=== PATIENT | female | born 1955 | race Caucasian/White ===

== ENCOUNTER → 2016-06-03 | Outpatient (REF) | payer MEDICARE, MEDICAID ==
[~2016-06-03] MED LIST: ASPI81TA11 PO; BUSP15TA47 PO; CLOP75TA2 PO; CRES40TA PO; FAMO40TA3 PO; FURO20TA2 PO; GLIM1TAB PO; MIRT15TA3 PO; SITA50TAB PO; SYNT50TA PO; VESI10TA PO; ZETI10TA2 PO; fenofibrate OR; metoprolol OR; potassium OR
[2016-06-03 14:13] LABS: CALCIUM OXALATE CRYSTALS MODERATE; YEAST LIKE CELL URINE AUTO SMALL
== END ==
LOC: M SMT 13:06
PROVIDERS: ATTEND Nurse Practitioner Women's Health
DX: R31.0 Gross hematuria (principal)
CPT/HCPCS: 81001; 87086; 88108; G0463

== ENCOUNTER → 2016-06-28 | Outpatient (REF) | payer MEDICARE, MEDICAID ==
[2016-06-28 14:37] LABS: PERCENT SATURATION 13.7 % (13.2-37.4)
== END ==
LOC: M LAB REF 13:15
PROVIDERS: ATTEND Internal Medicine Nephrology
DX: D50.9 Iron deficiency anemia, unspecified (principal)

== ENCOUNTER 2016-07-19 17:34 | Inpatient (IN) | payer MEDICARE, MEDICAID ==
[~2016-07-19] VITALS: Ht 152.4 cm; Wt 100.4 kg
[2016-07-19] MEDS ORDERED: CLOM25CA2 PO (19:32)
[2016-07-19] MEDS ORDERED: GLIM2TAB PO (19:32)
[2016-07-19] MEDS ORDERED: POTA10CA PO (19:32)
[2016-07-19] MEDS ORDERED: SITA50TAB PO (19:32)
[2016-07-19] MEDS ORDERED: CALC1CAP31 PO (19:32)
[2016-07-19] MEDS ORDERED: CLOM50CA3 PO (19:32)
[2016-07-19] MEDS ORDERED: FERR325T PO (19:32)
[2016-07-19] MEDS ORDERED: HYDR25T PO (19:32)
[2016-07-19] MEDS ORDERED: METO25TAB PO (19:37)
[2016-07-19] MEDS ORDERED: METH1TAB2 PO (19:37)
[2016-07-19] MEDS ORDERED: SERT-138 PO (19:37)
[2016-07-19] MEDS ORDERED: DOXE10CA PO (19:37)
[2016-07-19] MEDS ORDERED: LEVO75TA4 PO (19:37)
[2016-07-19] MEDS ORDERED: OXYB15TA PO (19:37)
[2016-07-19] MEDS ORDERED: FENO67CA2 PO (19:37)
[2016-07-19 20:00] VITALS: BP 140/52
[2016-07-19] MEDS ORDERED: ONDANSETRON 4MG/2ML VIAL (J2405) IV PRN (20:15)
[2016-07-19] MEDS ORDERED: DEXTROSE 50% 50 ML SYRINGE IV PRN (20:15)
[2016-07-19] MEDS ORDERED: ACETAMINOPHEN TAB 650MG DOSE (2X325MG) PO PRN (20:15)
[2016-07-19] MEDS ORDERED: GLUCOSE 4 GM CHEW TABLET PO PRN (20:15)
[2016-07-19] MEDS ORDERED: GLUCAGON FOR INJ 1 MG VIAL (J1610) SC PRN (20:15)
[2016-07-19] MEDS ORDERED: IPRATROPIUM 0.5MG/ALBUTEROL 2.5MG INH SOL UD 3ML (DUONEB)(J7620) NEB PRN (20:15)
[2016-07-19] MEDS ORDERED: PERCOCET 5MG/325MG TAB PO PRN (20:15)
[2016-07-19] MEDS ORDERED: ONDANSETRON 4 MG TAB (S0181) PO PRN (20:15)
--- NOTE | 2016-07-19 20:41 | HPEPDOC ---
Medical History and Physical Date of Admission Jul 19, 2016 at 18:18 History and Physical HISTORY AND PHYSICAL Date of admission: 07/19/2016 PCP: Eva Muñiz in [facility] Chief complaint: Hypoxic HPI: 60-year-old female with COPD on 2 L home O2, depression, diabetes mellitus type 2, GERD, hyperlipidemia, hypertension, history of AK, hypothyroidism, overactive bladder, horshoe kidney, unspecified CHF who presented to [facility] after her family thought that she was confused this morning and might of had a facial droop. At [facility], they were unable to appreciate any facial droop, and a CT head was unremarkable. However, she was quite hypoxic. She initially arrived satting in the 70s, and needed a nonrebreather. After dose of Lasix and Solu-Medrol, as well as DuoNeb's, they were able to wean her to 4 L nasal cannula. Additionally, at [facility], they noticed that her d- dimer and BNP were both elevated. She underwent a right nephrostomy tube placement yesterday with interventional radiology here at [facility] [place]. Upon my interview with her, she is a challenging historian. She presents essentially no complaints to me, and her review of systems is relatively negative as well. She is not confused on my exam, but she does require redirecting. She denies any chest pain here, but reported some intermittent chest pain at [facility]. An EKG at [facility]. was unremarkable, and a troponin there was negative. In light of the fact that she had recently had a nephrostomy tube placed here, and was scheduled to have another urologic procedure here tomorrow, [facility] emergency department sought transfer. Past medical history: COPD on 2 L home O2, depression, diabetes mellitus type 2 , GERD, hyperlipidemia, hypertension, history of AK, hypothyroidism, overactive bladder, horshoe kidney, unspecified CHF Past surgical history: Cardiac stent Family history: Kidney disease, heart disease, lung disease Social history: The patient currently lives alone. She denies any tobacco or alcohol use. Allergies: Latex and dextromethorphan Review of systems: General: negative for fever and chills Eyes: Negative for vision changes and ocular discharge ENT: Negative for sore throat and nose bleed Cardiovascular: Negative for chest pain and palpitations Respiratory: Negative for cough and shortness of breath GI: Negative for nausea, vomiting, diarrhea, constipation Musculoskeletal: Negative for neck and back pain Neuro: Negative for headache, dizziness, numbness, tingling Psych: Positive for depression. Negative for suicidal ideation Endocrine: Positive for polyuria : Negative for dysuria Heme: Negative for bruising and bleeding Home meds: See below Physical exam: Vital signs: Vital Sign - Last 24 Hours 07/19/16 07/19/16 20:00 21:08 Temp 96.8 Pulse 100 100 Resp 18 B/P 140/52 Pulse Ox 97 O2 Delivery Nasal Cannula O2 Flow Rate 2.0 Gen.: awake, requires redirection, no acute distress Eyes: Extraocular movements intact, normal sclera ENT: Moist mucous membranes Cardiovascular: RRR, no murmurs rubs or gallops Lungs: dimished breath sounds, but no wheeze or rhonchi Abdomen: Soft, NT/ND, normal BS Musculoskeletal: normal range of motion Extremities: No peripheral edema Neuro: oriented 3, normal speech, no focal deficits, no focal deficit or facial droop Psych: Normal mood with congruent affect Labs and radiology: See below BUN 24, creatinine 2.57 Hemoglobin 10.2 D-dimer elevated Lactate and troponin are unremarkable BMP greater than 1800 CT of the head unremarkable Chest x-ray shows concern for pulmonary edema Assessment and plan: 60-year-old female with COPD on 2 L home O2, depression, diabetes mellitus type 2, GERD, hyperlipidemia, hypertension, CAD status post cardiac stents, history of AK, hypothyroidism, overactive bladder, horshoe kidney, unspecified CHF who was transferred from [facility] for hypoxia. 1. Hypoxia: Etiology for this is multifactorial. Patient's d-dimer is elevated, and given her kidney function, we cannot complete a CTA. We will assess a d- dimer to rule out any pulmonary embolism as the source of her hypoxia. Additionally, it appears that she had some volume overload, as a chest x-ray at [facility] showed concern for pulmonary edema, and her BNP was elevated. She received a dose of Lasix at [facility], and she does not appear to be volume overloaded at this time. I will hold off on giving her any additional Lasix. Also of concern, is a possible COPD exacerbation. She does not have any wheeze upon my exam, but the ED physician at [facility] reported significant wheezing and rhonchi, and the patient has already received Solu-Medrol, DuoNeb' s by the time I saw her. At this time, we will continue her on Solu-Medrol, Levaquin, and DuoNeb's. We also will assess echo, as we do not have one on file. 2. Chest pain: The patient currently denies any chest pain here. However, there is a report at the outside ER, that she had chest pain. An initial EKG and troponin were unremarkable. We'll continue to trend troponins here. We will also monitor on telemetry. 3. Elevated creatinine: The patient's creatinine is 2.57. She is noted to have some degree of chronic kidney disease, but it is unclear what her baseline is. The last creatinine we have in our EMR was 3 years ago and was in the upper ones. She is already received a dose of IV Lasix today, and we will reassess her kidney function in the morning before administering any further IV Lasix. Continue home Rocaltrol. 4. Potential confusion: The patient is not confused upon my exam, but she does require frequent redirection. CT head at the outside ER was unremarkable. We will check a urine culture, as she had recent instrumentation of her urinary tract. Of note, upon reviewing her home medications, she takes a TCA in the morning, and 2 TCAs at night. We will hold both TCAs that she is receiving at night. We will also hold her nightly Atarax. Currently she is afebrile with a normal white count. Check ABG. 5. Diabetes mellitus type 2: Hold home glimepiride and Januvia. Use sliding scale insulin while in-house. 6. CAD status post cardiac stents, history of AK, hyperlipidemia: Continue home aspirin, Plavix, anxiety, statin, beta donald. 7. Chronic unknown CHF: We will get an echo to assess the patient's cardiac function. Continue home by mouth Lasix and KCl. 8. Hypothyroidism: Continue home Synthroid. 9. Depression: Continue home Zoloft and a.m. TCA. We are holding her p.m. doxepin and p.m. clomipramine secondary to her potential confusion. 10. Horseshoe kidney with a recent right nephrostomy tube placement: I have spoken to Dr. Hernandez who is on-call for her primary urologist. He is aware of her admission, and has canceled her procedure tomorrow. He says that they will reschedule when the patient is well again. DVT prophylaxis: Heparin Dispo: admit as an inpatient to the service of Dr. Martinez CODE STATUS: DNR/DNI Vital Signs see above Home Medications Scheduled (Methenamine Hippurate) 1 Gm Tab 1 GM PO BID Aspirin (Aspirin Low Dose) 81 Mg Tab 81 MG PO DAILY Calcitriol (Calcitriol) 0.25 Mcg Cap 0.25 MCG PO QWEEK MONDAYS Clomipramine HCl (Clomipramine HCl) 25 Mg Cap 25 MG PO QAM Clomipramine HCl (Clomipramine HCl) 50 Mg Cap 50 MG PO QHS Clopidogrel Bisulfate (Clopidogrel) 75 Mg Tab 75 MG PO DAILY STOPPED MED UNTIL AFTER SURGERY SCHEDULED ON 07/20 Doxepin HCl (Doxepin HCl) 10 Mg Cap 10 MG PO QHS Ezetimibe (Zetia) 10 Mg Tab 10 MG PO QHS Famotidine (Famotidine) 40 Mg Tab 40 MG PO QHS Fenofibrate (Fenofibrate Micronized) 67 Mg Cap 67 MG PO DAILY Ferrous Sulfate (Ferrous Sulfate) 325 Mg Tab 325 MG PO DAILY Furosemide (Furosemide) 20 Mg Tab 20 MG PO DAILY NORMALLY TAKES QAM, TOOK LAST NIGHT 07/18 Glimepiride (Glimepiride) 2 Mg Tab 2 MG PO DAILY Hydroxyzine HCl (Hydroxyzine HCl) 25 Mg Tab 25 MG PO QHS Levothyroxine Sodium (Synthroid) 75 Mcg Tab 75 MCG PO DAILY Metoprolol Tartrate (Metoprolol Tartrate) 25 Mg Tab 25 MG PO BID Oxybutynin Chloride (Oxybutynin Chloride ER) 15 Mg Tab 15 MG PO DAILY Potassium Chloride (Klor-Con M10) 10 Meq Tabcr 10 MEQ PO QHS Rosuvastatin Calcium (Crestor) 40 Mg Tab 40 MG PO QPM PT STATES HAS NOT TAKEN IN A FEW DAYS Sertraline HCl (Sertraline HCl) 100 Mg Tab 150 MG PO QHS STOPPEDUNTIL AFTER SURGERY SCHEDULED ON 07/20 Sitagliptin (Januvia) 50 Mg Tab 50 MG PO DAILY Allergies Coded Allergies: Dextromethorphan (Unverified Allergy, Unknown, HIVES, 07/19/16) Latex (Verified Allergy, Unknown, 12/10/13) MILDRED HOBBS Jul 19, 2016 20:41
[2016-07-19] MEDS: FAMOTIDINE 20 MG TAB PO SCH (20:51)
[2016-07-19] MEDS: CLOPIDOGREL 75 MG TAB PO SCH (20:51)
[2016-07-19] MEDS: FUROSEMIDE 20 MG TAB PO SCH (20:51)
[2016-07-19] MEDS: ASPIRIN 81 MG ENTERIC TAB PO SCH (20:51)
[2016-07-19] MEDS ORDERED: LevoFLOXacin 750 MG TABLET PO SCH (21:00)
[2016-07-19] MEDS: oxyBUTYnin *DITROPAN XL* 5 MG TABCR PO SCH (21:05)
[2016-07-19] MEDS: NYSTATIN 100,000 UNITS/GM TOPICAL PWD 15 GM TOP SCH (21:06)
[2016-07-19] MEDS: methylPREDNISolone INJ 40 MG/1 ML VIAL (J2920) IV SCH (21:06)
[2016-07-19] MEDS: HEPARIN SOD (PORCINE) 5000 UNITS/ML VIAL SC SCH (21:06)
[2016-07-19] MEDS: SERTRALINE 100 MG TAB PO SCH (21:07)
[2016-07-19] MEDS: POTASSIUM CHLORIDE 10 MEQ SR TABLET PO SCH (21:08)
[2016-07-19] MEDS: METOPROLOL TART 25 MG TABLET PO SCH (21:08)
[2016-07-19] MEDS: ROSUVASTATIN 10 MG TAB (CRESTOR) PO SCH (21:08)
[2016-07-19] MEDS: EZETIMIBE 10 MG TAB (ZETIA) PO SCH (21:08)
[2016-07-19] MEDS: HumaLOG INSULIN (NovoLOG) PER UNIT SC SCH (21:20)
[2016-07-19 21:52] LABS: ABG BASE EXCESS 1.8 (-2.0-2.0); ABG HCO3 30.3 MEQ/L (22.0-26.0); ABG PARTIAL PRESSURE O2 112.3 mmHg (75.0-100.0); ABG STANDARD HCO3 26.1 MEQ/L (22.0-26.0); ABG TOTAL CO2 32.5 MEQ/L (23.0-31.0); ABG pH (ARTERIAL) 7.253 UNITS (7.350-7.450)
[2016-07-19 21:56] LABS: ABG PARTIAL PRESSURE CO2 70.2 mmHg (35.0-45.0)
[2016-07-20] VITALS (8 sets, daily range): BP systolic 101–136; BP diastolic 49–79; O2SAT 93
[2016-07-20] MEDS: IPRATROPIUM 0.5MG/ALBUTEROL 2.5MG INH SOL UD 3ML (DUONEB)(J7620) NEB SCH ×7 (01:44→23:45)
[2016-07-20 04:48] LABS: ABG BASE EXCESS 2.3 (-2.0-2.0); ABG HCO3 30.3 MEQ/L (22.0-26.0); ABG PARTIAL PRESSURE CO2 65.6 mmHg (35.0-45.0); ABG STANDARD HCO3 26.5 MEQ/L (22.0-26.0); ABG TOTAL CO2 32.3 MEQ/L (23.0-31.0); ABG pH (ARTERIAL) 7.282 UNITS (7.350-7.450)
[2016-07-20 05:49] LABS: BASO % 0.1 % (0.0-1.0); EOS % 0.4 % (0.0-3.0); LARGE UNSTAINED CELL % 0.5 % (0.0-4.0); LYMPH # 0.5 K/mm3 (1.5-4.5); LYMPH % 5.3 % (24.0-44.0); MEAN CORPUSCULAR HEMOGLOBIN 26.6 pg (27.0-33.0); MEAN CORPUSCULAR HGB CONC 29.2 g/dl (32.0-36.5); MEAN CORPUSCULAR VOLUME 91.2 fl (80.0-96.0); MONO # 0.2 K/mm3 (0.0-0.8); MONO % 2.1 % (0.0-5.0); NEUTROPHILS # 7.8 K/mm3 (1.8-7.7); NEUTROPHILS % 91.6 % (36.0-66.0); PLATELET COUNT, AUTOMATED 281 k/mm3 (150-450); RED CELL DISTRIBUTION WIDTH 14.2 % (11.5-14.5); WHITE BLOOD COUNT 8.5 K/mm3 (4.0-10.0)
[2016-07-20 05:54] LABS: ADD MORPHOLOGY? YES
[2016-07-20] MEDS: LEVOTHYROXINE 0.075 MG TAB (75 MCG) PO SCH (05:57)
[2016-07-20] MEDS: HEPARIN SOD (PORCINE) 5000 UNITS/ML VIAL SC SCH ×3 (05:57→21:25)
[2016-07-20] MEDS: methylPREDNISolone INJ 40 MG/1 ML VIAL (J2920) IV SCH ×3 (05:57→21:25)
[2016-07-20 05:59] LABS: ANION GAP 7 MEQ/L (8-16); BLOOD UREA NITROGEN 37 MG/DL (7-18); CALCIUM LEVEL 8.9 MG/DL (8.8-10.2); CARBON DIOXIDE LEVEL 31 MEQ/L (21-32); CHLORIDE LEVEL 101 MEQ/L (98-107); CREATININE FOR GFR 2.88 MG/DL (0.55-1.02); GLOMERULAR FILTRATION RATE 17.6 (>45); GLUCOSE, FASTING 211 MG/DL (80-110); MAGNESIUM LEVEL 1.7 MG/DL (1.8-2.4); POTASSIUM SERUM 4.2 MEQ/L (3.5-5.1); SODIUM LEVEL 139 MEQ/L (136-145)
[2016-07-20 07:25] LABS: HYPOCHROMASIA 1+
[2016-07-20] MEDS ORDERED: MAG SULF 1GM/100ML (MAG RUN) 1 GM in APPROPRIATE DILUENT 1 EA IV ONE (08:00)
[2016-07-20] MEDS: oxyBUTYnin *DITROPAN XL* 5 MG TABCR PO SCH (08:36)
[2016-07-20] MEDS: ASPIRIN 81 MG ENTERIC TAB PO SCH (08:36)
[2016-07-20] MEDS: CLOPIDOGREL 75 MG TAB PO SCH (08:37)
[2016-07-20] MEDS: FERROUS SULFATE 325MG TAB PO SCH (08:37)
[2016-07-20] MEDS: FUROSEMIDE 20 MG TAB PO SCH (08:37)
[2016-07-20] MEDS: METOPROLOL TART 25 MG TABLET PO SCH ×2 (08:37→21:29)
[2016-07-20] MEDS: NYSTATIN 100,000 UNITS/GM TOPICAL PWD 15 GM TOP SCH ×2 (08:39→21:25)
[2016-07-20] MEDS: HumaLOG INSULIN (NovoLOG) PER UNIT SC SCH ×4 (08:39→21:00)
--- NOTE | 2016-07-20 12:19 | REP ---
Chest x-ray: Two views. History: VQ scan. Shortness of breath. Elevated D-dimer. Comparison chest x-ray September 06, 2004. Findings: Right aortic arch is again seen. There is a new plate-like atelectasis in the left perihilar region versus fibrosis. No pleural effusion is seen. No infiltrate is noted. Coronary artery stent material is visible. EKG monitoring electrodes and oxygen delivery tubing are seen. Impression: Plate-like atelectasis versus linear scarring left mid lung zone. Status post coronary artery stenting. Right aortic arch. Signed by Curtis Garcia MD 07/20/2016 12:27 P
--- NOTE | 2016-07-20 12:28 | REP ---
V/Q SCAN: Following the intravenous administration of 5.4 mCi of technetium 99m tagged MAA and the inhalation of 1.0 mCi of technetium 99m DTPA aerosol, multiple images of the lungs are obtained in various projections. The heart appears enlarged causing a matching defect on the left lung base. Small subsegmental matching posterior defects seen in the right lower lobe as well as in the left lower lobe. I do not see areas of significant V/Q mismatch. IMPRESSION: Findings consistent with a low probability of pulmonary embolism. Signed by Tolu Lin MD 07/21/2016 04:36 P
--- NOTE | 2016-07-20 13:00 | IPNPDOC ---
Subjective Date Seen The patient was seen on 07/20/16. Subjective Chief Complaint/HPI The patient is a 60-year-old female admitted with a reason for visit of Hypoxia. Events since last encounter feeling better, confusion resolved. no fever or chills, breathing better, no chest pain , has some cough , no nausea or vomiting or diarrhea Objective Physical Examination General Exam: Positive: Alert, No Acute Distress Eye Exam: Positive: Conjunctiva & lids normal, EOMI, PERRLA, Negative: Sclera icteric ENT Exam: Positive: Atraumatic, Mucous membr. moist/pink, Pharynx Normal Neck Exam: Positive: Supple, Negative: JVD, thyromegaly Chest Exam: Positive: Diminished, Rales, Wheezing Heart Exam: Positive: Normal S1, Normal S2, Rate Normal, Regular Rhythm, Negative: Murmurs, Rubs Telemetry: Positive: No significant arrhythmia Abdomen Exam: Positive: Normal bowel sounds, Soft, Negative: Hepatospenomegaly, Tenderness Extremity Exam: Positive: Edema Skin Exam: Positive: Nl turgor and temperature, Negative: Breakdown, Rash Assessment /Plan Problems (1) Acute on chronic respiratory failure with hypoxia and hypercapnia Status: Acute Problem Text: multifactorial due to copd and chf exacerbation and sedative medication rule out pulmonary embolism as has elevated d dimer. awaiting vq scan. patient also had procedure the day prior to admission and received midazolam and fentanyl which could also have worsened her respiratory failure. will continue with nebulizations, lasix. will repeat ABG . (2) Acute metabolic encephalopathy Status: Acute Problem Text: due to hypercarbia, improving. (3) COPD exacerbation Status: Acute Problem Text: continue nebs , steroids and antibiotics. (4) Acute kidney injury superimposed on CKD Status: Acute Problem Text: has obstructive uropathy , has a nephrostomy drain on the right placed on 07/18/16 drain bad to gravity (5) Obstructive uropathy Status: Acute Problem Text: due to horse shoe kidney has nephrostomy bag (6) MARY on CPAP Status: Chronic (7) Morbid obesity Status: Chronic (8) Horseshoe kidney Status: Chronic (9) Hypothyroid Status: Chronic Problem Text: continue synthroid (10) Hyperlipidemia Status: Chronic (11) Hypertension Status: Chronic Problem Text: continue metoprolol (12) CAD (coronary artery disease) Status: Chronic Problem Text: continue metoprolol, statin , asa and plavix. (13) Overactive bladder Status: Chronic Problem Text: oxybutynin (14) Depression Status: Chronic Problem Text: sertraline (15) Diabetes Status: Chronic (16) CHF (congestive heart failure) Status: Chronic Problem Text: continue lasix unknown type at this time will get echo. VS, I&O, 24H, Fishbone Vital Signs/I&O Vital Signs Date Time Temp Pulse Resp B/P Pulse Ox O2 Delivery O2 Flow Rate FiO2 07/20/16 12:00 97.4 96 18 133/62 96 Nasal Cannula 2.0 I&O- Last 24 Hours up to 6 AM 07/20/16 06:00 Intake Total 500 ml Output Total 400 ml Balance 100 ml Laboratory Data 24H LABS Laboratory Tests 2 07/19/16 20:49: Creatine Kinase MB 1.6, Creatine Kinase MB Relative Index 3.13, Total Creatine Kinase 51, Troponin I < 0.02 07/19/16 21:01: Bedside Glucose (Misc Panel) 228H 07/19/16 21:47: Arterial Blood pH 7.253L, Arterial Blood Partial Pressure CO2 70.2*H, Arterial Blood Partial Pressure O2 112.3H, Arterial Blood Total CO2 32.5H, Arterial Blood HCO3 30.3H, Arterial Blood Base Excess 1.8, Arterial Blood Oxygen Saturation 98.3, Blood Gas Bicarbonate Standard 26.1H 07/19/16 23:50: D-Dimer, Quantitative 882.4H 07/20/16 04:01: Arterial Blood pH 7.282L, Arterial Blood Partial Pressure CO2 65.6*H, Arterial Blood Partial Pressure O2 84.0, Arterial Blood Total CO2 32.3H, Arterial Blood HCO3 30.3H, Arterial Blood Base Excess 2.3H, Arterial Blood Oxygen Saturation 95.9, Blood Gas Bicarbonate Standard 26.5H 07/20/16 05:25: Anion Gap 7L, Basophilic Stippling 1+, White Blood Count 8.5, Red Blood Count 3.57L, Hemoglobin 9.5L, Hematocrit 32.5L, Mean Corpuscular Volume 91.2, Mean Corpuscular Hemoglobin 26.6L, Mean Corpuscular Hemoglobin Concent 29.2L, Red Cell Distribution Width 14.2, Platelet Count 281, Neutrophils (%) (Auto) 91.6H, Lymphocytes (%) (Auto) 5.3L, Monocytes (%) (Auto) 2.1, Eosinophils (%) (Auto) 0.4, Basophils (%) (Auto) 0.1, Neutrophils # (Auto) 7.8H, Lymphocytes # (Auto) 0.5L, Monocytes # (Auto) 0.2, Eosinophils # (Auto) 0.0, Basophils # (Auto) 0.0, Blood Urea Nitrogen 37H, Creatinine 2.88H, Sodium Level 139, Potassium Level 4.2 , Chloride Level 101, Carbon Dioxide Level 31, Calcium Level 8.9, Total Creatine Kinase 47, Creatine Kinase MB 1.4, Creatine Kinase MB Relative Index 2.97, Glomerular Filtration Rate 17.6L, Hypochromasia 1+, Large Unclassified Cells # 0.0, Large Unclassified Cells % 0.5, Magnesium Level 1.7L, Platelet Estimate NORMAL, Troponin I < 0.02 07/20/16 12:18: Bedside Glucose (Misc Panel) 133H CBC/BMP Laboratory Tests 07/20/16 05:25 Calcium Level 8.9, Total Creatine Kinase 47, Red Blood Count 3.57 L, Mean Corpuscular Volume 91.2, Mean Corpuscular Hemoglobin 26.6 L, Mean Corpuscular Hemoglobin Concent 29.2 L, Red Cell Distribution Width 14.2, Neutrophils (%) ( Auto) 91.6 H, Lymphocytes (%) (Auto) 5.3 L, Monocytes (%) (Auto) 2.1, Eosinophils (%) (Auto) 0.4, Basophils (%) (Auto) 0.1, Neutrophils # (Auto) 7.8 H , Lymphocytes # (Auto) 0.5 L, Monocytes # (Auto) 0.2, Eosinophils # (Auto) 0.0, Basophils # (Auto) 0.0 Microbiology Microbiology 07/20/16 Urine Culture, Received Pending STEPHIE OH MD Jul 20, 2016 13:00
[2016-07-20 17:42] LABS: ABG HCO3 28.9 MEQ/L (22.0-26.0); ABG PARTIAL PRESSURE CO2 56.8 mmHg (35.0-45.0); ABG STANDARD HCO3 26.3 MEQ/L (22.0-26.0); ABG TOTAL CO2 30.7 MEQ/L (23.0-31.0); ABG pH (ARTERIAL) 7.325 UNITS (7.350-7.450)
[2016-07-20] MEDS ORDERED: IPRATROPIUM 0.5MG/ALBUTEROL 2.5MG INH SOL UD 3ML (DUONEB)(J7620) NEB SCH (20:00)
[2016-07-20] MEDS: ROSUVASTATIN 10 MG TAB (CRESTOR) PO SCH (21:26)
[2016-07-20] MEDS: POTASSIUM CHLORIDE 10 MEQ SR TABLET PO SCH (21:27)
[2016-07-20] MEDS: SERTRALINE 100 MG TAB PO SCH (21:28)
[2016-07-20] MEDS: EZETIMIBE 10 MG TAB (ZETIA) PO SCH (21:29)
[2016-07-20] MEDS: FAMOTIDINE 20 MG TAB PO SCH (21:29)
[2016-07-21] MEDS ORDERED: SLF 3 ML SYR IV PRN (00:30)
[2016-07-21] MEDS: IPRATROPIUM 0.5MG/ALBUTEROL 2.5MG INH SOL UD 3ML (DUONEB)(J7620) NEB SCH ×5 (04:15→20:22)
[2016-07-21] MEDS: methylPREDNISolone INJ 40 MG/1 ML VIAL (J2920) IV SCH (04:18)
[2016-07-21 05:45] VITALS: BP 115/53
[2016-07-21] MEDS: LEVOTHYROXINE 0.075 MG TAB (75 MCG) PO SCH (05:54)
[2016-07-21] MEDS: HEPARIN SOD (PORCINE) 5000 UNITS/ML VIAL SC SCH ×3 (05:54→21:16)
[2016-07-21] MEDS: SLF 3 ML SYR IV SCH ×3 (05:54→21:16)
[2016-07-21 06:20] LABS: EOS % 0.2 % (0.0-3.0); LARGE UNSTAINED CELL # 0.1 K/mm3 (0.0-0.4); LARGE UNSTAINED CELL % 0.6 % (0.0-4.0); LYMPH # 0.6 K/mm3 (1.5-4.5); MEAN CORPUSCULAR HEMOGLOBIN 26.6 pg (27.0-33.0); MEAN CORPUSCULAR HGB CONC 29.1 g/dl (32.0-36.5); MEAN CORPUSCULAR VOLUME 91.3 fl (80.0-96.0); MONO # 0.3 K/mm3 (0.0-0.8); MONO % 2.5 % (0.0-5.0); NEUTROPHILS # 9.2 K/mm3 (1.8-7.7); NEUTROPHILS % 90.7 % (36.0-66.0); PLATELET COUNT, AUTOMATED 327 k/mm3 (150-450); RED CELL DISTRIBUTION WIDTH 14.2 % (11.5-14.5); WHITE BLOOD COUNT 10.1 K/mm3 (4.0-10.0)
--- NOTE | 2016-07-21 06:20 | ECHO ---
DATE OF PROCEDURE: 07/20/2016 DATE OF : 1955 AGE: 60 REFERRING PROVIDER: Dr. Neelima Carlton. PATIENT LOCATION: Room 3220 REASON FOR ECHOCARDIOGRAM: Heart failure. 2D MEASUREMENTS: IVS: 1.2 cm LV: 3.1 cm LVPW: 1.3 cm LA: 3.7 cm Aorta: 3.1 cm IVC: 1.5 cm DOPPLER MEASUREMENTS: Peak velocity across the aortic valve: 1.6 m/s Peak velocity across the LVOT: 0.85 m/s Mitral E: 1.1 Mitral A: 1.4 Ratio 0.8 2D COMMENTS: 1. Normal left ventricular size, wall thickness and normal global left ventricular systolic function. The estimated global left ventricular systolic ejection fraction is 60% to 65%. 2. Normal left atrium. Normal right atrium and right ventricle. 3. The atrial septum appeared to be normal without evidence of defect or shunt. 4. Normal aortic root. 5. Trace to small pericardial effusion noted around the heart, no evidence of cardiac tamponade. 6. Moderately calcified aortic valve, leaflet excursion was not well visualized. Mildly calcified mitral annulus with normal anterior mitral valve leaflet motion. Normal tricuspid valve. The pulmonic valve appeared to be normal in limited views. The proximal pulmonary artery branches were not well visualized. 7. The inferior vena cava was normal in size, central venous pressure is most likely normal. DOPPLER: It detects trace aortic regurgitation noted in limited views and trace mitral regurgitation. Abnormal relaxation pattern was noted across the mitral valve leaflets as well as the mitral valve annulus consistent with a delayed relaxation. IMPRESSION: 1. Normal global left ventricular systolic function with probably mild concentric left ventricular hypertrophy. There are some features of left ventricular diastolic dysfunction, grade 1. 2. Aortic valve sclerosis with trace aortic regurgitation and trivial aortic stenosis. 3. Mitral annulus calcification with trace mitral regurgitation. 4. Trace to small pericardial effusion noted around the heart, no evidence of cardiac tamponade.
[2016-07-21 06:21] LABS: CALCIUM LEVEL 8.7 MG/DL (8.8-10.2); CREATININE FOR GFR 3.08 MG/DL (0.55-1.02); GLOMERULAR FILTRATION RATE 16.3 (>45); MAGNESIUM LEVEL 2.2 MG/DL (1.8-2.4); POTASSIUM SERUM 4.7 MEQ/L (3.5-5.1)
[2016-07-21 07:30] VITALS: BP 126/59
[2016-07-21] MEDS: NS 1,000 ML IV SCH ×2 (08:27→21:16)
[2016-07-21] MEDS: HumaLOG INSULIN (NovoLOG) PER UNIT SC SCH ×4 (08:28→20:35)
[2016-07-21] MEDS: NYSTATIN 100,000 UNITS/GM TOPICAL PWD 15 GM TOP SCH ×2 (08:28→21:15)
[2016-07-21] MEDS: ASPIRIN 81 MG ENTERIC TAB PO SCH (08:28)
[2016-07-21] MEDS: oxyBUTYnin *DITROPAN XL* 5 MG TABCR PO SCH (08:29)
[2016-07-21] MEDS: predniSONE 20 MG TAB PO SCH (08:29)
[2016-07-21] MEDS: FERROUS SULFATE 325MG TAB PO SCH (08:29)
[2016-07-21] MEDS: CLOPIDOGREL 75 MG TAB PO SCH (08:29)
[2016-07-21] MEDS: METOPROLOL TART 25 MG TABLET PO SCH ×2 (08:31→21:15)
--- NOTE | 2016-07-21 11:03 | IPNPDOC ---
Subjective Date Seen The patient was seen on 07/21/16. Subjective Chief Complaint/HPI The patient is a 60-year-old female admitted with a reason for visit of Hypoxia. Events since last encounter feeling better, no fever or chills, no shortness of breath any more than usual, no chest pain , she is at her baseline oxygen requirement. , nausea or vomiting or diarrhea. Objective Physical Examination General Exam: Positive: Alert, No Acute Distress Eye Exam: Positive: Conjunctiva & lids normal, EOMI, PERRLA, Negative: Sclera icteric ENT Exam: Positive: Atraumatic, Mucous membr. moist/pink, Pharynx Normal Neck Exam: Positive: Supple, Negative: JVD, thyromegaly Chest Exam: Positive: Diminished, Rales, Wheezing Heart Exam: Positive: Normal S1, Normal S2, Rate Normal, Regular Rhythm, Negative: Murmurs, Rubs Telemetry: Positive: No significant arrhythmia Abdomen Exam: Positive: Normal bowel sounds, Soft, Negative: Hepatospenomegaly, Tenderness Extremity Exam: Positive: Edema Skin Exam: Positive: Nl turgor and temperature, Negative: Breakdown, Rash Assessment /Plan Problems (1) Acute on chronic respiratory failure with hypoxia and hypercapnia Status: Acute Problem Text: Pateint had low pH and high pco2 in her abg on admission showing acute hypercarbic respiratory failure. multifactorial due to copd and chf exacerbation and sedative medication VQ scan low probability for pulmonary embolism. patient also had procedure the day prior to admission and received midazolam and fentanyl which could also have worsened her respiratory failure. will continue with nebulizations, steroids. (2) Acute metabolic encephalopathy Status: Resolved Problem Text: due to hypercarbia (3) COPD exacerbation Status: Acute Problem Text: continue nebs , steroids , CXR with atelectasis vs fibrosis so antibiotic stopped. (4) Acute kidney injury superimposed on CKD Status: Acute Problem Text: Baseline creatinine 1.4 to 1.6 prior to nephrostomy placement on 07/11/16 Now acute worsening of renal function will rule out obstruction will get new renal and bladder US. Possibility of Ischemic ATN is also high as patient was in acute hypoxic and hypercarbic respiratory failure for unknown duration of time. Was very hypoxic on presentation to the other hospital. Also clinically patient looks dry at this point so will give gentle hydration , stop lasix and levofloxacin. has obstructive uropathy with right staghorn calculus and right hydronephrosis. However the right has only 20% overall function. (5) Obstructive uropathy Status: Acute Problem Text: due to horse shoe kidney and staghorn calculi on the right. left as 70% function and right has 20% function. has nephrostomy bag (6) MARY on CPAP Status: Chronic (7) Morbid obesity Status: Chronic (8) Horseshoe kidney Status: Chronic (9) Hypothyroid Status: Chronic Problem Text: continue synthroid (10) Hyperlipidemia Status: Chronic (11) Hypertension Status: Chronic Problem Text: continue metoprolol (12) CAD (coronary artery disease) Status: Chronic Problem Text: continue metoprolol, statin , asa and plavix. (13) Overactive bladder Status: Chronic Problem Text: oxybutynin (14) Depression Status: Chronic Problem Text: sertraline (15) Diabetes Status: Chronic (16) CHF (congestive heart failure) Status: Chronic Problem Text: continue lasix unknown type at this time will get echo. (17) Staghorn calculus Status: Chronic Problem Text: follows with Dr rizo. Plan/VTE VTE Prophylaxis Ordered?: Yes VS, I&O, 24H, Fishbone Vital Signs/I&O Vital Signs Date Time Temp Pulse Resp B/P Pulse Ox O2 Delivery O2 Flow Rate FiO2 07/21/16 08:31 88 126/59 07/21/16 07:30 97.3 22 99 Nasal Cannula 2.0 I&O- Last 24 Hours up to 6 AM 07/21/16 06:00 Intake Total 460 ml Output Total 1100 ml Balance -640 ml Laboratory Data 24H LABS Laboratory Tests 2 07/20/16 12:18: Bedside Glucose (Misc Panel) 133H 07/20/16 12:53: Creatine Kinase MB 1.8, Creatine Kinase MB Relative Index 1.83, Total Creatine Kinase 98#, Troponin I < 0.02 07/20/16 17:00: Arterial Blood pH 7.325L, Arterial Blood Partial Pressure CO2 56.8H, Arterial Blood Partial Pressure O2 81.0, Arterial Blood Total CO2 30.7, Arterial Blood HCO3 28.9H, Arterial Blood Base Excess 2.0, Arterial Blood Oxygen Saturation 95.4, Blood Gas Bicarbonate Standard 26.3H 07/20/16 17:05: Bedside Glucose (Misc Panel) 107 07/20/16 21:15: Bedside Glucose (Misc Panel) 151H 07/21/16 05:35: Anion Gap 8, White Blood Count 10.1H, Red Blood Count 3.54L, Hemoglobin 9.4L, Hematocrit 32.4L, Mean Corpuscular Volume 91.3, Mean Corpuscular Hemoglobin 26.6L, Mean Corpuscular Hemoglobin Concent 29.1L, Red Cell Distribution Width 14.2, Platelet Count 327, Neutrophils (%) (Auto) 90.7H, Lymphocytes (%) (Auto) 6.0L, Monocytes (%) (Auto) 2.5, Eosinophils (%) (Auto) 0.2, Basophils (%) (Auto ) 0.0, Neutrophils # (Auto) 9.2H, Lymphocytes # (Auto) 0.6L, Monocytes # (Auto) 0.3, Eosinophils # (Auto) 0.0, Basophils # (Auto) 0.0, Blood Urea Nitrogen 51H, Creatinine 3.08H, Sodium Level 139, Potassium Level 4.7, Chloride Level 100, Carbon Dioxide Level 31, Calcium Level 8.7L, Glomerular Filtration Rate 16.3L, Large Unclassified Cells # 0.1, Large Unclassified Cells % 0.6, Magnesium Level 2.2 CBC/BMP Laboratory Tests 07/21/16 05:35 Calcium Level 8.7 L, Red Blood Count 3.54 L, Mean Corpuscular Volume 91.3, Mean Corpuscular Hemoglobin 26.6 L, Mean Corpuscular Hemoglobin Concent 29.1 L, Red Cell Distribution Width 14.2, Neutrophils (%) (Auto) 90.7 H, Lymphocytes (%) ( Auto) 6.0 L, Monocytes (%) (Auto) 2.5, Eosinophils (%) (Auto) 0.2, Basophils (% ) (Auto) 0.0, Neutrophils # (Auto) 9.2 H, Lymphocytes # (Auto) 0.6 L, Monocytes # (Auto) 0.3, Eosinophils # (Auto) 0.0, Basophils # (Auto) 0.0 Microbiology Microbiology 07/20/16 Urine Culture - Final, Complete STEPHIE OH MD Jul 21, 2016 11:03
[2016-07-21 12:40] VITALS: BP 122/60
--- NOTE | 2016-07-21 13:45 | REP ---
RENAL ULTRASOUND: Real-time sonographic evaluation of the kidneys performed and compared to prior CT at [facility] 06/13/2016. The CT shows a horseshoe kidney type configuration with renal parenchymal bridging the midline. This is difficult to visualize by today's ultrasound. The right kidney measures 9.3 x 3.6 x 4.4 cm and left kidney 13.4 x 6.0 x 4.7 cm. Echotexture is somewhat hyperechoic suggesting medical renal disease. There is no definite hydronephrosis bilaterally. There appears to be a calculus in the mid right renal collecting system 1.9 cm in diameter. There appear to be several stones in the left renal collecting system, the largest in the mid aspect 1.7 cm and 1.9 cm in diameter. The study is somewhat limited due to patient body habitus. Urinary bladder is not distended and not evaluated. IMPRESSION: Prior CT showed horseshoe kidney but this configuration is difficult to visualize by ultrasound. Right kidney is atrophic. There is no definite hydronephrosis. There are bilateral renal calculi as discussed above. Signed by Tolu Lin MD 07/21/2016 04:43 P
[2016-07-21 15:45] VITALS: BP 112/68
[2016-07-21 19:50] VITALS: BP 127/73
[2016-07-21] MEDS: SERTRALINE 100 MG TAB PO SCH (21:14)
[2016-07-21] MEDS: FAMOTIDINE 20 MG TAB PO SCH (21:14)
[2016-07-21] MEDS: ROSUVASTATIN 10 MG TAB (CRESTOR) PO SCH (21:14)
[2016-07-21] MEDS: EZETIMIBE 10 MG TAB (ZETIA) PO SCH (21:14)
[2016-07-21 23:46] VITALS: BP 113/55
[2016-07-22] MEDS: IPRATROPIUM 0.5MG/ALBUTEROL 2.5MG INH SOL UD 3ML (DUONEB)(J7620) NEB SCH ×7 (01:46→23:47)
[2016-07-22 04:20] VITALS: BP 105/46
[2016-07-22] MEDS: SLF 3 ML SYR IV SCH ×3 (05:58→21:25)
[2016-07-22] MEDS: HEPARIN SOD (PORCINE) 5000 UNITS/ML VIAL SC SCH ×3 (05:58→21:23)
[2016-07-22] MEDS: LEVOTHYROXINE 0.075 MG TAB (75 MCG) PO SCH (05:58)
[2016-07-22 06:30] LABS: CALCIUM LEVEL 8.7 MG/DL (8.8-10.2); CREATININE FOR GFR 2.77 MG/DL (0.55-1.02); GLOMERULAR FILTRATION RATE 18.5 (>45); MAGNESIUM LEVEL 2.3 MG/DL (1.8-2.4); POTASSIUM SERUM 3.8 MEQ/L (3.5-5.1)
[2016-07-22 06:33] LABS: EOS % 0.4 % (0.0-3.0); LARGE UNSTAINED CELL # 0.1 K/mm3 (0.0-0.4); LARGE UNSTAINED CELL % 0.8 % (0.0-4.0); LYMPH # 0.9 K/mm3 (1.5-4.5); LYMPH % 8.9 % (24.0-44.0); MEAN CORPUSCULAR HEMOGLOBIN 27.4 pg (27.0-33.0); MEAN CORPUSCULAR HGB CONC 30.2 g/dl (32.0-36.5); MEAN CORPUSCULAR VOLUME 90.6 fl (80.0-96.0); MONO # 0.4 K/mm3 (0.0-0.8); NEUTROPHILS # 7.5 K/mm3 (1.8-7.7); PLATELET COUNT, AUTOMATED 345 k/mm3 (150-450); RED CELL DISTRIBUTION WIDTH 14.2 % (11.5-14.5); WHITE BLOOD COUNT 8.8 K/mm3 (4.0-10.0)
[2016-07-22 08:00] VITALS: BP 104/65
[2016-07-22] MEDS: HumaLOG INSULIN (NovoLOG) PER UNIT SC SCH ×4 (08:55→21:24)
[2016-07-22] MEDS: predniSONE 20 MG TAB PO SCH (08:56)
[2016-07-22] MEDS: NYSTATIN 100,000 UNITS/GM TOPICAL PWD 15 GM TOP SCH ×2 (09:00→21:25)
[2016-07-22] MEDS: oxyBUTYnin *DITROPAN XL* 5 MG TABCR PO SCH (09:00)
[2016-07-22] MEDS: FERROUS SULFATE 325MG TAB PO SCH (09:00)
[2016-07-22] MEDS: CLOPIDOGREL 75 MG TAB PO SCH (09:00)
[2016-07-22] MEDS: ASPIRIN 81 MG ENTERIC TAB PO SCH (09:00)
[2016-07-22] MEDS: METOPROLOL TART 25 MG TABLET PO SCH (09:00)
[2016-07-22] MEDS ORDERED: BISACODYL 10 MG SUPP PR PRN (11:30)
[2016-07-22 12:30] VITALS: BP 116/58
[2016-07-22] MEDS: MIRALAX *UNIT DOSE* 17GM PACKET PO SCH (12:43)
--- NOTE | 2016-07-22 12:53 | IPNPDOC ---
Subjective Date Seen The patient was seen on 07/22/16. Subjective Chief Complaint/HPI The patient is a 60-year-old female admitted with a reason for visit of Hypoxia. Events since last encounter no complaints this morning. Objective Physical Examination General Exam: Positive: Alert, No Acute Distress Eye Exam: Positive: Conjunctiva & lids normal, EOMI, PERRLA, Negative: Sclera icteric ENT Exam: Positive: Atraumatic, Mucous membr. moist/pink, Pharynx Normal Neck Exam: Positive: Supple, Negative: JVD, thyromegaly Chest Exam: Positive: Diminished, Rales, Wheezing Heart Exam: Positive: Normal S1, Normal S2, Rate Normal, Regular Rhythm, Negative: Murmurs, Rubs Telemetry: Positive: No significant arrhythmia Abdomen Exam: Positive: Normal bowel sounds, Soft, Negative: Hepatospenomegaly, Tenderness Extremity Exam: Positive: Edema Skin Exam: Positive: Nl turgor and temperature, Negative: Breakdown, Rash Assessment /Plan Problems (1) Acute on chronic respiratory failure with hypoxia and hypercapnia Status: Acute Problem Text: Pateint had low pH and high pco2 in her abg on admission showing acute hypercarbic respiratory failure. multifactorial due to copd and chf exacerbation and sedative medication VQ scan low probability for pulmonary embolism. patient also had procedure the day prior to admission and received midazolam and fentanyl which could also have worsened her respiratory failure. will continue with nebulizations, steroids. (2) Acute metabolic encephalopathy Status: Resolved Problem Text: due to hypercarbia (3) COPD exacerbation Status: Acute Problem Text: continue nebs , steroids , CXR with atelectasis vs fibrosis so antibiotic stopped. (4) Acute kidney injury superimposed on CKD Status: Acute Problem Text: Baseline creatinine 1.4 to 1.6 prior to nephrostomy placement on 07/11/16 Now acute worsening of renal function will rule out obstruction will get new renal and bladder US. Possibility of Ischemic ATN is also high as patient was in acute hypoxic and hypercarbic respiratory failure for unknown duration of time. Was very hypoxic on presentation to the other hospital. Also clinically patient looks dry at this point so will give gentle hydration , stop lasix and levofloxacin. has obstructive uropathy with right staghorn calculus and right hydronephrosis. However the right has only 20% overall function. (5) Obstructive uropathy Status: Acute Problem Text: due to horse shoe kidney and staghorn calculi on the right. left as 70% function and right has 20% function. has nephrostomy bag (6) MARY on CPAP Status: Chronic (7) Morbid obesity Status: Chronic (8) Horseshoe kidney Status: Chronic (9) Hypothyroid Status: Chronic Problem Text: continue synthroid (10) Hyperlipidemia Status: Chronic (11) Hypertension Status: Chronic Problem Text: continue metoprolol with hold parameters. (12) CAD (coronary artery disease) Status: Chronic Problem Text: continue metoprolol, statin , asa and plavix. (13) Overactive bladder Status: Chronic Problem Text: oxybutynin (14) Depression Status: Chronic Problem Text: sertraline (15) Diabetes Status: Chronic (16) CHF (congestive heart failure) Status: Chronic Problem Text: continue lasix unknown type at this time will get echo. (17) Staghorn calculus Status: Chronic Problem Text: follows with Dr rizo. Plan/VTE VTE Prophylaxis Ordered?: Yes VS, I&O, 24H, Fishbone Vital Signs/I&O Vital Signs Date Time Temp Pulse Resp B/P Pulse Ox O2 Delivery O2 Flow Rate FiO2 07/22/16 09:00 86 105/46 07/22/16 08:00 Nasal Cannula 2.0 07/22/16 08:00 95.8 20 100 I&O- Last 24 Hours up to 6 AM 07/22/16 06:00 Intake Total 1410 ml Output Total 625 ml Balance 785 ml Laboratory Data 24H LABS Laboratory Tests 2 07/21/16 17:13: Bedside Glucose (Misc Panel) 152H 07/21/16 20:32: Bedside Glucose (Misc Panel) 182H 07/22/16 05:17: Anion Gap 8, White Blood Count 8.8, Red Blood Count 3.35L, Hemoglobin 9.2L, Hematocrit 30.4L, Mean Corpuscular Volume 90.6, Mean Corpuscular Hemoglobin 27.4 , Mean Corpuscular Hemoglobin Concent 30.2L, Red Cell Distribution Width 14.2, Platelet Count 345, Neutrophils (%) (Auto) 85.0H, Lymphocytes (%) (Auto) 8.9L, Monocytes (%) (Auto) 5.0, Eosinophils (%) (Auto) 0.4, Basophils (%) (Auto) 0.0, Neutrophils # (Auto) 7.5, Lymphocytes # (Auto) 0.9L, Monocytes # (Auto) 0.4, Eosinophils # (Auto) 0.0, Basophils # (Auto) 0.0, Blood Urea Nitrogen 56H, Creatinine 2.77H, Sodium Level 142, Potassium Level 3.8, Chloride Level 102, Carbon Dioxide Level 32, Calcium Level 8.7L, Glomerular Filtration Rate 18.5L, Large Unclassified Cells # 0.1, Large Unclassified Cells % 0.8, Magnesium Level 2.3 07/22/16 11:42: Bedside Glucose (Misc Panel) 124H CBC/BMP Laboratory Tests 07/22/16 05:17 Calcium Level 8.7 L, Red Blood Count 3.35 L, Mean Corpuscular Volume 90.6, Mean Corpuscular Hemoglobin 27.4, Mean Corpuscular Hemoglobin Concent 30.2 L, Red Cell Distribution Width 14.2, Neutrophils (%) (Auto) 85.0 H, Lymphocytes (%) ( Auto) 8.9 L, Monocytes (%) (Auto) 5.0, Eosinophils (%) (Auto) 0.4, Basophils (% ) (Auto) 0.0, Neutrophils # (Auto) 7.5, Lymphocytes # (Auto) 0.9 L, Monocytes # (Auto) 0.4, Eosinophils # (Auto) 0.0, Basophils # (Auto) 0.0 Microbiology Microbiology 07/20/16 Urine Culture - Final, Complete STEPHIE OH MD Jul 22, 2016 12:53
[2016-07-22 14:00] VITALS: BP 114/57
[2016-07-22] MEDS: METOPROLOL TART 12.5 MG PER 1/2 TAB PO SCH (21:21)
[2016-07-22] MEDS: FAMOTIDINE 20 MG TAB PO SCH (21:22)
[2016-07-22] MEDS: SERTRALINE 100 MG TAB PO SCH (21:22)
[2016-07-22] MEDS: EZETIMIBE 10 MG TAB (ZETIA) PO SCH (21:23)
[2016-07-22] MEDS: ROSUVASTATIN 10 MG TAB (CRESTOR) PO SCH (21:23)
[2016-07-22 22:00] VITALS: BP 102/60
[2016-07-23] MEDS: IPRATROPIUM 0.5MG/ALBUTEROL 2.5MG INH SOL UD 3ML (DUONEB)(J7620) NEB SCH ×6 (04:00→23:16)
[2016-07-23 05:57] LABS: BASO % 0.2 % (0.0-1.0); EOS % 0.7 % (0.0-3.0); LARGE UNSTAINED CELL # 0.1 K/mm3 (0.0-0.4); LARGE UNSTAINED CELL % 1.4 % (0.0-4.0); LYMPH # 0.8 K/mm3 (1.5-4.5); LYMPH % 10.3 % (24.0-44.0); MEAN CORPUSCULAR HEMOGLOBIN 26.9 pg (27.0-33.0); MEAN CORPUSCULAR HGB CONC 29.9 g/dl (32.0-36.5); MEAN CORPUSCULAR VOLUME 89.9 fl (80.0-96.0); MONO # 0.4 K/mm3 (0.0-0.8); MONO % 5.5 % (0.0-5.0); NEUTROPHILS # 5.9 K/mm3 (1.8-7.7); NEUTROPHILS % 81.9 % (36.0-66.0); PLATELET COUNT, AUTOMATED 338 k/mm3 (150-450); RED CELL DISTRIBUTION WIDTH 14.2 % (11.5-14.5); WHITE BLOOD COUNT 7.2 K/mm3 (4.0-10.0)
[2016-07-23 06:00] VITALS: BP 108/53
[2016-07-23] MEDS: LEVOTHYROXINE 0.075 MG TAB (75 MCG) PO SCH (06:04)
[2016-07-23] MEDS: SLF 3 ML SYR IV SCH ×3 (06:04→21:18)
[2016-07-23] MEDS: HEPARIN SOD (PORCINE) 5000 UNITS/ML VIAL SC SCH ×3 (06:05→21:16)
[2016-07-23 06:13] LABS: CALCIUM LEVEL 8.6 MG/DL (8.8-10.2); CREATININE FOR GFR 2.32 MG/DL (0.55-1.02); GLOMERULAR FILTRATION RATE 22.6 (>45); MAGNESIUM LEVEL 2.2 MG/DL (1.8-2.4); POTASSIUM SERUM 3.8 MEQ/L (3.5-5.1)
[2016-07-23 08:21] LABS: ABG BASE EXCESS 3.8 (-2.0-2.0); ABG HCO3 31.2 MEQ/L (22.0-26.0); ABG PARTIAL PRESSURE O2 120.8 mmHg (75.0-100.0); ABG STANDARD HCO3 27.9 MEQ/L (22.0-26.0); ABG TOTAL CO2 33.1 MEQ/L (23.0-31.0); ABG pH (ARTERIAL) 7.311 UNITS (7.350-7.450)
[2016-07-23 08:23] LABS: ABG PARTIAL PRESSURE CO2 63.2 mmHg (35.0-45.0)
[2016-07-23] MEDS: MIRALAX *UNIT DOSE* 17GM PACKET PO SCH (08:45)
[2016-07-23] MEDS: HumaLOG INSULIN (NovoLOG) PER UNIT SC SCH ×4 (08:45→21:00)
[2016-07-23] MEDS: oxyBUTYnin *DITROPAN XL* 5 MG TABCR PO SCH (08:45)
[2016-07-23] MEDS: FERROUS SULFATE 325MG TAB PO SCH (08:46)
[2016-07-23] MEDS: CLOPIDOGREL 75 MG TAB PO SCH (08:46)
[2016-07-23] MEDS: predniSONE 20 MG TAB PO SCH (08:46)
[2016-07-23] MEDS: ASPIRIN 81 MG ENTERIC TAB PO SCH (08:46)
[2016-07-23] MEDS: NYSTATIN 100,000 UNITS/GM TOPICAL PWD 15 GM TOP SCH ×2 (08:47→21:17)
[2016-07-23] MEDS: METOPROLOL TART 12.5 MG PER 1/2 TAB PO SCH ×2 (08:47→21:17)
[2016-07-23 14:00] VITALS: BP 113/56
--- NOTE | 2016-07-23 18:34 | IPNPDOC ---
Subjective Date Seen The patient was seen on 07/23/16. Subjective Chief Complaint/HPI The patient is a 60-year-old female admitted with a reason for visit of Hypoxia. Events since last encounter No complaints today feeling well. However her BIPAP was malfunctioning so could not use it last night. This am abg showed slightly higher level of pco2 . Some preliminary blood culture results from [facility] were received showed anaerobic bottle positive and also gram stain and smear from the blood showed yeast positive. Here no elevated white count no fever. repeat blood cultures and fungal cultures have been ordered. Objective Physical Examination General Exam: Positive: Alert, No Acute Distress Eye Exam: Positive: Conjunctiva & lids normal, EOMI, PERRLA, Negative: Sclera icteric ENT Exam: Positive: Atraumatic, Mucous membr. moist/pink, Pharynx Normal Neck Exam: Positive: Supple, Negative: JVD, thyromegaly Chest Exam: Positive: Diminished, Rales, Wheezing Heart Exam: Positive: Normal S1, Normal S2, Rate Normal, Regular Rhythm, Negative: Murmurs, Rubs Telemetry: Positive: No significant arrhythmia Abdomen Exam: Positive: Normal bowel sounds, Soft, Negative: Hepatospenomegaly, Tenderness Extremity Exam: Positive: Edema Skin Exam: Positive: Nl turgor and temperature, Negative: Breakdown, Rash Assessment /Plan Problems (1) Acute on chronic respiratory failure with hypoxia and hypercapnia Status: Acute Response to Treatment: Improving Problem Text: Pateint had low pH and high pco2 in her abg on admission showing acute hypercarbic respiratory failure. multifactorial due to copd and chf exacerbation and sedative medication VQ scan low probability for pulmonary embolism. patient also had procedure the day prior to admission and received midazolam and fentanyl which could also have worsened her respiratory failure. will continue with nebulizations, steroids. new blood cultures have been ordered as some preliminary cultures from [facility] were positive. (2) Acute metabolic encephalopathy Status: Resolved Problem Text: due to hypercarbia (3) COPD exacerbation Status: Acute Problem Text: continue nebs , steroids , CXR with atelectasis vs fibrosis so antibiotic stopped. (4) Acute kidney injury superimposed on CKD Status: Acute Problem Text: Baseline creatinine 1.4 to 1.6 prior to nephrostomy placement on 07/11/16 Now acute worsening of renal function will rule out obstruction will get new renal and bladder US. Possibility of Ischemic ATN is also high as patient was in acute hypoxic and hypercarbic respiratory failure for unknown duration of time. Was very hypoxic on presentation to the other hospital. Also clinically patient looks dry at this point so will give gentle hydration , stop lasix and levofloxacin. has obstructive uropathy with right staghorn calculus and right hydronephrosis. However the right has only 20% overall function. (5) Obstructive uropathy Status: Acute Problem Text: due to horse shoe kidney and staghorn calculi on the right. left as 70% function and right has 20% function. has nephrostomy bag (6) MARY on CPAP Status: Chronic (7) Morbid obesity Status: Chronic (8) Horseshoe kidney Status: Chronic (9) Hypothyroid Status: Chronic Problem Text: continue synthroid (10) Hyperlipidemia Status: Chronic (11) Hypertension Status: Chronic Problem Text: continue metoprolol with hold parameters. (12) CAD (coronary artery disease) Status: Chronic Problem Text: continue metoprolol, statin , asa and plavix. (13) Overactive bladder Status: Chronic Problem Text: oxybutynin (14) Depression Status: Chronic Problem Text: sertraline (15) Diabetes Status: Chronic (16) CHF (congestive heart failure) Status: Chronic Problem Text: continue lasix unknown type at this time will get echo. (17) Staghorn calculus Status: Chronic Problem Text: follows with Dr rizo. Plan/VTE VTE Prophylaxis Ordered?: Yes VS, I&O, 24H, Fishbone Vital Signs/I&O Vital Signs Date Time Temp Pulse Resp B/P Pulse Ox O2 Delivery O2 Flow Rate FiO2 07/23/16 14:00 98.5 96 18 113/56 100 Room Air 07/22/16 08:00 2.0 I&O- Last 24 Hours up to 6 AM 07/23/16 06:00 Intake Total 1320 ml Output Total 700 ml Balance 620 ml Laboratory Data 24H LABS Laboratory Tests 2 07/22/16 19:52: Bedside Glucose (Misc Panel) 270H 07/23/16 05:44: Anion Gap 9, White Blood Count 7.2, Red Blood Count 3.34L, Hemoglobin 9.0L, Hematocrit 30.0L, Mean Corpuscular Volume 89.9, Mean Corpuscular Hemoglobin 26.9L, Mean Corpuscular Hemoglobin Concent 29.9L, Red Cell Distribution Width 14.2, Platelet Count 338, Neutrophils (%) (Auto) 81.9H, Lymphocytes (%) (Auto) 10.3L, Monocytes (%) (Auto) 5.5H, Eosinophils (%) (Auto) 0.7, Basophils (%) ( Auto) 0.2, Neutrophils # (Auto) 5.9, Lymphocytes # (Auto) 0.8L, Monocytes # ( Auto) 0.4, Eosinophils # (Auto) 0.0, Basophils # (Auto) 0.0, Blood Urea Nitrogen 54H, Creatinine 2.32H, Sodium Level 144, Potassium Level 3.8, Chloride Level 104, Carbon Dioxide Level 31, Calcium Level 8.6L, Glomerular Filtration Rate 22.6L, Large Unclassified Cells # 0.1, Large Unclassified Cells % 1.4, Magnesium Level 2.2 07/23/16 08:14: Arterial Blood pH 7.311L, Arterial Blood Partial Pressure CO2 63.2*H, Arterial Blood Partial Pressure O2 120.8H, Arterial Blood Total CO2 33.1H, Arterial Blood HCO3 31.2H, Arterial Blood Base Excess 3.8H, Arterial Blood Oxygen Saturation 98.5, Blood Gas Bicarbonate Standard 27.9H 07/23/16 11:32: Bedside Glucose (Misc Panel) 141H 07/23/16 17:21: Bedside Glucose (Misc Panel) 315H CBC/BMP Laboratory Tests 07/23/16 05:44 Calcium Level 8.6 L, Red Blood Count 3.34 L, Mean Corpuscular Volume 89.9, Mean Corpuscular Hemoglobin 26.9 L, Mean Corpuscular Hemoglobin Concent 29.9 L, Red Cell Distribution Width 14.2, Neutrophils (%) (Auto) 81.9 H, Lymphocytes (%) ( Auto) 10.3 L, Monocytes (%) (Auto) 5.5 H, Eosinophils (%) (Auto) 0.7, Basophils (%) (Auto) 0.2, Neutrophils # (Auto) 5.9, Lymphocytes # (Auto) 0.8 L, Monocytes # (Auto) 0.4, Eosinophils # (Auto) 0.0, Basophils # (Auto) 0.0 Microbiology Microbiology 07/23/16 Fungal Smear, Received Pending 07/23/16 Blood Fungal Culture, Received Pending 07/23/16 Blood Culture, Received Pending 07/20/16 Urine Culture - Final, Complete STEPHIE OH MD Jul 23, 2016 18:34
[2016-07-23] MEDS: ROSUVASTATIN 10 MG TAB (CRESTOR) PO SCH (21:16)
[2016-07-23] MEDS: SERTRALINE 100 MG TAB PO SCH (21:17)
[2016-07-23] MEDS: FAMOTIDINE 20 MG TAB PO SCH (21:17)
[2016-07-23] MEDS: EZETIMIBE 10 MG TAB (ZETIA) PO SCH (21:17)
[2016-07-23 22:00] VITALS: BP 131/60
[2016-07-24] MEDS: SLF 3 ML SYR IV SCH (05:29)
[2016-07-24] MEDS: HEPARIN SOD (PORCINE) 5000 UNITS/ML VIAL SC SCH (05:29)
[2016-07-24] MEDS: LEVOTHYROXINE 0.075 MG TAB (75 MCG) PO SCH (05:29)
[2016-07-24 06:00] VITALS: BP 122/51
[2016-07-24 06:34] LABS: BASO % 0.2 % (0.0-1.0); EOS # 0.1 K/mm3 (0.0-0.50); EOS % 1.1 % (0.0-3.0); LARGE UNSTAINED CELL # 0.1 K/mm3 (0.0-0.4); LARGE UNSTAINED CELL % 0.6 % (0.0-4.0); LYMPH # 1.1 K/mm3 (1.5-4.5); LYMPH % 12.6 % (24.0-44.0); MEAN CORPUSCULAR HEMOGLOBIN 26.7 pg (27.0-33.0); MEAN CORPUSCULAR HGB CONC 29.6 g/dl (32.0-36.5); MEAN CORPUSCULAR VOLUME 90.1 fl (80.0-96.0); MONO # 0.6 K/mm3 (0.0-0.8); MONO % 7.6 % (0.0-5.0); NEUTROPHILS # 6.2 K/mm3 (1.8-7.7); NEUTROPHILS % 77.9 % (36.0-66.0); PLATELET COUNT, AUTOMATED 329 k/mm3 (150-450); RED CELL DISTRIBUTION WIDTH 14.4 % (11.5-14.5)
[2016-07-24 06:51] LABS: CALCIUM LEVEL 8.9 MG/DL (8.8-10.2); CREATININE FOR GFR 2.09 MG/DL (0.55-1.02); GLOMERULAR FILTRATION RATE 25.5 (>45); MAGNESIUM LEVEL 2.2 MG/DL (1.8-2.4); POTASSIUM SERUM 3.7 MEQ/L (3.5-5.1)
[2016-07-24] MEDS: IPRATROPIUM 0.5MG/ALBUTEROL 2.5MG INH SOL UD 3ML (DUONEB)(J7620) NEB SCH (07:05)
[2016-07-24] MEDS: HumaLOG INSULIN (NovoLOG) PER UNIT SC SCH (07:46)
[2016-07-24 09:09] LABS: ABG BASE EXCESS 3.9 (-2.0-2.0); ABG HCO3 29.8 MEQ/L (22.0-26.0); ABG STANDARD HCO3 27.9 MEQ/L (22.0-26.0); ABG TOTAL CO2 31.3 MEQ/L (23.0-31.0); ABG pH (ARTERIAL) 7.384 UNITS (7.350-7.450)
[2016-07-24] MEDS: oxyBUTYnin *DITROPAN XL* 5 MG TABCR PO SCH (09:14)
[2016-07-24] MEDS: predniSONE 20 MG TAB PO SCH (09:14)
[2016-07-24] MEDS: FERROUS SULFATE 325MG TAB PO SCH (09:14)
[2016-07-24] MEDS: MIRALAX *UNIT DOSE* 17GM PACKET PO SCH ×2 (09:14→09:15)
[2016-07-24] MEDS: CLOPIDOGREL 75 MG TAB PO SCH (09:14)
[2016-07-24 09:15] VITALS: BP 122/51
[2016-07-24] MEDS: ASPIRIN 81 MG ENTERIC TAB PO SCH (09:15)
[2016-07-24] MEDS: NYSTATIN 100,000 UNITS/GM TOPICAL PWD 15 GM TOP SCH (09:15)
[2016-07-24] MEDS: METOPROLOL TART 12.5 MG PER 1/2 TAB PO SCH (09:15)
[2016-07-24] MEDS ORDERED: NYST10PW TOP (09:52)
[2016-07-24] MEDS ORDERED: IPRASOL4 NEB (09:52)
--- NOTE | 2016-07-25 19:50 | DSES ---
DATE OF ADMISSION: 07/19/2016 DATE OF DISCHARGE: 07/24/2016 PRIMARY CARE PROVIDER: Eva Muñiz PA-C in [place]. DISCHARGE DIAGNOSES: 1. Acute on chronic respiratory failure with hypoxia and hypercapnia, possibly related to fentanyl and midazolam given during an outpatient procedure. 2. Acute metabolic encephalopathy due to carbon dioxide narcosis. 3. Chronic obstructive pulmonary disorder (COPD) exacerbation. 4. Acute kidney injury on chronic kidney disease possibly due to hypoxic acute tubular necrosis (ATN), 5. Obstructive uropathy with staghorn calculi and hydronephrosis on the right. Patient has right nephrostomy tube placed on 07/18/2016. 6. Horseshoe-shaped kidney. 7. Poorly functional right kidney with right kidney only 22% percent function and left kidney with 77% function. 8. Obesity. 9. Obstructive sleep apnea (MARY) on bilevel positive airway pressure (BiPAP) at home. 10. Hypothyroid. 11. Hyperlipidemia. 12. Hypertension. 13. Coronary artery disease. 14. Overactive bladder. 15. Depression. 16. Diabetes. 17. Diastolic congestive heart failure. 18. Mild aortic stenosis. 20. Positive blood cultures for anaerobic bottle and gram stain showing yeast from [facility]. Blood cultures from our hospital pending. DISCHARGE MEDICATIONS: - albuterol ipratropium nebulizer three times a day as needed - nystatin powder 1 dose topically twice a day - aspirin 81 mg daily - calcitriol 0.25 mcg by mouth once a week - clomipramine 25 mg by mouth in the morning, 50 mg at bedtime - clopidogrel 75 mg by mouth daily - doxepin 10 mg by mouth daily - Zetia 10 mg by mouth daily - famotidine 40 mg at bedtime - fenofibrate 67 mg by mouth daily - ferrous sulfate 325 mg by mouth daily - Lasix 20 mg by mouth daily - glimepiride 2 mg by mouth daily - hydroxyzine 25 mg by mouth at bedtime - Synthroid 75 mcg by mouth daily - methenamine 1 gram by mouth twice a day - metoprolol 25 mg by mouth twice a day - oxybutynin 15 mg by mouth daily - potassium chloride 10 mEq at bedtime - Crestor 40 mg by mouth at bedtime - sertraline 150 mg by mouth at bedtime - Januvia 50 mg by mouth daily HOSPITAL COURSE: This is a 60-year-old female who had a right nephrostomy drain placed by interventional radiology (IR) as an outpatient on 07/18/2016 for right sided hydronephrosis and staghorn calculus which the urology service wants to do lithotripsy after nephrostomy drain. Patient was discharged after the procedure, went home and the next morning patient's family checked on her and found her to be very confused, with possible facial droop, so was taken to [facility] to be evaluated for possible stroke. However, there the patient was found to be severely hypoxic with oxygen saturation in the 70s on arrival requiring 100% non-rebreather. Patient received Lasix, Solu-Medrol, DuoNeb and was successfully weaned down to 4 liters nasal cannula. At [place] patient's D-dimer and BNP were both noted to be elevated. Stroke was ruled out in [facility] as her CT head was unremarkable. In view of her recent procedure at our hospital and patient is scheduled to have another followup with urologic procedure, patient was transferred here. On presentation here, patient was found to be in acute on chronic hypercarbic and hypoxic respiratory failure with high CO2 and low pO2. Patient was started on aggressive nebulizers, steroids as the patient was felt to be also having COPD exacerbation. Patient responded well to nebulizers and steroids and gradually her breathing improved and her confusion improved. Her acute respiratory failure was felt to be related to fentanyl and midazolam that she received during the procedure. During the hospitalization her renal function was noted to have worsened. Her usual creatine ranges around 1.4-1.6 which worsened to 3 and it was felt to be related to acute hypoxia and hypoxia related ATN. Patient's Lasix ws held and was given gentle hydration. Patient had a repeat ultrasound done which did not show any obstructive uropathy. Subsequently patient's renal function improved to around 2 which is close to her baseline. At present patient is functioning at her baseline. Vitals are stable. Patients nephrostomy tube is in place and has bag to gravity. Patient is going to be discharged home with nephrostomy tube and bag and patient to followup with urology service within 1 week to reschedule her urologic procedures. We received preliminary report of blood cultures drawn at [facility] which showed anaerobic bottle preliminary positive and also gram stain showed yeast. We do not have any final results, two new blood cultures as well as fungal cultures from the blood. The first set preliminary report is negative. Other reports are still pending. However the patient is afebrile, does not have any white count, so the chance of any overt bacteremia going on is low. I am going to discharge the patient. I have advised the patient that some blood tests are pending, and if they come back positive I would call her and then she may need to be prescribed antibiotics. She was agreeable to the plan. PHYSICAL EXAMINATION: VITAL SIGNS: Temperature 97.7, pulse 86, respiratory rate 18, blood pressure 122/51, pulse oximetry 94% on room air. GENERAL: The patient is awake, alert and oriented times three, sitting up in bed in no acute distress. HEENT: Normocephalic atraumatic. Moist mucous membranes. Anicteric eyes. CHEST: Bilateral poor air entry but symmetrical and no wheezing or rhonchi. CARDIOVASCULAR: S1, S2, regular. No rub, murmur, or gallop. ABDOMEN: Obese, soft, nontender, bowel sounds present. EXTREMITIES: No edema. LABORATORY DATA: WBC 8, hemoglobin 8.9, platelets 329. Sodium 145, potassium 3.74. chloride 105, bicarbonate 36, BUN 47, creatinine 2, glucose 77, calcium 8.9, magnesium 2.2. Blood gas: pH 7.3, PCO2 51, PO2 66. Urine cultures are negative, though urinalysis (UA) showed WBCs too numerous to be calculated and RBCs too numerous to be calculated. Blood cultures and blood fungal cultures are pending. DISPOSITION: The patient was discharged home in stable condition. DISCHARGE INSTRUCTIONS: Patient to followup with primary care provider in 1 week. Patient to followup with urology in 1 week. Regular diet. Activity as tolerated. RADIOLOGY: Lung V/Q scan was low probability for pulmonary embolism. Chest x-ray showed platelike atelectasis versus linear scarring of the mid-lung zone, status post coronary artery stenting right aortic arch.
[2016-07-27] MEDS ORDERED: IPRATROPIUM 0.5MG/ALBUTEROL 2.5MG INH SOL UD 3ML (DUONEB)(J7620) NEB SCH (02:00)
== END 2016-07-24 11:31 | disposition home or self-care (01) | DRG 291 ==
LOC: M PCU 18:18 → M MS5PR 07-22 12:26
PROVIDERS: ADMIT Internal Medicine; ATTEND Internal Medicine Nephrology
DX: I13.0 Hypertensive heart and chronic kidney disease with heart failure and stage 1 through stage 4 chronic kidney disease, or unspecified chronic kidney disease (principal); J96.02 Acute respiratory failure with hypercapnia; J96.01 Acute respiratory failure with hypoxia; G93.41 Metabolic encephalopathy; I50.33 Acute on chronic diastolic (congestive) heart failure; J44.1 Chronic obstructive pulmonary disease with (acute) exacerbation; N17.9 Acute kidney failure, unspecified; Z66 Do not resuscitate; R09.02 Hypoxemia; G47.33 Obstructive sleep apnea (adult) (pediatric); E78.5 Hyperlipidemia, unspecified; I25.10 Atherosclerotic heart disease of native coronary artery without angina pectoris; I35.0 Nonrheumatic aortic (valve) stenosis; F32.9 Major depressive disorder, single episode, unspecified; E11.9 Type 2 diabetes mellitus without complications; Z79.899 Other long term (current) drug therapy; Z79.82 Long term (current) use of aspirin; K21.9 Gastro-esophageal reflux disease without esophagitis; N18.9 Chronic kidney disease, unspecified; Q63.1 Lobulated, fused and horseshoe kidney; I25.2 Old myocardial infarction; Z88.8 Allergy status to other drugs, medicaments and biological substances; Z91.040 Latex allergy status; E66.01 Morbid (severe) obesity due to excess calories; T42.75XA Adverse effect of unspecified antiepileptic and sedative-hypnotic drugs, initial encounter; E03.9 Hypothyroidism, unspecified

== ENCOUNTER 2016-07-20 11:30 | Inpatient (IN) | payer MEDICARE, MEDICAID ==
[~2016-07-20] VITALS: Ht 152.4 cm; Wt 99.8 kg
[~2016-07-20 11:30] MED LIST changes: +CALC1CAP31 PO; +CLOM25CA2 PO; +CLOM50CA3 PO; +DOXE10CA PO; +FENO67CA2 PO; +FERR325T PO; +GLIM2TAB PO; +HYDR25T PO; +LEVO75TA4 PO; +METH1TAB2 PO; +METO25TAB PO; +OXYB15TA PO; +POTA10CA PO; +SERT-138 PO
[2016-07-24] MEDS ORDERED: NYST10PW TOP (09:52)
[2016-07-24] MEDS ORDERED: IPRASOL4 NEB (09:52)
[2016-08-11] VITALS (7 sets, daily range): BP systolic 102–124; BP diastolic 56–61; O2SAT 94
[2016-08-11] MEDS ORDERED: CONRAY-60 60% 50ML VIAL (Q9961) As Ordered ONE (07:56)
[2016-08-11] MEDS: FUROSEMIDE 20 MG TAB PO SCH (09:00)
[2016-08-11] MEDS ORDERED: ROSUVASTATIN 10 MG TAB (CRESTOR) PO SCH (09:00)
[2016-08-11] MEDS ORDERED: LR 1,000 ML IV SCH ×2 (09:00→13:30)
[2016-08-11] MEDS ORDERED: fentaNYL 250 MCG/5 ML INJECTION (J3010) As Ordered ONE ×2 (09:17→11:33)
[2016-08-11] MEDS ORDERED: LIDOCAINE 2% INJ 100 MG/5 ML SDV (FOR ANES.) As Ordered ONE ×2 (09:17→11:33)
[2016-08-11] MEDS ORDERED: dexameTHASONE 4 MG/ML 1ML VIAL (J1100) As Ordered ONE ×2 (09:17→11:33)
[2016-08-11] MEDS ORDERED: ONDANSETRON 4MG/2ML VIAL (J2405) As Ordered ONE ×2 (09:17→11:33)
[2016-08-11] MEDS ORDERED: ROCURONIUM BROMIDE 50 MG/5 ML VIAL As Ordered ONE ×2 (09:17→11:33)
[2016-08-11] MEDS ORDERED: MIDAZOLAM INJ 2 MG/2 ML VIAL (J2250) As Ordered ONE ×3 (09:17→11:37)
[2016-08-11] MEDS ORDERED: PROPOFOL 200 MG/20 ML VIAL As Ordered ONE ×2 (11:33→11:45)
[2016-08-11] MEDS ORDERED: SUCCINYLCHOLINE 100 MG/5 ML SYRINGE (J0330) As Ordered ONE (11:34)
[2016-08-11] MEDS ORDERED: GLYCOPYRROLATE INJ 0.2 MG/ML 2 ML VIAL As Ordered ONE (11:34)
[2016-08-11] MEDS ORDERED: NEOSTIGMINE 1MG/ML 5 ML SYRINGE (J2710) As Ordered ONE (11:34)
[2016-08-11] MEDS ORDERED: PHENYLephrine HCL 500 MCG/5 ML (100MCG/ML) SYRINGE (J2370) As Ordered ONE (11:50)
--- NOTE | 2016-08-11 13:06 | REP ---
FLUOROSCOPIC GUIDANCE FOR PERCUTANEOUS NEPHROLITHOTOMY: 08/11/2016. Clinical history: Renal stone disease. Single image from C-arm fluoroscopy provided to Dr. Rojas of the urology vision. Contrast in the collecting system with filling defects and a percutaneous catheter with contrast extending into the ureter. Fluoroscopy time 2 minutes 43 seconds. Signed by Rudolph Buckner MD 08/11/2016 05:51 P
[2016-08-11] MEDS ORDERED: ONDANSETRON 4MG/2ML VIAL (J2405) IV PRN (13:30)
[2016-08-11] MEDS ORDERED: fentaNYL 100 MCG/2 ML INJECTION (J3010) IV PRN (13:30)
[2016-08-11] MEDS ORDERED: MORPHINE 4 MG/ML 1ML SYRINGE IV PRN ×2 (13:45→16:10)
[2016-08-11] MEDS ORDERED: oxyCODONE 5MG TAB PO PRN (14:00)
[2016-08-11] MEDS ORDERED: IPRATROPIUM 0.5MG/ALBUTEROL 2.5MG INH SOL UD 3ML (DUONEB)(J7620) INH PRN (14:15)
[2016-08-11] MEDS: LEVOTHYROXINE 0.075 MG TAB (75 MCG) PO SCH (16:42)
[2016-08-11] MEDS: KETOROLAC 30 MG/ML VIAL (J1885) IV SCH ×2 (18:09→23:26)
[2016-08-11] MEDS: SITagliptin 50 MG TAB (JANUVIA) PO SCH (18:10)
[2016-08-11] MEDS: KCL 20MEQ IN D5/0.45NS 1000ML 1,000 ML IV SCH (18:10)
[2016-08-11] MEDS: CIPROFLOXACIN 500 MG TAB PO SCH (18:10)
[2016-08-11] MEDS: GLIMEPIRIDE 2 MG TAB PO SCH (18:11)
[2016-08-11] MEDS: ACETAMINOPHEN 650MG ER TAB (TYLENOL ARTHRITIS) PO SCH (20:20)
[2016-08-11] MEDS: METOPROLOL TART 25 MG TABLET PO SCH (20:21)
--- NOTE | 2016-08-11 20:57 | RO ---
DATE OF PROCEDURE: 08/11/2016 PREPROCEDURE DIAGNOSIS: Right renal pelvis kidney stone in a horseshoe kidney, plus right distal ureteral stone. POSTPROCEDURE DIAGNOSIS: Right renal pelvis kidney stone in a horseshoe kidney, plus right distal ureteral stone. FINDINGS: Horseshoe kidney with bilateral kidney stones and a right distal ureteral stone causing flank pain. OPERATIVE PROCEDURE: Right percutaneous nephrolithotripsy, antegrade ureteroscopy right side, laser stone lithotripsy with Holmium, basket extraction of stones, plus antegrade double J stent placement, #7-Ivorian Townsend Cook. SURGEON: Dr. Mic Rojas INGOT WEIGHER: Dale Hernandez, PGY-3 ANESTHESIA: General. COMPLICATIONS: None. ESTIMATED BLOOD LOSS: N/A. HISTORY OF THE PRESENT ILLNESS: A 60-year-old female patient with a history of horseshoe kidney. She has bilateral kidney stones and a right distal ureteral stone about 8 mm in diameter. The kidney stone on the right side are about 2 cm in diameter. She has a right nephrostomy tube placed percutaneously by interventional radiology. She has consented for a right percutaneous nephrolithotripsy. DESCRIPTION OF PROCEDURE: With the patient in prone position under general anesthesia after prepping and draping the area of concern which included the right flank and the right nephrostomy tube, we started by cutting the nephrostomy tube and passing a Sensor guidewire down to the bladder and taking out the nephrostomy tube. We then did an incision about 2 cm in length at the level of the nephrostomy tube and skin and passed a double lumen catheter down into the renal pelvis. We then loaded a second super stiff guidewire down to the bladder and took the double lumen catheter out. We then following the super stiff guidewire passed a balloon dilator and dilated the nephrostomy tract to 32. We then placed an Amplatz sheath on top of the balloon to actually create a nephrostomy tract. We deflated the balloon and took out the balloon and passed a nephroscope into the renal pelvis. The renal pelvis was evaluated with a nephroscope under videoscopic guidance. We found a 2 cm stone in the renal pelvis. With a fiber 1 we actually laser lithotripsied the stone and sucked all the pieces out. We then proceeded to take out the fiber 1 out and passed a flexible ureteroscope under videoscopic guidance. We found a stone about 8 mm in the mid ureter and with a ZeroTip basket we grabbed it and pulled it out of the body of the patient. We then proceeded to pass the ureteroscope down to the ureter to the distal ureter and finding a 1 cm stone. We grabbed the Holmium laser 200 Micron probe and pulverized the stone and pushed all the fragments into the bladder. Once the ureter was totally clean of any type of stones, after running the ureteroscope up and down, we actually took it out and then passed a double J stent, #7-Ivorian Townsend Cook, following the guidewire. Once the stent was in good position, we took the guidewire out. We could see the curl in the bladder and the curl in the kidney. We then proceeded to take the Amplatz sheath out and then passed a [place] tip catheter, #18-Ivorian into the renal pelvis and took the [place] tip catheter out and did a nephrostogram with contrast, 10 mL. We could see no extravasation at that moment in time we affixed the nephrostomy tube to the skin with #0 silk stitch times two. We then placed the nephrostomy to gravity. PLAN: The patient will pass through the recovery with a Crocker draining the bladder and nephrostomy tube to gravity. Once she is tolerating regular diet, ambulating very well and the pain is under control, she will be discharged home. We will do a CT scan tomorrow in the morning. There were no complications during surgery.
[2016-08-11] MEDS ORDERED: DOXEPIN 10 MG CAP PO SCH (21:00)
[2016-08-11] MEDS ORDERED: hydrOXYzine 25 MG TAB PO SCH (21:00)
[2016-08-11] MEDS ORDERED: EZETIMIBE 10 MG TAB (ZETIA) PO SCH (21:00)
[2016-08-11] MEDS ORDERED: SERTRALINE HCL 50 MG TAB PO SCH (21:00)
[2016-08-11] MEDS ORDERED: SERTRALINE 100 MG TAB PO SCH (21:00)
[2016-08-11] MEDS ORDERED: PANTOPRAZOLE 40MG INJ (PROTONIX) (C9113) IV SCH (21:00)
[2016-08-12 02:00] VITALS: BP 127/56
[2016-08-12] MEDS: KCL 20MEQ IN D5/0.45NS 1000ML 1,000 ML IV SCH ×2 (04:11→10:32)
[2016-08-12] MEDS: LEVOTHYROXINE 0.075 MG TAB (75 MCG) PO SCH (05:49)
[2016-08-12] MEDS: ACETAMINOPHEN 650MG ER TAB (TYLENOL ARTHRITIS) PO SCH ×2 (05:49→13:26)
[2016-08-12] MEDS: CIPROFLOXACIN 500 MG TAB PO SCH ×2 (05:49→16:41)
[2016-08-12 06:00] VITALS: BP 126/56
[2016-08-12 09:00] VITALS: BP 102/56
[2016-08-12] MEDS: METOPROLOL TART 25 MG TABLET PO SCH (09:00)
[2016-08-12 10:00] VITALS: BP 99/52
--- NOTE | 2016-08-12 10:13 | REP ---
Clinical: Status post lithotripsy. Comparison: 06/13/2016. Findings: Horseshoe kidney is identified with right-sided nephrostomy and right-sided ureteral stent extending to the bladder. The previously identified large calculi in the right renal moiety are normal and no present and only a single 1 mm calculus is identified (image [id number]). The left renal moiety is unchanged and demonstrates staghorn calculus within the renal pelvis and multiple large nonobstructing calculi in multiple calyces. No significant perinephric stranding or hydroureteronephrosis appreciated. Liver, spleen, pancreas, gallbladder, and bilateral adrenal glands are normal. The enteric system is without obstruction or acute inflammatory process. Normal terminal ileum and appendix identified in the right lower quadrant. Pelvis demonstrates a Crocker catheter and stenting collapsed bladder along with small bladder calculi. Uterus and adnexa are normal for age. No ascites. No free air. No adenopathy. Abdominal aorta demonstrates mild atherosclerotic changes without aneurysm. Musculoskeletal structures demonstrate age-related degenerative changes without focal osseous abnormality. Lung bases demonstrate minimal bibasilar fibroatelectatic changes. Impression: Horseshoe kidney demonstrating right nephrostomy and right ureteral stent along with essentially complete resolution of the right renal calculi and stable calculi within the left kidney. Findings detailed above. Signed by Phillip Garcia MD 08/12/2016 10:04 A
[2016-08-12] MEDS: KETOROLAC 30 MG/ML VIAL (J1885) IV SCH (10:28)
[2016-08-12] MEDS: FUROSEMIDE 20 MG TAB PO SCH (10:31)
[2016-08-12] MEDS: GLIMEPIRIDE 2 MG TAB PO SCH (10:31)
[2016-08-12] MEDS: SITagliptin 50 MG TAB (JANUVIA) PO SCH (10:31)
[2016-08-12 14:00] VITALS: BP 128/63
[2016-08-12] MEDS ORDERED: TRAM50TA2 PO (14:08)
[2016-08-12] MEDS ORDERED: CIPR500T3 PO (14:08)
--- NOTE | 2016-08-12 15:57 | DSES ---
DATE OF ADMISSION: 08/11/2016 DATE OF DISCHARGE: 08/12/2016 ADMISSION DIAGNOSIS: Right renal stones in a horseshoe kidney. DISCHARGE DIAGNOSIS: Right renal stones in a horseshoe kidney. SURGERY PERFORMED: Right percutaneous nephrolithotripsy, plus antegrade ureteroscopy, plus laser stone lithotripsy, plus basket extraction of stones, plus antegrade double J stent placement. ADMISSION SURGEON: Mic Rojas MD DISCHARGE SURGEON: Mic Rojas MD COMPLICATIONS: None. HISTORY OF PRESENT ILLNESS: This is a 61-year-old female patient that actually has a horseshoe kidney and a right nephrostomy tube. She consented for a right percutaneous nephrolithotripsy which was performed on 08/11/2016. She was admitted after this. HOSPITALIZATION COURSE: The patient did very well. By postoperative day #1, she had a CT scan that showed no stones on the right side, a correct double J stent in good position, Crocker catheter in good position, and nephrostomy tube draining clear urine. For this reason, we discontinued the nephrostomy tube and took out the Crocker catheter. She voided very well, tolerated a regular diet, and pain was controlled with oral pain medication. For this reason, she will be going home with the following indications: Ciprofloxacin 500 mg one tablet by mouth twice a day for 10 days. She will have oxycodone 10 mg every 6 hours as needed for pain. She will followup at [facility] in about 1 week to remove the right double J stent. We will then address the left contralateral portion of her horseshoe kidney which is full of stones also. She has agreed on the plan and we will discharge her home today.
== END 2016-08-12 18:19 | disposition home health service (06) | DRG 660 ==
LOC: M OR 08-11 08:47 → M MS5PR 08-11 14:50
PROVIDERS: ADMIT Urology; ATTEND Urology
PROC: 0TC03ZZ Extirpation of Matter from Right Kidney, Percutaneous Approach (ICD-10-PCS; principal; 2016-08-11 10:30)
DX: N20.0 Calculus of kidney (principal); I50.32 Chronic diastolic (congestive) heart failure

== ENCOUNTER → 2016-09-12 | Outpatient (REF) | payer MEDICARE, MEDICAID ==
[~2016-09-12] MED LIST changes: +CIPR500T3 PO; +IPRASOL4 NEB; +NYST10PW TOP; +TRAM50TA2 PO
== END ==
LOC: M LAB REF 16:54
PROVIDERS: ATTEND Nurse Practitioner Women's Health
DX: Z01.818 Encounter for other preprocedural examination (principal); N20.0 Calculus of kidney
CPT/HCPCS: 51702; 87086; G0463

== ENCOUNTER → 2016-10-24 | Outpatient (CLI) | payer MEDICARE, OTHER ==
[~2016-10-24] MED LIST changes: +ASPIRIN 81 MG CHEW TABLET As Ordered ONE; +ISOVUE-300 61% 50ML VIAL (Q9967) As Ordered ONE; +LIDOCAINE 2% MDV 20 ML VIAL As Ordered ONE; +MIDAZOLAM INJ 2 MG/2 ML VIAL (J2250) As Ordered ONE; +SODIUM BICARBONATE 4 % INJ 2.4MEQ 5 ML VIAL (THIS HAS A PRESERVATIVE) As Ordered ONE; +cefTRIAXone SOD 1 GM VIAL (J0696) As Ordered ONE; +fentaNYL 100 MCG/2 ML INJECTION (J3010) As Ordered ONE
[2016-10-24 13:55] VITALS: BP 127/71
--- NOTE | 2016-10-24 16:44 | REPKIM ---
CLINICAL HISTORY: Horseshoe kidney, bilateral staghorn calculi, s/p successful PCNL on the right in July of 2016. The referring urology service has requested a nephroureteral catheter (stent) placement for preop percutaneous nephrolithotripsy urology procedure on the left. PROCEDURE PERFORMED: 1. Ultrasound Left Kidney 2. Percutaneous antegrade Nephrostogram 3. Percutaneous Nephroureteral catheter (stent) placement INTERVENTIONALIST: Francisca Ricketts MD CONSENT: The risks, benefits and alternatives to the procedure were explained to the patient and informed written consent was obtained. SEDATION: Sedation and analgesia was provided by the Anesthesiology Dept. MEDICATIONS: Rocephin 1gm IV, Local Lidocaine CONTRAST: 10 mL Isovue 300 EBL: less than 10 mL FLUORO TIME: 3.0 minutes DEVICE USED: 8.5F 45 cm pigtail; Nephroureteral catheter (stent) Lot #[id number] PROCEDURE/FINDINGS: The patient was brought to the interventional radiology suite and placed in the prone position, left flank prepped and draped in the usual sterile fashion. Time out procedure was performed. Ultrasound of the kidney showed staghorn calculi. Using ultrasound and fluoroscopy guidance, a 21-gauge Accustick needle was advanced into the targeted posterior upper pole calyx of the kidney ( horseshoe kidney with fused lower pole), after infiltration of the skin and deep tissues with local anesthetic. Contrast was injected and images were obtained. This showed mild dilation of the pelvicalyceal system with staghorn calculi. This also showed antegrade flow of contrast into the urinary bladder. Using a hydrophilic guidewire, the catheter-wire combination was advanced around the calyceal/renal pelvis stones into the proximal ureter then into the urinary bladder. The wire was then exchanged for a stiff wire. An 8.5-Yi 45- cm length nephroureteral catheter (stent) was introduced over the guidewire. The guidewire was withdrawn and the distal end of the loop curled in the bladder. The nephroureteral catheter was then flushed and capped. The patient tolerated the procedure well with no immediate complications. This procedure was performed using ultrasound and fluoroscopy. Dr. Ricketts was present. IMPRESSION: 1. Horseshoe kidney with staghorn calculi on the left. 2. Successful 8.5F nephroureteral catheter (stent) placement via the posterior upper pole calyx on the left as discussed above. This access will be used for subsequent percutaneous nephrolithotripsy urology procedure. cc: JOSE RAFAEL Louie MD MTDD
== END | disposition home or self-care (01) ==
LOC: M IRPRO 10:03
PROVIDERS: ATTEND Nurse Practitioner Women's Health
DX: N20.0 Calculus of kidney (principal); Q63.1 Lobulated, fused and horseshoe kidney
CPT/HCPCS: 50433; C1729; C1769; C1887; C1894; J0696; J2250; J3010; Q9967

== ENCOUNTER → 2017-02-13 | Outpatient (REF) | payer MEDICARE, MEDICAID ==
[~2017-02-13] MED LIST changes: +ASPI-101 PO; -ASPI81TA11 PO; +ASPI81TA85 PO; -ASPIRIN 81 MG CHEW TABLET As Ordered ONE; +FERR1TAB8 PO; -FERR325T PO; +HYDR-3363 PO; -HYDR25T PO; -ISOVUE-300 61% 50ML VIAL (Q9967) As Ordered ONE; -LIDOCAINE 2% MDV 20 ML VIAL As Ordered ONE; +METO25TA4 PO; -METO25TAB PO; -MIDAZOLAM INJ 2 MG/2 ML VIAL (J2250) As Ordered ONE; +PROAAER10 INH; -SODIUM BICARBONATE 4 % INJ 2.4MEQ 5 ML VIAL (THIS HAS A PRESERVATIVE) As Ordered ONE; +SYMB16INH INH; -VESI10TA PO; +VESI10TA2 PO; -ZETI10TA2 PO; +ZETI10TA30 PO; -cefTRIAXone SOD 1 GM VIAL (J0696) As Ordered ONE; -fentaNYL 100 MCG/2 ML INJECTION (J3010) As Ordered ONE
[2017-02-13 20:54] LABS: ALBUMIN 3.4 GM/DL (3.2-5.2); ALBUMIN/GLOBULIN RATIO 0.97 (1.00-1.93); BILIRUBIN,TOTAL 0.3 MG/DL (0.2-1.0); CALCIUM LEVEL 9.5 MG/DL (8.8-10.2); CREATININE FOR GFR 1.62 MG/DL (0.55-1.02); GLOMERULAR FILTRATION RATE 34.2 (>45); POTASSIUM SERUM 4.3 MEQ/L (3.5-5.1); TOTAL PROTEIN 6.9 GM/DL (6.4-8.2)
== END ==
LOC: M SFHCADAM 16:07
PROVIDERS: ATTEND Family Medicine
DX: E11.69 Type 2 diabetes mellitus with other specified complication (principal)

== ENCOUNTER → 2017-05-29 | Outpatient (REF) | payer MEDICARE, MEDICAID ==
[2017-05-29 13:07] LABS: ESTIMATED AVERAGE GLUCOSE 186 MG/DL (60-110); HEMOGLOBIN A1c 8.1 %
== END ==
LOC: M SFHCADAM 12:26
DX: E11.69 Type 2 diabetes mellitus with other specified complication (principal)
CPT/HCPCS: 83036

== ENCOUNTER → 2017-06-05 | Outpatient (REF) | payer MEDICARE, MEDICAID ==
[2017-06-05 13:26] LABS: APPEARANCE, URINE CLOUDY (CLEAR); BACTERIA, URINE AUTO 1+ (NEGATIVE); BILIRUBIN, URINE AUTO NEGATIVE (NEGATIVE); BLOOD, URINE BLOOD 3+ (NEGATIVE); COLOR, URINE RED (YELLOW); GLUCOSE, URINE (UA) AUTO 2+ mg/dL (NEGATIVE); KETONE, URINE AUTO NEGATIVE (NEGATIVE); LEUKOCYTE ESTERASE, URINE AUTO 2+ (NEGATIVE); NITRITE, URINE AUTO NEGATIVE (NEGATIVE); PROTEIN, URINE AUTO 2+ mg/dL (NEGATIVE); RBC, URINE AUTO TNTC /HPF (0-3); SPECIFIC GRAVITY URINE AUTO 1.015 (1.002-1.035); SQUAMOUS EPITHELIAL CELL UR AU 0 /HPF (0-6); UROBILINOGEN, URINE AUTO 0.2 mg/dL (0.0-2.0); WBC, URINE AUTO TNTC /HPF (0-3); YEAST LIKE CELL URINE AUTO MODERATE
[2017-06-05 20:53] LABS: BASO % 0.5 % (0.0-1.0); EOS # 0.2 10^3/uL (0.0-0.50); EOS % 2.5 % (0.0-3.0); HEMOGLOBIN 10.9 g/dl (12.0-16.0); IMMATURE GRANULOCYTE % 0.4 % (0-0); LYMPH # 1.5 10^3/uL (1.5-4.5); LYMPH % 19.3 % (24.0-44.0); MEAN CORPUSCULAR HEMOGLOBIN 26.7 pg (27.0-33.0); MEAN CORPUSCULAR HGB CONC 29.5 g/dl (32.0-36.5); MEAN CORPUSCULAR VOLUME 90.7 fl (80.0-96.0); MONO # 0.6 10^3/uL (0.0-0.8); NEUTROPHILS # 5.6 10^3/uL (1.8-7.7); NEUTROPHILS % 70.3 % (36.0-66.0); PLATELET COUNT, AUTOMATED 253 10^3/uL (150-450); RED BLOOD COUNT 4.08 10^6/uL (4.00-5.40); RED CELL DISTRIBUTION WIDTH 13.6 % (11.5-14.5); WHITE BLOOD COUNT 7.9 10^3/uL (4.0-10.0)
== END ==
LOC: M SFHCADAM 11:37
DX: R31.9 Hematuria, unspecified (principal)
CPT/HCPCS: 85025

== ENCOUNTER 2017-07-27 16:47 | Emergency (ER) | payer MEDICARE, MEDICAID ==
[2017-07-27] MEDS: NS 1,000 ML IV (19:30)
[2017-07-27 20:05] LABS: BASO % 0.4 % (0.0-1.0); EOS # 0.1 10^3/uL (0.0-0.50); EOS % 1.5 % (0.0-3.0); HEMATOCRIT 37.8 % (36.0-47.0); HEMOGLOBIN 10.3 g/dl (12.0-16.0); IMMATURE GRANULOCYTE % 0.5 % (0-3.0); LYMPH # 0.7 10^3/uL (1.5-4.5); MEAN CORPUSCULAR HEMOGLOBIN 23.7 pg (27.0-33.0); MEAN CORPUSCULAR HGB CONC 27.2 g/dl (32.0-36.5); MEAN CORPUSCULAR VOLUME 87.1 fl (80.0-96.0); MONO # 0.5 10^3/uL (0.0-0.8); MONO % 6.6 % (0.0-5.0); PLATELET COUNT, AUTOMATED 266 10^3/uL (150-450); RED BLOOD COUNT 4.34 10^6/uL (4.00-5.40); RED CELL DISTRIBUTION WIDTH 14.3 % (11.5-14.5); WHITE BLOOD COUNT 7.4 10^3/uL (4.0-10.0)
[2017-07-27 20:08] LABS: ANION GAP 5 MEQ/L (8-16); BLOOD UREA NITROGEN 21 MG/DL (7-18); CARBON DIOXIDE LEVEL 40 MEQ/L (21-32); CHLORIDE LEVEL 98 MEQ/L (98-107); CPK CREATINE PHOSPHOKINASE 45 U/L (26-192); CREATININE FOR GFR 1.23 MG/DL (0.55-1.30); FREE T4 0.89 NG/DL (0.76-1.46); GLOMERULAR FILTRATION RATE 46.9 (>45); GLUCOSE, FASTING 113 MG/DL (70-100); SODIUM LEVEL 143 MEQ/L (136-145); TROPONIN I < 0.02 NG/ML (< 0.10)
[2017-07-27 20:13] LABS: CK-MB VALUE MASS 2.1 NG/ML (0.0-3.6); MB/CK RELATIVE INDEX 4.66 (< OR =4)
[2017-07-27 20:23] LABS: KETONE, URINE AUTO RFX TRACE mg/dL (NEGATIVE); MUCUS, URINE RFX SMALL (NEGATIVE); NITRITE, URINE AUTO RFX NEGATIVE (NEGATIVE); RBC, URINE AUTO RFX 48 /HPF (0-3); SPECIFIC GRAVITY UR AUTO RFX 1.015 (1.002-1.035); SQUAM EPITHELIAL CELL UR AURFX 1 /HPF (0-6); YEAST LIKE CELL URINE AUTO RFX SMALL
[2017-07-27 20:40] LABS: LEUKOCYTE ESTERASE UR AUTO RFX 3+ (NEGATIVE); WBC, URINE AUTO RFX TNTC /HPF (0-3)
[2017-07-27] MEDS: CIPROFLOXACIN 500 MG TAB PO (22:15)
== END 2017-07-27 22:50 | disposition home or self-care (01) ==
LOC: M ED 16:47
DX: N39.0 Urinary tract infection, site not specified (principal); G47.00 Insomnia, unspecified; I45.19 Other right bundle-branch block; I25.10 Atherosclerotic heart disease of native coronary artery without angina pectoris; E11.9 Type 2 diabetes mellitus without complications; I10 Essential (primary) hypertension; J44.9 Chronic obstructive pulmonary disease, unspecified; E03.9 Hypothyroidism, unspecified; Z87.891 Personal history of nicotine dependence; Z79.84 Long term (current) use of oral hypoglycemic drugs; Z79.899 Other long term (current) drug therapy; Z88.5 Allergy status to narcotic agent; Z88.8 Allergy status to other drugs, medicaments and biological substances; Z91.040 Latex allergy status; Z91.89 Other specified personal risk factors, not elsewhere classified
CPT/HCPCS: 71046

== ENCOUNTER 2017-07-28 11:40 | Emergency (ER) | payer MEDICARE, MEDICAID | END 2017-07-28 15:47 | disposition home or self-care (01) | LOC: M ED 11:40 | DX: J44.9 Chronic obstructive pulmonary disease, unspecified (principal); Z91.19 Patient's noncompliance with other medical treatment and regimen; E11.9 Type 2 diabetes mellitus without complications; I10 Essential (primary) hypertension; I25.10 Atherosclerotic heart disease of native coronary artery without angina pectoris; G47.33 Obstructive sleep apnea (adult) (pediatric); Z79.899 Other long term (current) drug therapy; Z79.890 Hormone replacement therapy; Z88.5 Allergy status to narcotic agent; Z88.8 Allergy status to other drugs, medicaments and biological substances; Z91.040 Latex allergy status; Z91.048 Other nonmedicinal substance allergy status; Z87.891 Personal history of nicotine dependence | CPT/HCPCS: 99284 ==

== ENCOUNTER → 2017-08-10 | Outpatient (REF) | payer MEDICARE, MEDICAID | LOC: M LAB REF 17:02 | DX: N39.0 Urinary tract infection, site not specified (principal) ==

== ENCOUNTER 2017-11-21 12:07 | Emergency (ER) | payer MEDICARE, MEDICAID, BC, OTHER | END 2017-11-21 16:16 | disposition home or self-care (01) | LOC: M ED 12:07 | DX: S10.93XA Contusion of unspecified part of neck, initial encounter (principal); S20.229A Contusion of unspecified back wall of thorax, initial encounter; W06.XXXA Fall from bed, initial encounter; Y92.122 Bedroom in nursing home as the place of occurrence of the external cause; I25.10 Atherosclerotic heart disease of native coronary artery without angina pectoris; I11.9 Hypertensive heart disease without heart failure; J45.909 Unspecified asthma, uncomplicated; E78.9 Disorder of lipoprotein metabolism, unspecified; E07.9 Disorder of thyroid, unspecified; N18.9 Chronic kidney disease, unspecified; G47.33 Obstructive sleep apnea (adult) (pediatric); F32.9 Major depressive disorder, single episode, unspecified; N39.3 Stress incontinence (female) (male); I73.9 Peripheral vascular disease, unspecified; G45.8 Other transient cerebral ischemic attacks and related syndromes; Z88.5 Allergy status to narcotic agent; Z91.048 Other nonmedicinal substance allergy status; Z88.8 Allergy status to other drugs, medicaments and biological substances; Z79.899 Other long term (current) drug therapy; Z79.02 Long term (current) use of antithrombotics/antiplatelets; Z79.51 Long term (current) use of inhaled steroids | CPT/HCPCS: 71046 ==

== ENCOUNTER → 2018-01-24 | Outpatient (CLI) | payer MEDICARE ==
[2018-01-25 10:56] LABS: BASO % 0.4 % (0.0-1.0); EOS # 0.2 10^3/uL (0.0-0.50); EOS % 1.4 % (0.0-3.0); HEMATOCRIT 35.1 % (36.0-47.0); HEMOGLOBIN 9.2 g/dl (12.0-15.5); IMMATURE GRANULOCYTE % 0.5 % (0-3.0); LYMPH # 1.2 10^3/uL (1.5-4.5); LYMPH % 10.7 % (24.0-44.0); MEAN CORPUSCULAR HGB CONC 26.2 g/dl (32.0-36.5); MEAN CORPUSCULAR VOLUME 76.3 fl (80.0-96.0); MONO # 0.6 10^3/uL (0.0-0.8); MONO % 5.7 % (0.0-5.0); NEUTROPHILS # 8.8 10^3/uL (1.8-7.7); NEUTROPHILS % 81.3 % (36.0-66.0); PLATELET COUNT, AUTOMATED 367 10^3/uL (150-450); WHITE BLOOD COUNT 10.8 10^3/uL (4.0-10.0)
[2018-01-25 11:26] LABS: ESTIMATED AVERAGE GLUCOSE 209 MG/DL (60-110); HEMOGLOBIN A1c 8.9 %
[2018-01-25 12:17] LABS: ALBUMIN 3.3 GM/DL (3.2-5.2); ALBUMIN/GLOBULIN RATIO 0.85 (1.00-1.93); ALKALINE PHOSPHATASE 98 U/L (45-117); ALT/SGPT 16 U/L (12-78); ANION GAP 5 MEQ/L (8-16); AST/SGOT 14 U/L (7-37); BILIRUBIN,TOTAL 0.3 MG/DL (0.2-1.0); BLOOD UREA NITROGEN 32 MG/DL (7-18); CALCIUM LEVEL 8.8 MG/DL (8.8-10.2); CARBON DIOXIDE LEVEL 37 MEQ/L (21-32); CHLORIDE LEVEL 97 MEQ/L (98-107); CHOLESTEROL LEVEL 206 MG/DL (<200); CHOLESTEROL RISK RATIO 5.885 (<5); CREATININE FOR GFR 1.74 MG/DL (0.55-1.30); FREE T4 0.99 NG/DL (0.76-1.46); GLOMERULAR FILTRATION RATE 31.4 (>45); GLUCOSE, FASTING 200 MG/DL (70-100); HDL CHOLESTEROL 35 MG/DL (>40); LDL CHOLESTEROL 149 MG/DL (<100); NON-HDL-C 171 MG/DL; POTASSIUM SERUM 3.8 MEQ/L (3.5-5.1); SODIUM LEVEL 139 MEQ/L (136-145); TOTAL PROTEIN 7.2 GM/DL (6.4-8.2); TRIGLYCERIDES LEVEL 111 MG/DL (<150)
== END ==
LOC: M SMT 13:16
DX: Q63.1 Lobulated, fused and horseshoe kidney (principal); E66.9 Obesity, unspecified; E11.69 Type 2 diabetes mellitus with other specified complication; E03.9 Hypothyroidism, unspecified
CPT/HCPCS: 84443

== ENCOUNTER 2018-04-29 18:27 | Emergency (ER) | payer MEDICARE, MEDICAID ==
[2018-04-29] MEDS: IPRATROPIUM 0.5MG/ALBUTEROL 2.5MG INH SOL UD 3ML (DUONEB)(J7620) NEB (19:23)
[2018-04-29 19:46] LABS: ABG BASE EXCESS 14.5 (-2.0-2.0); ABG HCO3 42.5 MEQ/L (22.0-26.0); ABG O2 SATURATION 92.3 % (95.0-99.0); ABG PARTIAL PRESSURE O2 62.2 mmHg (75.0-100.0); ABG STANDARD HCO3 38.1 MEQ/L (22.0-26.0); ABG TOTAL CO2 44.8 MEQ/L (23.0-31.0); ABG pH (ARTERIAL) 7.367 UNITS (7.350-7.450)
[2018-04-29 19:47] LABS: ABG PARTIAL PRESSURE CO2 75.7 mmHg (35.0-45.0)
[2018-04-29 19:54] LABS: BASO % 0.4 % (0.0-1.0); EOS # 0.2 10^3/uL (0.0-0.50); EOS % 2.1 % (0.0-3.0); HEMATOCRIT 34.4 % (36.0-47.0); HEMOGLOBIN 9.1 g/dl (12.0-15.5); IMMATURE GRANULOCYTE % 0.7 % (0-3.0); LYMPH # 0.8 10^3/uL (1.5-4.5); LYMPH % 11.4 % (24.0-44.0); MEAN CORPUSCULAR HEMOGLOBIN 20.5 pg (27.0-33.0); MEAN CORPUSCULAR HGB CONC 26.5 g/dl (32.0-36.5); MEAN CORPUSCULAR VOLUME 77.5 fl (80.0-96.0); MONO # 0.5 10^3/uL (0.0-0.8); MONO % 7.3 % (0.0-5.0); NEUTROPHILS # 5.7 10^3/uL (1.8-7.7); NEUTROPHILS % 78.1 % (36.0-66.0); PLATELET COUNT, AUTOMATED 204 10^3/uL (150-450); RED BLOOD COUNT 4.44 10^6/uL (4.00-5.40); RED CELL DISTRIBUTION WIDTH 19.6 % (11.5-14.5); WHITE BLOOD COUNT 7.3 10^3/uL (4.0-10.0)
[2018-04-29] MEDS: FUROSEMIDE 40 MG/4 ML VIAL (J1940) IV (19:56)
[2018-04-29 20:21] LABS: ANION GAP 3 MEQ/L (8-16); BLOOD UREA NITROGEN 20 MG/DL (7-18); CALCIUM LEVEL 8.3 MG/DL (8.8-10.2); CARBON DIOXIDE LEVEL 42 MEQ/L (21-32); CHLORIDE LEVEL 97 MEQ/L (98-107); CPK CREATINE PHOSPHOKINASE 53 U/L (26-192); CREATININE FOR GFR 1.49 MG/DL (0.55-1.30); GLOMERULAR FILTRATION RATE 37.5 (>45); GLUCOSE, FASTING 53 MG/DL (70-100); MB/CK RELATIVE INDEX 1.89 (< OR =4); POTASSIUM SERUM 4.2 MEQ/L (3.5-5.1); SODIUM LEVEL 142 MEQ/L (136-145); TROPONIN I < 0.02 NG/ML (< 0.10)
[2018-04-29] MEDS ORDERED: DEXTROSE 50% 50 ML SYRINGE IV (21:13)
[2018-04-29 22:04] LABS: BEDSIDE GLUCOSE 138 MG/DL (80-115)
== END 2018-04-29 22:44 | disposition home or self-care (01) ==
LOC: M ED 22:44
DX: J44.1 Chronic obstructive pulmonary disease with (acute) exacerbation (principal); I50.1 Left ventricular failure, unspecified; I11.0 Hypertensive heart disease with heart failure; I25.10 Atherosclerotic heart disease of native coronary artery without angina pectoris; E07.9 Disorder of thyroid, unspecified; Z99.81 Dependence on supplemental oxygen; Z79.899 Other long term (current) drug therapy; Z79.890 Hormone replacement therapy; Z88.5 Allergy status to narcotic agent; Z88.8 Allergy status to other drugs, medicaments and biological substances; Z91.040 Latex allergy status; Z91.048 Other nonmedicinal substance allergy status; Z87.891 Personal history of nicotine dependence
CPT/HCPCS: J1940

== ENCOUNTER → 2018-05-07 | Outpatient (CLI) | payer MEDICARE, MEDICAID ==
[~2018-05-07] MED LIST changes: -ASPI-101 PO; +ASPI-225 PO; +CIPR-249 PO; +EZET10TA PO; +GLIM2TA PO; +GLIP5TAB8 PO; +IPRA0.00 INH; +IPRA0.00 NEB; -IPRASOL4 NEB; +KLOR10TA76 PO; +LEVA250T13 PO; +METH-855 PO; -METH1TAB2 PO; +METO1TAB87 PO; +OXYB10TA PO; -POTA10CA PO; +ROCA0.25 PO; +ZOLO100T PO
--- NOTE | 2018-05-07 13:04 | REP ---
Clinical: Cough and dyspnea. Technique: PA and lateral. Comparison: 04/29/2018, 11/21/2017 . Findings: Mediastinum and cardiac silhouette appear relatively stable with suspected right aortic arch and cardiomegaly again appreciated. The lung alexander demonstrate diffuse chronic interstitial changes. Superimposed scattered basilar atelectasis and subtle infiltrates are suggested. Lateral view suggest the possibility of small pleural effusion. No pneumothorax. Skeletal structures intact. Impression: The chronic stable changes including cardiomegaly. Superimposed basilar atelectasis and subtle infiltrates are suspected. Possible small pleural effusion. Electronically Signed by Phillip Garcia MD 05/07/2018 12:56 P
== END ==
LOC: M RAD 12:19
PROVIDERS: ATTEND Family Medicine
DX: R91.8 Other nonspecific abnormal finding of lung field (principal); R06.00 Dyspnea, unspecified; R05 Cough

== ENCOUNTER → 2018-05-23 | Outpatient (REF) | payer MEDICARE, MEDICAID ==
[2018-05-23 12:20] LABS: BASO % 0.4 % (0.0-1.0); EOS # 0.2 10^3/uL (0.0-0.50); EOS % 1.9 % (0.0-3.0); HEMATOCRIT 38.4 % (36.0-47.0); HEMOGLOBIN 9.9 g/dl (12.0-15.5); LYMPH % 12.5 % (24.0-44.0); MEAN CORPUSCULAR HEMOGLOBIN 20.7 pg (27.0-33.0); MEAN CORPUSCULAR HGB CONC 25.8 g/dl (32.0-36.5); MEAN CORPUSCULAR VOLUME 80.3 fl (80.0-96.0); MONO # 0.5 10^3/uL (0.0-0.8); MONO % 5.7 % (0.0-5.0); NEUTROPHILS # 6.2 10^3/uL (1.8-7.7); NEUTROPHILS % 78.9 % (36.0-66.0); PLATELET COUNT, AUTOMATED 179 10^3/uL (150-450); RED BLOOD COUNT 4.78 10^6/uL (4.00-5.40); WHITE BLOOD COUNT 7.8 10^3/uL (4.0-10.0)
[2018-05-23 12:58] LABS: ALBUMIN 2.9 GM/DL (3.2-5.2); BILIRUBIN,TOTAL 0.3 MG/DL (0.2-1.0); CALCIUM LEVEL 8.8 MG/DL (8.8-10.2); CREATININE FOR GFR 1.45 MG/DL (0.55-1.30); GLOMERULAR FILTRATION RATE 38.7 (>45); POTASSIUM SERUM 4.3 MEQ/L (3.5-5.1); TOTAL PROTEIN 6.1 GM/DL (6.4-8.2)
[2018-05-23 14:03] LABS: HEMOGLOBIN A1c 6.5 %
== END ==
PROVIDERS: ATTEND Family Medicine
DX: E11.9 Type 2 diabetes mellitus without complications (principal)

== ENCOUNTER 2018-05-26 20:50 | Inpatient (IN) | payer MEDICARE, MEDICAID ==
[~2018-05-26] VITALS: Ht 152.4 cm; Wt 93.6 kg
[2018-05-26] MEDS ORDERED: ALBUTEROL SULFATE 2.5 MG/0.5 ML INH NEB SOLN NEB ONE ×2 (21:15→22:45)
[2018-05-26] MEDS ORDERED: LANTINJ4 SC (21:32)
[2018-05-26] MEDS ORDERED: LOPE2CA PO (21:32)
[2018-05-26] MEDS ORDERED: SENN8.6T28 PO (21:32)
[2018-05-26] MEDS ORDERED: DIPH25CA PO (21:32)
[2018-05-26 21:42] LABS: HEMATOCRIT 39.5 % (36.0-47.0); HEMOGLOBIN 9.8 g/dl (12.0-15.5); MEAN CORPUSCULAR HEMOGLOBIN 20.5 pg (27.0-33.0); MEAN CORPUSCULAR HGB CONC 24.8 g/dl (32.0-36.5); MEAN CORPUSCULAR VOLUME 82.5 fl (80.0-96.0); PLATELET COUNT, AUTOMATED 233 10^3/uL (150-450); RED BLOOD COUNT 4.79 10^6/uL (4.00-5.40); WHITE BLOOD COUNT 9.3 10^3/uL (4.0-10.0)
[2018-05-26] MEDS ORDERED: TRAD5TAB PO (21:44)
[2018-05-26] MEDS ORDERED: VITA50005 PO (21:44)
[2018-05-26] MEDS ORDERED: ACET1TAB55 PO (21:44)
[2018-05-26] MEDS ORDERED: SPIR12.9 INH (21:44)
[2018-05-26] MEDS ORDERED: BREO1INH PO (21:46)
[2018-05-26] MEDS ORDERED: ATOR80TA59 PO (21:58)
[2018-05-26] MEDS ORDERED: ZETI10TA30 PO (21:58)
[2018-05-26 22:14] LABS: CALCIUM LEVEL 8.7 MG/DL (8.8-10.2); CREATININE FOR GFR 1.42 MG/DL (0.55-1.30); GLOMERULAR FILTRATION RATE 39.6 (>45); POTASSIUM SERUM 4.9 MEQ/L (3.5-5.1)
[2018-05-26 22:38] LABS: ABG BASE EXCESS 22.1 (-2.0-2.0); ABG HCO3 55.8 MEQ/L (22.0-26.0); ABG PARTIAL PRESSURE O2 145.6 mmHg (75.0-100.0); ABG STANDARD HCO3 46.7 MEQ/L (22.0-26.0); ABG TOTAL CO2 60.2 MEQ/L (23.0-31.0)
[2018-05-26 22:39] LABS: ABG PARTIAL PRESSURE CO2 144.6 mmHg (35.0-45.0); ABG pH (ARTERIAL) 7.204 UNITS (7.350-7.450)
[2018-05-26] MEDS ORDERED: IPRATROPIUM 0.5MG/ALBUTEROL 2.5MG INH SOL UD 3ML (DUONEB)(J7620) NEB ONE (22:45)
[2018-05-26 23:30] LABS: ABG BASE EXCESS 21.5 (-2.0-2.0); ABG HCO3 54.7 MEQ/L (22.0-26.0); ABG O2 SATURATION 93.8 % (95.0-99.0); ABG PARTIAL PRESSURE O2 73.4 mmHg (75.0-100.0); ABG STANDARD HCO3 45.8 MEQ/L (22.0-26.0)
[2018-05-26 23:35] LABS: ABG PARTIAL PRESSURE CO2 140.2 mmHg (35.0-45.0); ABG pH (ARTERIAL) 7.209 UNITS (7.350-7.450)
[2018-05-27] VITALS (13 sets, daily range): BP systolic 79–125; BP diastolic 50–60; O2SAT 94
[2018-05-27] MEDS ORDERED: HumaLOG INSULIN (NovoLOG) PER UNIT SC SCH
[2018-05-27] MEDS ORDERED: ACETAMINOPHEN 325 MG TAB PO PRN (00:30)
[2018-05-27] MEDS ORDERED: diphenhydrAMINE 25 MG CAP PO PRN (00:30)
[2018-05-27] MEDS ORDERED: IPRATROPIUM 0.5MG/ALBUTEROL 2.5MG INH SOL UD 3ML (DUONEB)(J7620) NEB PRN (00:30)
--- NOTE | 2018-05-27 01:11 | HPEPDOC ---
[facility] [place] Medical History & Physical Date of Admission May 26, 2018 Other Provider Dictating/admitting: Milagros Lombardo M.D. Attending Physician: Roman Kim MD History and Physical CHIEF COMPLAINT: Shortness of breath a couple of days. HISTORY OF PRESENT ILLNESS: Patient is a 62-year-old woman with medical history significant for PAD supple, trachea and still syndrome. Right-sided aortic at hyperlipidemia, hypothyroidism, stress incontinence, depression, history of horseshoe kidney, CHF, diastolic dysfunction, asthma, obesity, COPD, diabetes. According to her, for a couple of days now, she had been short of breath. Of note, it is reported that she is usually noncompliant with her BiPAP at home. Her shortness of breath unresolving after a couple of respiratory treatments at home, hence her seeking further medical evaluation and treatment. She denies any fever or chills. No associated cough, no chest pain, no palpitations, no dizziness, no loss of consciousness. She also denies any change in her urinary or bowel habits. No recent sick contacts. No recent long distance travel. Marcie chen was evaluated in the emergency room short of breath and with O2 sat in the low 90s ABG shows a pH of 7.2, and a PCO2 of 144 after O2 therapy. Repeat ABG showed PCO2 140, patient's is DNR/DNI, but at this time. She is willing to try BiPAP. Hospitalist was called in for further evaluation and admission. PAST MEDICAL HISTORY: Per HPI PAST SURGICAL HISTORY: 1. Cardiac cath with stent placement in 2012. 2. Fracture left orbit July 2013 repaired. 3. Removal of all her teeth 2013. SOCIAL HISTORY: Denies smoking, denies alcohol use. Denies illicit drug use FAMILY HISTORY: No significant heart disease in the family. ALLERGIES: Please see below. REVIEW OF SYSTEMS: 12 point review of systems negative other than that described in the body of HPI. HOME MEDICATIONS: Please see below. PHYSICAL EXAMINATION: VITAL SIGNS: Temperature 97.8, pulse 83, respiratory rate 24, blood pressure 146/65, pulse oximetry 95% on BiPaP. GENERAL APPEARANCE: Middle aged woman, lying calmly in bed, not in any apparent distress. She is not pale, anicteric and afebrile HEENT: Atraumatic. Neck: Supple. LUNGS: Wheezes heard bilaterally. CARDIOVASCULAR: S1 and 2 heard, no murmurs, rubs or gallops. ABDOMEN: Obese, soft, not tender, not distended. Bowel sounds normoactive. MUSCULOSKELETAL: Apparently within normal limits. EXTREMITIES: No pedal edema, 2+ bilateral pedal pulses noted. NEUROLOGICAL: Awake, alert, oriented 3. PSYCHIATRIC: Normal affect LABORATORY DATA: See below. IMAGING: Chest x-ray: Chronic changes, unchanged from previous x-ray no acute findings. MICROBIOLOGY: Please see below. ASSESSMENT: Patient is a 62-year-old woman with multiple comorbid history mentioned above, COPD, obesity, comes in with shortness of breath evaluated with lab ABG showing a PCO2 of 140, however. Exam is consistent with patient being awake, alert and oriented to time, place and person. Chest auscultation reveals wheezing. Chest x-ray unchanged from previous. No acute finding. DIAGNOSES: 1. Acute on chronic respiratory failure with hypercapnia, likely secondary to COPD exacerbation 2. COPD exacerbation 3. Chronic Renal insufficiency likely diabetic nephropathy . PLAN: 1. I will admit patient to the ICU under care of Dr. Kim 2. Pulmonary consult placed in anticipation of BiPAP in the ICU. 3. Will continue Solu-Medrol 60 mg every 8 hours. 4. Of these oxygen supplementation as needed. 5. DuoNeb nebulizations when necessary shortness of breath. 6. Chronic renal insufficiency we'll review of patient's chart I see her creatinine has since been elevated as far back as January 2018 when creatinine was 1.7, now creatinine is 1.4. This may be resulting from diabetic nephropathy and with contributions of Hypertension. Patient will benefit from renal clinic follow-up post discharge. 7. GI prophylaxis. Pantoprazole. 8. DVT prophylaxis subcutaneous heparin 5000 international units every 12 hours. 9. We'll resume outpatient medications as reconciled. 10. Further care will be per patient's clinical course. Vital Signs Vital Signs Date Time Temp Pulse Resp B/P (MAP) Pulse Ox O2 Delivery O2 Flow Rate FiO2 05/26/18 23:59 BIPAP/CPAP 40 05/26/18 21:09 97.8 83 24 146/65 (92) 95 3.0 Laboratory Data Labs 24H Laboratory Tests 2 05/26/18 21:22: Nucleated Red Blood Cells % (auto) 0.2H, Anion Gap -4L, Glomerular Filtration Rate 39.6L, Blood Urea Nitrogen 20H, Creatinine 1.42H, Sodium Level 141, Potassium Level 4.9, Chloride Level 97L, Carbon Dioxide Level 48H, Calcium Level 8.7L 05/26/18 22:35: Blood Gas Bicarbonate Standard 46.7H, Arterial Blood pH 7.204*L, Arterial Blood Partial Pressure CO2 144.6*H, Arterial Blood Partial Pressure O2 145.6H, Arterial Blood Total CO2 60.2H, Arterial Blood HCO3 55.8H, Arterial Blood Base Excess 22.1H, Arterial Blood Oxygen Saturation 99.0 05/26/18 23:24: Blood Gas Bicarbonate Standard 45.8H, Arterial Blood pH 7.209*L, Arterial Blood Partial Pressure CO2 140.2*H, Arterial Blood Partial Pressure O2 73.4L, Arterial Blood Total CO2 59.0H, Arterial Blood HCO3 54.7H, Arterial Blood Base Excess 21.5H, Arterial Blood Oxygen Saturation 93.8L CBC/BMP Laboratory Tests 05/26/18 21:22 Red Blood Count 4.79, Mean Corpuscular Volume 82.5, Mean Corpuscular Hemoglobin 20.5 L, Mean Corpuscular Hemoglobin Concent 24.8 L, Red Cell Distribution Width 20.1 H, Calcium Level 8.7 L Home Medications Scheduled Atorvastatin Calcium (Atorvastatin Calcium) 80 Mg Tab, 80 MG PO QHS Clopidogrel Bisulfate (Clopidogrel) 75 Mg Tab, 75 MG PO DAILY 1700 Ergocalciferol (Vitamin D) 50,000 Unit Cap, 50,000 UNIT PO [id number] Ezetimibe (Zetia) 10 Mg Tab, 10 MG PO QHS Fenofibrate (Fenofibrate Micronized) 67 Mg Cap, 67 MG PO DAILY Fluticasone/Vilanterol (Breo Ellipta 100-25 Mcg/INH) 1 Inh Inh, 1 PUFF PO DAILY Furosemide (Furosemide) 20 Mg Tab, 40 MG PO DAILY Insulin Glargine (Lantus Solostar) 100 Unit/Ml Inj, 20 UNITS SC QAM 0600 Levothyroxine Sodium (Synthroid) 75 Mcg Tab, 75 MCG PO DAILY Linagliptin Base (Tradjenta) 5 Mg Tab, 5 MG PO QHS Metoprolol Tartrate (Metoprolol Tartrate) 25 Mg Tab, 25 MG PO BID Oxybutynin Chloride (Oxybutynin Chloride ER) 15 Mg Tab, 15 MG PO DAILY Potassium Chloride (Klor-Con M10) 10 Meq Tabcr, 10 MEQ PO QHS Senna (Senna-Tabs) 8.6 Mg Tab, 1 TAB PO DAILY Sertraline Hcl (Zoloft) 100 Mg Tab, 150 MG PO DAILY Tiotropium [place] Monohydrate (Spiriva Respimat) 2.5 Mcg/Act Spr, 2 INHALATION INH QHS Scheduled PRN Acetaminophen (Acetaminophen) 325 Mg Tab, 650 MG PO Q6H PRN for PAIN Albuterol Sulfate (Proair Hfa) 108 Mcg/Act Aer, 1 PUFF INH Q4H PRN for SHORTNESS OF BREATH Diphenhydramine HCl (Diphenhydramine HCl) 25 Mg Cap, 25 MG PO Q8H PRN for ITCHING Loperamide HCl (Loperamide HCl) 2 Mg Cap, 2 MG PO QID PRN for AFTER EACH LOOSE STOOL Allergies Coded Allergies: Soap (Verified Allergy, Intermediate, REDNESS, 02/22/17) DIAP SOAP Dextromethorphan (Unverified Allergy, Unknown, HIVES, 02/22/17) Hydrocodone (Unverified Allergy, Unknown, 02/22/17) Latex (Verified Allergy, Unknown, RASH, 02/22/17) MILAGROS LOMBARDO MD May 27, 2018 01:11
[2018-05-27] MEDS ORDERED: DEXTROSE 50% 50 ML SYRINGE IV PRN (01:15)
[2018-05-27] MEDS ORDERED: GLUCOSE 4 GM CHEW TABLET PO PRN (01:15)
[2018-05-27] MEDS ORDERED: GLUCAGON FOR INJ 1 MG VIAL (J1610) SC PRN (01:15)
[2018-05-27] MEDS ORDERED: methylPREDNISolone INJ 125 MG/2 ML VIAL (J2930) IV SCH (04:00)
[2018-05-27] MEDS: ATORVASTATIN 20 MG TAB PO SCH ×2 (04:30→21:27)
[2018-05-27] MEDS: METOPROLOL TART 25 MG TABLET PO SCH ×3 (04:30→21:28)
[2018-05-27] MEDS: POTASSIUM CHLORIDE 10 MEQ SR TABLET PO SCH ×2 (04:30→21:28)
[2018-05-27] MEDS: EZETIMIBE 10 MG TAB (ZETIA) PO SCH ×2 (04:31→21:27)
[2018-05-27 04:53] LABS: CALCIUM LEVEL 8.8 MG/DL (8.8-10.2); CREATININE FOR GFR 1.54 MG/DL (0.55-1.30); GLOMERULAR FILTRATION RATE 36.1 (>45); POTASSIUM SERUM 4.6 MEQ/L (3.5-5.1)
[2018-05-27 04:54] LABS: BASO % 0.4 % (0.0-1.0); EOS # 0.1 10^3/uL (0.0-0.50); EOS % 1.3 % (0.0-3.0); HEMATOCRIT 37.6 % (36.0-47.0); HEMOGLOBIN 9.2 g/dl (12.0-15.5); LYMPH # 0.7 10^3/uL (1.5-4.5); LYMPH % 9.7 % (24.0-44.0); MEAN CORPUSCULAR HEMOGLOBIN 20.9 pg (27.0-33.0); MEAN CORPUSCULAR HGB CONC 24.5 g/dl (32.0-36.5); MEAN CORPUSCULAR VOLUME 85.3 fl (80.0-96.0); MONO # 0.5 10^3/uL (0.0-0.8); MONO % 7.3 % (0.0-5.0); NEUTROPHILS # 5.4 10^3/uL (1.8-7.7); NEUTROPHILS % 79.2 % (36.0-66.0); PLATELET COUNT, AUTOMATED 196 10^3/uL (150-450); RED BLOOD COUNT 4.41 10^6/uL (4.00-5.40); WHITE BLOOD COUNT 6.8 10^3/uL (4.0-10.0)
[2018-05-27] MEDS: LEVOTHYROXINE 75MCG TABLET (0.075MG) PO SCH (06:18)
[2018-05-27] MEDS: HumaLOG INSULIN (NovoLOG) PER UNIT SC SCH ×4 (07:11→21:00)
[2018-05-27 08:14] LABS: ABG BASE EXCESS 18.8 (-2.0-2.0); ABG HCO3 49.1 MEQ/L (22.0-26.0); ABG O2 SATURATION 98.8 % (95.0-99.0); ABG PARTIAL PRESSURE O2 139.4 mmHg (75.0-100.0); ABG STANDARD HCO3 42.9 MEQ/L (22.0-26.0); ABG TOTAL CO2 52.3 MEQ/L (23.0-31.0); ABG pH (ARTERIAL) 7.299 UNITS (7.350-7.450)
[2018-05-27 08:15] LABS: ABG PARTIAL PRESSURE CO2 102.4 mmHg (35.0-45.0)
--- NOTE | 2018-05-27 08:57 | REP ---
Chest x-ray: Two views. History: Dyspnea and cough. Comparison chest x-ray is from May 25, 2018. Findings: Vascular calcification is seen in the known right aortic arch as before. Moderate cardiac enlargement is again observed. No infiltrate or pleural effusion is evident. Pulmonary vasculature is cephalized unchanged. EKG electrodes and oxygen delivery tubing are seen. Impression: Cardiomegaly and vascular cephalization consistent with CHF unchanged. No acute infiltrate, pleural effusion, or pulmonary edema is seen. Right aortic arch again seen. Electronically Signed by Curtis Garcia MD 05/27/2018 08:48 A
[2018-05-27] MEDS ORDERED: LEVEMIR (INSULIN DETEMIR) 1 UNITS/0.01ML SC SCH (09:00)
[2018-05-27] MEDS: NYSTATIN 100,000 UNITS/GM TOPICAL PWD 15 GM TOP SCH ×2 (09:38→21:29)
[2018-05-27] MEDS: SERTRALINE HCL 50 MG TAB PO SCH (09:39)
[2018-05-27] MEDS: HEPARIN SOD (PORCINE) 5000 UNITS/ML VIAL SQ SCH ×2 (09:39→21:28)
[2018-05-27] MEDS: CLOPIDOGREL 75 MG TAB PO SCH (09:39)
[2018-05-27] MEDS: FUROSEMIDE 40 MG TAB PO SCH (09:39)
[2018-05-27] MEDS: oxyBUTYnin *DITROPAN XL* 5 MG TABCR PO SCH (09:39)
[2018-05-27] MEDS: SENNA 8.6 MG TAB (SENOKOT) PO SCH (09:40)
[2018-05-27] MEDS: PANTOPRAZOLE 40MG TAB (PROTONIX) PO SCH (09:40)
[2018-05-27 10:19] LABS: ABG BASE EXCESS 17.9 (-2.0-2.0); ABG HCO3 48.4 MEQ/L (22.0-26.0); ABG O2 SATURATION 98.7 % (95.0-99.0); ABG PARTIAL PRESSURE O2 118.9 mmHg (75.0-100.0); ABG STANDARD HCO3 41.9 MEQ/L (22.0-26.0); ABG TOTAL CO2 51.5 MEQ/L (23.0-31.0); ABG pH (ARTERIAL) 7.289 UNITS (7.350-7.450)
[2018-05-27 10:23] LABS: ABG PARTIAL PRESSURE CO2 103.1 mmHg (35.0-45.0)
[2018-05-27] MEDS ORDERED: FUROSEMIDE 20 MG/2 ML VIAL (J1940) IV ONE (11:00)
--- NOTE | 2018-05-27 11:54 | CR ---
DATE OF CONSULTATION: 05/27/2018 HISTORY OF PRESENT ILLNESS: 62-year-old woman with a past medical history of diabetes. CAD status post non-ST elevation myocardial infarction (NSTEMI) with a drug eluting stent in 2012, history of peripheral artery disease with subclavian steal syndrome, hyperlipidemia, hypothyroidism, chronic kidney disease (CKD), obstructive sleep apnea (MARY) not compliant with bilevel positive airway pressure (BiPAP), questionable history of asthma/chronic obstructive pulmonary disease (COPD) who presented with increasing shortness of breath with occasional nonproductive cough for the past week. The patient reports she has not been compliant with her BiPAP at night. She does have nasal cannula oxygen supplementation, which she uses occasionally. She is also noncompliant with her diuretics and she does have inhalers prescribed for her with Breo and Spiriva, which she reports she has been using occasionally. The patient did take some respiratory treatments at home without any improvement and so she presented to the emergency department (ED) for further evaluation. She denied any fevers or chills. No myalgias. She did have some friends who had been sick recently. She had no chest pains, did have some mild chest tightness but no palpitations, no dizziness, no loss of consciousness. The patient did report that she had noted some increasing abdominal distention as well in the past few days. Did not report any increased lower extremity edema. No nausea or vomiting. No abdominal pain. In the emergency department (ED), the patient was noted to be mildly hypoxemic with oxygen saturations in the 90s. The patient was placed on oxygen supplementation. She had an arterial blood gas (ABG) which showed acute on chronic hypercapnic respiratory failure. She was sleepy but mentating at the time and was able to answer questions appropriately. The patient does have a previous Medical Orders for Life Sustaining Treatment (MOLST) and was confirmed to be DO NOT RESUSCITATE, DO NOT INTUBATE but was willing for noninvasive positive pressure therapy. She was therefore admitted to the intensive care unit (ICU) for further management. The patient was placed on BiPAP in the ICU on AVAPS mode with a target tidal volume of 450 with an inspiratory pressure max of 25 and min of 10 and EPAP of 5 with a respiratory rate of 8 and FiO2 of 40%. PAST MEDICAL HISTORY: 1. Diabetes. 2. CAD status post NSTEMI with a drug eluting stent in 2012. 3. PAD and subclavian steal syndrome. 4. Right aortic arch. 5. Hyperlipidemia. 6. Hypothyroidism. 7. Stress urinary incontinence. 8. Depression. 9. A horseshoe kidney with CKD. 10. Hypertension. 11. Asthma and restrictive lung disease. 12. MARY noncompliant with BiPAP. 13. Nephrolithiasis status post lithotripsy and stenting. PAST SURGICAL HISTORY: Drug eluting stent, teeth removal in 2013, transurethral resection of bladder (TURBT) in 2014, nephrolithiasis status post lithotripsy and stent. ALLERGIES: LATEX, HYDROCODONE. FAMILY HISTORY: Father with history of hypertension, myocardial infarction ([place]), stroke, and kidney disease. Mother with history of lung cancer and heart disease. SOCIAL HISTORY: Patient is a nonsmoker. She does report a history of second-hand smoke exposure in her close family members. REVIEW OF SYSTEMS: As per history of present illness (HPI). Somewhat limited as patient is on BiPAP and is sleepy. HOME MEDICATIONS: - atorvastatin - Plavix - vitamin D - Zetia - fenofibrate - Breo - furosemide - Lantus - Synthroid - Tradjenta - metoprolol - oxybutynin - potassium chloride - Senna - Zoloft - Spiriva PHYSICAL EXAMINATION: Temperature 97.6, pulse 73, respirations 22, blood pressure 107/53, oxygen saturation 92% on BiPAP, 40% FiO2. General: Patient is morbidly obese, sleeping in bed, does not appear to be in any acute distress, is not using any accessory respiratory muscles. HEENT: Normocephalic, atraumatic. Patient with a thick neck. No palpable adenopathy. Trachea appears midline. Cardiovascular: Distant heart sounds. S1 and S2. No murmurs or rubs appreciated. Lungs: Diminished breath sounds bilaterally. No wheezing auscultated posteriorly. There are crackles bilaterally at the bases. Abdomen is obese, soft, appears mildly distended and there is some suprapubic tenderness noted. Lower extremities: No pitting edema bilaterally. Peripheral pulses are palpable. LABS: WBC 65.8, hemoglobin 9.2, platelets 196. Chemistry: Sodium 144, potassium 4.6, chloride 97, bicarbonate 45, BUN 19, creatinine 1.54, glucose 111. Initial ABG in the ED was 7.204, pCO2 of 144.6, pO2 of 145.6. Repeat ABG after patient was on BiPAP overnight wit a pH of 7.299, pCO2 of 102.4 and a pO2 of 139.4. Chest x-ray on admission showed cardiomegaly. There was some increased interstitial markings bilaterally, which appear chronic. No focal opacities or infiltrates. ASSESSMENT AND PLAN: Patient is a 62-year-old woman with a history of chronic hypercapnic respiratory failure likely with obesity hypoventilation syndrome (OHS)/obstructive sleep apnea is noncompliant with home BiPAP, history of asthma less likely chronic obstructive pulmonary disease, chronic restrictive lung disease secondary to obesity, history of diabetes, CAD, history of heart failure with preserved ejection fraction (EF) who presented with increasing shortness of breath for the past week. The patient was found to have acute on chronic hypercapnic respiratory failure, was placed on BiPAP overnight with AVAPs mode and with a repeat ABG this morning showing some improvement in her pCO2 and in her respiratory acidosis. The patient had been mentating throughout this, she is likely chronically compensated at this time. On exam, I did not appreciate any wheezing this morning. She was started on Solu-Medrol and DuoNebs for possible asthma/COPD exacerbation. She does report some increased abdominal distention and did have some mild suprapubic tenderness on exam. I suspect that patient likely has a component of fluid overload and possibly cardiogenic wheezing. Patient has been known to be noncompliant with medications including her diuretics. Therefore, will check a brain natriuretic peptide (BNP) and if elevated would increase her dose of diuretics. Suspect patient may have a component of urinary retention so will place a Crocker catheter and monitor her ins and outs. Will check a respiratory viral panel swab as well. Continue with Solu-Medrol for now, as well as with DuoNebs. Will adjust her BiPAP settings to regular BiPAP mode with pressures of 22/10, respiratory rate of 12 and FiO2 40%. Will get a repeat ABG after change in settings. Patient is a DO NOT RESUSCITATE, DO NOT INTUBATE; however, she is agreeable to a trial of noninvasive positive pressure ventilation. [facility]
[2018-05-27 14:10] LABS: ABG BASE EXCESS 9.1 (-2.0-2.0); ABG HCO3 36.7 MEQ/L (22.0-26.0); ABG O2 SATURATION 98.3 % (95.0-99.0); ABG PARTIAL PRESSURE O2 112.5 mmHg (75.0-100.0); ABG STANDARD HCO3 32.8 MEQ/L (22.0-26.0); ABG TOTAL CO2 38.9 MEQ/L (23.0-31.0); ABG pH (ARTERIAL) 7.326 UNITS (7.350-7.450)
[2018-05-27 14:14] LABS: ABG PARTIAL PRESSURE CO2 71.8 mmHg (35.0-45.0)
[2018-05-27] MEDS: methylPREDNISolone INJ 40 MG/1 ML VIAL (J2920) IV SCH (16:33)
[2018-05-28] VITALS (10 sets, daily range): BP systolic 100–130; BP diastolic 49–71
[2018-05-28 04:36] LABS: HEMATOCRIT 31.5 % (36.0-47.0); HEMOGLOBIN 8.4 g/dl (12.0-15.5); MEAN CORPUSCULAR HEMOGLOBIN 21.2 pg (27.0-33.0); MEAN CORPUSCULAR HGB CONC 26.7 g/dl (32.0-36.5); MEAN CORPUSCULAR VOLUME 79.3 fl (80.0-96.0); PLATELET COUNT, AUTOMATED 191 10^3/uL (150-450); RED BLOOD COUNT 3.97 10^6/uL (4.00-5.40); WHITE BLOOD COUNT 6.7 10^3/uL (4.0-10.0)
[2018-05-28] MEDS: methylPREDNISolone INJ 40 MG/1 ML VIAL (J2920) IV SCH ×2 (04:59→17:06)
[2018-05-28] MEDS: LEVOTHYROXINE 75MCG TABLET (0.075MG) PO SCH (05:00)
[2018-05-28 05:05] LABS: CALCIUM LEVEL 8.5 MG/DL (8.8-10.2); CREATININE FOR GFR 1.52 MG/DL (0.55-1.30); GLOMERULAR FILTRATION RATE 36.7 (>45); POTASSIUM SERUM 4.5 MEQ/L (3.5-5.1)
[2018-05-28 08:23] LABS: ABG BASE EXCESS 18.7 (-2.0-2.0); ABG HCO3 47.4 MEQ/L (22.0-26.0); ABG O2 SATURATION 98.7 % (95.0-99.0); ABG PARTIAL PRESSURE O2 130.6 mmHg (75.0-100.0); ABG STANDARD HCO3 42.8 MEQ/L (22.0-26.0); ABG pH (ARTERIAL) 7.363 UNITS (7.350-7.450)
[2018-05-28 08:28] LABS: ABG PARTIAL PRESSURE CO2 85.2 mmHg (35.0-45.0)
[2018-05-28] MEDS: HEPARIN SOD (PORCINE) 5000 UNITS/ML VIAL SQ SCH ×2 (09:18→20:50)
[2018-05-28] MEDS: NYSTATIN 100,000 UNITS/GM TOPICAL PWD 15 GM TOP SCH ×2 (09:18→20:51)
[2018-05-28] MEDS: oxyBUTYnin *DITROPAN XL* 5 MG TABCR PO SCH (09:19)
[2018-05-28] MEDS: HumaLOG INSULIN (NovoLOG) PER UNIT SC SCH ×4 (09:19→20:51)
[2018-05-28] MEDS: LEVEMIR (INSULIN DETEMIR) 1 UNITS/0.01ML SC SCH (09:19)
[2018-05-28] MEDS: FUROSEMIDE 40 MG TAB PO SCH (09:20)
[2018-05-28] MEDS: CLOPIDOGREL 75 MG TAB PO SCH (09:20)
[2018-05-28] MEDS: SERTRALINE HCL 50 MG TAB PO SCH (09:20)
[2018-05-28] MEDS: SENNA 8.6 MG TAB (SENOKOT) PO SCH (09:20)
[2018-05-28] MEDS: METOPROLOL TART 25 MG TABLET PO SCH ×2 (09:20→20:49)
[2018-05-28] MEDS: PANTOPRAZOLE 40MG TAB (PROTONIX) PO SCH (09:20)
--- NOTE | 2018-05-28 10:41 | IPNPDOC ---
Subjective Date Seen The patient was seen on 05/28/18. Subjective Chief Complaint/HPI Pt this morning reports that she is feeling much better. She is less SOB, she would like to go home today. General: Denies: Fatigue Constitutional: Denies: Chills, Fever ENT: Denies: Head Aches Pulmonary: Denies: Dyspnea, Cough Cardiovascular: Denies: Chest Pain, Palpitations Gastrointestinal: Denies: Nausea, Vomiting, Diarrhea Neurological: Denies: Weakness Psych: Reports: Mood Normal Objective Physical Examination General Exam: Positive: Alert, Cooperative, No Acute Distress ENT Exam: Positive: Mucous membr. moist/pink Neck Exam: Negative: Supple, JVD Chest Exam: Positive: Diminished; Negative: Clear to auscultation, Rales, Rhonchi, Wheezing Heart Exam: Positive: Rate Normal, Normal S1, Normal S2 Abdomen Exam: Positive: Normal bowel sounds, Soft; Negative: Tenderness Extremity Exam: Negative: Edema Psych Exam: Positive: Mental status NL, Mood NL Assessment /Plan Problems (1) Acute respiratory failure with hypercapnia Status: Acute Problem Text: Admitted to ICU, mgmt per Pulm. Solumedrol dose decreased from 60 q8 to 40 q12 per Pulm, Cont with nebs. Cont with O2, enc compliance with BiPAP when sleeping. (2) Obstructive sleep apnea treated with bilevel positive airway pressure (BiPAP) Status: Chronic Problem Specific Plan: Monitor Clinically Problem Text: Enc compliance with BIPAP. (3) Obesity hypoventilation syndrome Status: Chronic Response to Treatment: Stable Problem Specific Plan: Monitor Clinically (4) Chronic kidney disease, stage 3 Status: Chronic Response to Treatment: Stable Problem Specific Plan: Monitor Clinically, Repeat Labs Problem Text: At baseline scr 1.5. (5) Diabetes Status: Chronic Response to Treatment: Stable Problem Specific Plan: Monitor Clinically Problem Text: SSI/FSBS coverage. Cont with Levemir 16 units. (6) Diastolic congestive heart failure Status: Chronic Problem Specific Plan: Monitor Clinically, Repeat Labs Problem Text: BNP 5132 on admission, given Lasix 20 mg per Pulm, appears compensated today. 08/30 this was > 72276 Plan/VTE VTE Prophylaxis Ordered?: Yes (SCD/TEDs) Plan Family Medicine Attending Note: I saw and examined Ms. Potts, discussed with ANDREZ Thurman. Agree with her note as documented. She is doing better when she is on pressure support at night. She did have a slight rise in her PCO2 this morning. We'll see how she does with her BiPAP overnight. I had a manolo conversation with the patient that she may not like noninvasive ventilation while she sleeps, but it's becoming more and more clear that it's a critical part of maintaining her health. She reluctantly agreed with me. I anticipate she may be moved out of the ICU tomorrow. She may be discharged back to [facility] as early as tomorrow or the next day. 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) VS, I&O, 24H, Fishbone Vital Signs/I&O Vital Signs Date Time Temp Pulse Resp B/P (MAP) Pulse Ox O2 Delivery O2 Flow Rate FiO2 05/28/18 09:20 71 129/60 05/28/18 08:05 35 05/28/18 06:00 94 NIPPV (BIPAP/CPAP) 05/28/18 04:00 98.2 20 2.0 I&O- Last 24 Hours up to 6 AM 05/28/18 06:00 Intake Total 850 ml Output Total 1490 ml Balance -640 ml Laboratory Data 24H LABS Laboratory Tests 2 05/27/18 11:53: Bedside Glucose (Misc Panel) 113 05/27/18 13:54: Blood Gas Bicarbonate Standard 32.8H, Arterial Blood pH 7.326L, Arterial Blood Partial Pressure CO2 71.8*H, Arterial Blood Partial Pressure O2 112.5H, Arterial Blood Total CO2 38.9H, Arterial Blood HCO3 36.7H, Arterial Blood Base Excess 9.1H, Arterial Blood Oxygen Saturation 98.3 05/27/18 17:53: Bedside Glucose (Misc Panel) 112 05/27/18 21:26: Bedside Glucose (Misc Panel) 172H 05/28/18 04:08: Nucleated Red Blood Cells % (auto) 0.0, Anion Gap 0L, Glomerular Filtration Rate 36.7L, Blood Urea Nitrogen 29#H, Creatinine 1.52H, Sodium Level 139, Potassium Level 4.5, Chloride Level 94L, Carbon Dioxide Level 45H, Calcium Level 8.5L 05/28/18 08:06: Blood Gas Bicarbonate Standard 42.8H, Arterial Blood pH 7.363, Arterial Blood Partial Pressure CO2 85.2*H, Arterial Blood Partial Pressure O2 130.6H, Arterial Blood Total CO2 50.0H, Arterial Blood HCO3 47.4H, Arterial Blood Base Excess 18.7H, Arterial Blood Oxygen Saturation 98.7 CBC/BMP Laboratory Tests 05/28/18 04:08 Red Blood Count 3.97 L, Mean Corpuscular Volume 79.3 L, Mean Corpuscular Hemog lobin 21.2 L, Mean Corpuscular Hemoglobin Concent 26.7 L, Red Cell Distribution Width 19.5 H, Calcium Level 8.5 L Microbiology Microbiology 05/27/18 Respiratory Virus Panel (PCR) (AJAY) - Final, Complete DIPESH STARR PA-C May 28, 2018 10:41 Flynn Liu MD May 28, 2018 22:18
--- NOTE | 2018-05-28 11:49 | IPN ---
DATE: 05/27/2018 Phyllis is seen in ICU. She has already been seen by pulmonology/critical care. Patient feels less short of breath. Feels like she is back to nearing her baseline. They have been adjustments on her noninvasive ventilation made by pulmonary this morning. PHYSICAL EXAMINATION: Vital signs: Stable 115/56. General appearance: She was sleeping, but awoke easily. Answered questions. Said that she is feeling much better. She has a thick neck. There is no jugular venous distention (JVD). Lungs have decreased breath sounds, but clear. Heart: Regular rhythm. Abdomen: Soft, nontender. Trace 1+ peripheral edema. LABS: Were reviewed. GFR is 36. Her ABG 7.28/103/118. IMPRESSION: Acute on chronic respiratory failure secondary to congestive heart failure and noncompliance with CPAP. PLAN: 1. Pulmonology is involved. Appreciate their assistance with noninvasive ventilation. I was going to do a net negative to initiate a more rigorous diuresis, but she has already received a dose intravenously. We will see how she responds to this. If she does not diurese well, we will start a net negative on her for the next day or two. Her most recent echocardiogram was 08/2017. Left atrium 33 mm. Ejection fraction not quantitated but appeared normal. Mild grade 1 diastolic dysfunction noted. Unable to measure pulmonary artery pressures. She is followed by [facility] if we do need cardiology. 2. Diabetes, type 2. She is on basal insulin and a sliding scale. She was frequently hypoglycemic recently at home per review of her office note from 05/25/2018. I am going to cut the basal insulin dose down. Hold the glipizide. Hold Tradjenta. 3. Coronary artery disease. Status post non-ST segment elevation myocardial infarction ([place]) 2012 with a drug eluding stent unspecified artery. Continue her Plavix, metoprolol, atorvastatin 80 mg daily. 4. COPD. She is on bronchodilator. 5. Hypothyroidism. Continue levothyroxine 75 mcg daily.
[2018-05-28] MEDS: EZETIMIBE 10 MG TAB (ZETIA) PO SCH (20:49)
[2018-05-28] MEDS: POTASSIUM CHLORIDE 10 MEQ SR TABLET PO SCH (20:49)
[2018-05-28] MEDS: ATORVASTATIN 20 MG TAB PO SCH (20:55)
[2018-05-29] VITALS: BP 106/55
[2018-05-29] MEDS: methylPREDNISolone INJ 40 MG/1 ML VIAL (J2920) IV SCH (03:51)
[2018-05-29 04:00] VITALS: BP 101/55
[2018-05-29 04:45] LABS: HEMATOCRIT 34.3 % (36.0-47.0); MEAN CORPUSCULAR HEMOGLOBIN 20.5 pg (27.0-33.0); MEAN CORPUSCULAR HGB CONC 26.2 g/dl (32.0-36.5); PLATELET COUNT, AUTOMATED 203 10^3/uL (150-450); WHITE BLOOD COUNT 7.5 10^3/uL (4.0-10.0)
[2018-05-29 05:18] LABS: CALCIUM LEVEL 8.8 MG/DL (8.8-10.2); CREATININE FOR GFR 1.54 MG/DL (0.55-1.30); GLOMERULAR FILTRATION RATE 36.1 (>45); POTASSIUM SERUM 4.4 MEQ/L (3.5-5.1)
[2018-05-29] MEDS: LEVOTHYROXINE 75MCG TABLET (0.075MG) PO SCH (06:24)
[2018-05-29] MEDS: HumaLOG INSULIN (NovoLOG) PER UNIT SC SCH ×2 (07:43→12:38)
[2018-05-29 08:00] VITALS: BP 111/55
[2018-05-29] MEDS ORDERED: SLF 3 ML SYR IV PRN (08:00)
[2018-05-29] MEDS ORDERED: NYAM10003 TOP (08:28)
[2018-05-29] MEDS ORDERED: PRED10TA2 PO (08:28)
--- NOTE | 2018-05-29 09:38 | DSES ---
DATE OF ADMISSION: 05/27/2018 DATE OF DISCHARGE: 05/29/2018 PRIMARY CARE PROVIDER: Tova Fuentes DO ATTENDING PHYSICIAN: Today is Flynn Liu MD. HISTORY: This is a 62-year-old female patient who has a history of chronic diastolic congestive heart failure, chronic obstructive pulmonary disease (COPD), diabetes, who presented to the emergency room with at least a 2-day history of increased shortness of breath. She had been noncompliant with her bilateral positive airway pressure (BiPAP) at home. Her breathing did not improve with any respiratory treatments and, therefore, she presented to the emergency room for further evaluation. At presentation, she was found to be short of breath with saturations in the low 90s, arterial blood gas (ABG) with a pH of 7.2, PCO2 of 144 after oxygen (O2). Repeat showed a PCO2 of 140. The patient was DO NOT RESUSCITATE (DNR), DO NOT INTUBATE (DNI) but willing to try BiPAP. Hospitalist was called for admission. She was admitted to the intensive care unit where she was placed on BiPAP, as well as Solu-Medrol. Pulmonary was consulted, and Dr. Mccoy saw the patient. She recommended checking a pro-brain natriuretic peptide (BNP), as well as administering a dose of Lasix. The patient's respiratory status has significantly improved. She is using her BiPAP only at night. She is on oxygen during the day and seems to be tolerating this well. She is ambulating around the room with minimal difficulty. Will transition her home today. The patient is agreeable to this. Her discharge diagnoses include: 1. Acute on chronic respiratory failure with hypercapnia. 2. Obstructive sleep apnea, treated with BiPAP. 3. Obesity hypoventilation syndrome. 4. Chronic kidney disease stage III. 5. Diabetes mellitus type 2. 6. Chronic diastolic congestive heart failure. MEDICATIONS: Include: - Nystatin powder topically twice daily to abdominal skin folds - prednisone 10 mg tapered, four tablets daily times three days, then three tablets daily times three days, then two tablets daily times three days, then one tablet daily times three days - albuterol sulfate, ProAir, one puff every 4 hours as needed for shortness of breath - atorvastatin 80 mg nightly - Plavix 75 mg by mouth daily - Benadryl 25 mg every 8 hours as needed for itching - vitamin D 50,000 units weekly - Zetia 10 mg by mouth nightly - fenofibrate 67 mg by mouth daily - Breo Ellipta one puff daily - furosemide 40 mg daily - Lantus 20 units subcutaneously every morning - Synthroid 25 mcg by mouth daily - Tradjenta 5 mg by mouth nightly - loperamide 2 mg every 4 hours as needed for loose stool - metoprolol 25 mg by mouth twice a day - oxybutynin 15 mg by mouth daily - potassium chloride 10 mEq by mouth daily - senna one tablet by mouth daily - sertraline 150 mg by mouth daily - Spiriva 2.5 mcg inhaled before bed DISCHARGE PLAN: Will be to followup with Dr. Humphries in 3-5 days. Her activity should be as tolerated. Her diet should be ADA no-added salt. edited: 05/30/2018 0745 tkf JOSE
[2018-05-29] MEDS: NYSTATIN 100,000 UNITS/GM TOPICAL PWD 15 GM TOP SCH (10:54)
[2018-05-29] MEDS: CLOPIDOGREL 75 MG TAB PO SCH (10:54)
[2018-05-29] MEDS: FUROSEMIDE 40 MG TAB PO SCH (10:55)
[2018-05-29] MEDS: oxyBUTYnin *DITROPAN XL* 5 MG TABCR PO SCH (10:55)
[2018-05-29] MEDS: SERTRALINE HCL 50 MG TAB PO SCH (10:55)
[2018-05-29] MEDS: SENNA 8.6 MG TAB (SENOKOT) PO SCH (10:55)
[2018-05-29 10:58] VITALS: BP 111/55
[2018-05-29] MEDS: PANTOPRAZOLE 40MG TAB (PROTONIX) PO SCH (10:58)
[2018-05-29] MEDS: METOPROLOL TART 25 MG TABLET PO SCH (10:58)
[2018-05-29] MEDS: LEVEMIR (INSULIN DETEMIR) 1 UNITS/0.01ML SC SCH (10:58)
[2018-05-29] MEDS: HEPARIN SOD (PORCINE) 5000 UNITS/ML VIAL SQ SCH (10:59)
[2018-05-29 12:00] VITALS: BP 111/58
[2018-05-29] MEDS ORDERED: SLF 3 ML SYR IV SCH (14:00)
== END 2018-05-29 13:02 | DRG 189 ==
LOC: M ED 20:50 → M ED INP 05-27 00:26 → M ICU 05-27 03:05
PROVIDERS: ADMIT Hospitalist; ATTEND Family Medicine
DX: J96.21 Acute and chronic respiratory failure with hypoxia (principal); J44.1 Chronic obstructive pulmonary disease with (acute) exacerbation; I50.32 Chronic diastolic (congestive) heart failure; Z68.41 Body mass index [BMI] 40.0-44.9, adult; E66.2 Morbid (severe) obesity with alveolar hypoventilation; I51.7 Cardiomegaly; N18.3 Chronic kidney disease, stage 3 (moderate); G47.33 Obstructive sleep apnea (adult) (pediatric); E11.9 Type 2 diabetes mellitus without complications; Z66 Do not resuscitate; Z79.899 Other long term (current) drug therapy; Z95.2 Presence of prosthetic heart valve; E03.9 Hypothyroidism, unspecified; Q63.1 Lobulated, fused and horseshoe kidney; Z79.4 Long term (current) use of insulin; Z91.040 Latex allergy status; Z88.5 Allergy status to narcotic agent; Z88.8 Allergy status to other drugs, medicaments and biological substances; I25.2 Old myocardial infarction; E78.5 Hyperlipidemia, unspecified; N39.3 Stress incontinence (female) (male); Z91.19 Patient's noncompliance with other medical treatment and regimen

== ENCOUNTER 2018-06-13 12:39 | Inpatient (IN) | payer MEDICARE, MEDICAID ==
[2018-06-13] VITALS (19 sets, daily range): BP systolic 71–112; BP diastolic 39–59
[~2018-06-13] VITALS: Ht 152.4 cm; Wt 91.2 kg
[~2018-06-13 12:39] MED LIST changes: +ACET1TAB55 PO; +ATOR80TA59 PO; +BREO1INH PO; +DIPH25CA PO; +LANTINJ4 SC; +LOPE2CA PO; +NYAM10003 TOP; +PRED10TA2 PO; +SENN8.6T28 PO; +SPIR12.9 INH; +TRAD5TAB PO; +VITA50005 PO
[2018-06-13] MEDS ORDERED: methylPREDNISolone INJ 125 MG/2 ML VIAL (J2930) IV ONE (13:00)
[2018-06-13 13:02] LABS: ABG BASE EXCESS 11.6 (-2.0-2.0); ABG HCO3 47.9 MEQ/L (22.0-26.0); ABG O2 SATURATION 98.2 % (95.0-99.0); ABG PARTIAL PRESSURE O2 141.3 mmHg (75.0-100.0); ABG STANDARD HCO3 35.4 MEQ/L (22.0-26.0); ABG TOTAL CO2 53.3 MEQ/L (23.0-31.0)
[2018-06-13] MEDS: IPRATROPIUM 0.5MG/ALBUTEROL 2.5MG INH SOL UD 3ML (DUONEB)(J7620) NEB PRN ×3 (13:02→13:41)
[2018-06-13 13:05] LABS: ABG PARTIAL PRESSURE CO2 176.1 mmHg (35.0-45.0); ABG pH (ARTERIAL) 7.052 UNITS (7.350-7.450)
[2018-06-13 13:15] LABS: BASO # 0.1 10^3/uL (0.0-0.2); BASO % 0.4 % (0.0-1.0); HEMATOCRIT 45.5 % (36.0-47.0); HEMOGLOBIN 11.5 g/dl (12.0-15.5); LYMPH # 0.4 10^3/uL (1.5-4.5); LYMPH % 3.1 % (24.0-44.0); MEAN CORPUSCULAR HEMOGLOBIN 20.9 pg (27.0-33.0); MEAN CORPUSCULAR HGB CONC 25.3 g/dl (32.0-36.5); MEAN CORPUSCULAR VOLUME 82.9 fl (80.0-96.0); MONO # 0.5 10^3/uL (0.0-0.8); MONO % 4.1 % (0.0-5.0); NEUTROPHILS # 10.7 10^3/uL (1.8-7.7); NEUTROPHILS % 88.8 % (36.0-66.0); PLATELET COUNT, AUTOMATED 269 10^3/uL (150-450); RED BLOOD COUNT 5.49 10^6/uL (4.00-5.40); WHITE BLOOD COUNT 12.1 10^3/uL (4.0-10.0)
--- NOTE | 2018-06-13 13:24 | REP ---
Clinical: Cough and dyspnea. Comparison: 05/26/2018. Findings: Cardiomegaly is appreciated along with pulmonary edema including cephalization, indistinct central pulmonary vasculature, increased interstitial markings. Bilateral lower lobe infiltrates (left greater than right) and possible layering left effusion. No pneumothorax. Skeletal structures stable. Impression: Cardiomegaly with findings to suggest pulmonary edema. Bibasilar infiltrates and possible left pleural effusion. Electronically Signed by Phillip Garcia MD 06/13/2018 01:16 P
[2018-06-13 13:44] LABS: ALBUMIN 3.3 GM/DL (3.2-5.2); BILIRUBIN,DIRECT 0.2 MG/DL (0.0-0.2); BILIRUBIN,TOTAL 0.3 MG/DL (0.2-1.0); CALCIUM LEVEL 9.1 MG/DL (8.8-10.2); CREATININE FOR GFR 1.55 MG/DL (0.55-1.30); GLOMERULAR FILTRATION RATE 35.8 (>45); MB/CK RELATIVE INDEX 6.25 (< OR =4); POTASSIUM SERUM 4.5 MEQ/L (3.5-5.1); TOTAL PROTEIN 7.6 GM/DL (6.4-8.2); TROPONIN I 0.02 NG/ML (< 0.10)
[2018-06-13] MEDS ORDERED: FUROSEMIDE 100 MG/10 ML VIAL (J1940) IV ONE (13:45)
[2018-06-13] MEDS ORDERED: LIDOCAINE 2% 5ML JELLY UROJET TOP ONE (13:45)
[2018-06-13 14:37] LABS: PROTHROMBIN TIME 13.3 SECONDS (12.1-14.4)
[2018-06-13] MEDS ORDERED: NS 1,000 ML IV SCH (14:42)
[2018-06-13] MEDS ORDERED: IPRATROPIUM 0.5MG/ALBUTEROL 2.5MG INH SOL UD 3ML (DUONEB)(J7620) NEB PRN (15:00)
[2018-06-13] MEDS: AZITHROMYCIN INJ 500 MG, VIAL MATE ADAPTER 1 EACH in D5W 250 ML IV SCH (15:19)
--- NOTE | 2018-06-13 15:37 | HPE ---
DATE OF ADMISSION: 06/13/2018 62-year-old female with past medical history of obesity, hyperventilation syndrome, chronic kidney disease (CKD) III, diabetes, hypertension, chronic diastolic heart failure, who presents to the emergency room from [facility] due to obtundation noted around noon by the staff. Patient apparently had a similar occurrence a few weeks ago. She was admitted for hypercapnic respiratory failure. Again, an ABG was done and her pCO2 was found to be 175, pH of 7.05 and again she is in hypercapnic respiratory failure with obtundation. No history obviously could be obtained from the patient. Chest x-ray shows likely bilateral lower lobe infiltrates, left greater than right. She will be admitted for further management. PAST MEDICAL HISTORY: Obesity. Hyperventilation syndrome. Hypertension. Diabetes. Chronic diastolic heart failure. Hypothyroidism. Hyperlipidemia. Chronic oxygen dependent chronic obstructive pulmonary disease (COPD). Depression. History of coronary artery disease, status post stent placement in 2012. ALLERGIES: DEXTROMETHORPHAN, HYDROCODONE. FAMILY HISTORY: Cannot be assessed. Patient obtunded. SOCIAL HISTORY: Cannot be assessed. Patient is obtunded. MEDICATIONS SHE TAKES AT HOME: Are as follows: - Tylenol 650 by mouth every 6 as needed - albuterol 1 puff inhaled every 4 as needed - atorvastatin 80 mg orally at bedtime - Plavix 75 mg orally daily - diphenhydramine 25 mg orally every 8 hours as needed - ergocalciferol 50,000 units by mouth as directed - ezetimibe 10 mg orally at bedtime - fenofibrate 67 mg orally daily - Breo Ellipta 100/25 mcg 1 puff inhaled daily - Lasix 40 mg orally daily - insulin glargine 20 units subcutaneous in the morning - Synthroid 75 mcg orally daily - linagliptin base 5 mg orally at bedtime - loperamide 2 mg orally four times a day as needed - metoprolol 25 mg orally twice daily - oxybutynin 50 mg orally daily - potassium chloride 10 mEq orally daily - senna 1 tablet orally daily - sertraline 150 mg orally daily - tiotropium bromide 2 inhalations at bedtime REVIEW OF SYSTEMS: Cannot be assessed. Patient is obtunded. VITAL SIGNS: Blood pressure is 105/56, heart rate is 96 and regular. Respiratory rate 27, temperature is 98.7. Oxygen saturation is 98% on BiPAP at a FiO2 of 100%. Head: Atraumatic. Normocephalic. Neck: Supple. No jugular venous distention (JVD). Lungs: Have diminished breath sounds left base. S1, S2 audible. No murmurs appreciated. Abdomen: Soft, positive bowel sounds. No pedal edema. Skin: Intact. Neurological examination: Patient is obtunded. LABS: WBC 12.1, hemoglobin is 11.5, hematocrit 45.5, platelets are 269,000. Sodium 142, potassium 4.5, chloride 95, CO2 44, BUN 30, creatinine 1.55. Fasting glucose 317, troponin 0.02. Arterial blood gas pH 7.052. PCO2 176.1, pO2 is 141.3. IMPRESSION: 1. Acute hypercapnic respiratory failure. 2. Community acquired pneumonia. 3. COPD exacerbation. PLAN: Patient is to be admitted to the ICU. Will continue BiPAP at this time to reverse the hypercapnia and Dr. Paredes will help us with the BiPAP settings. Will start the patient on IV Rocephin, Zithromax and Solu-Medrol 40 IV every 8. I am going to keep her nothing by mouth (npo) including medications because she is obtunded. I will give her Synthroid IV and will also give her Lasix in the IV form. Will continue following her care in the ICU. Total critical care time: 30 minutes. JOSE
[2018-06-13] MEDS ORDERED: NS 500 ML IV ONE (16:15)
[2018-06-13] MEDS: cefTRIAXone SOD 1 GM in D5W MINI-BAG PLUS 50 ML IV SCH (16:20)
--- NOTE | 2018-06-13 16:23 | CCN ---
DATE: 06/13/2018 15:08 I was called to the ER to attend Phyllis Tinsley. Patient has been examined, chart reviewed. I have spoken in length with the ER regarding her current status. In essence this is a 62-year-old female who is a DO NOT RESUSCITATE, DO NOT INTUBATE, with an up to date Medical Orders for Life-Sustaining Treatment (MOLST) form. She is agreeable to noninvasive support. She has significant restrictive and detention impairment secondary to body habitus. She has known underlying asthma and severe underlying obstructive sleep apnea for which she is completely non compliant with non invasive support at home. She has had a similar admission weeks ago. She was brought in due to decreased mental status. She is essentially obtunded. PH of 7.052 PCo2 of 176, PO2 of 141.3. She was placed on non invasive support by the ER. Adjustments were made in that upon my arrival. Initially tidal volumes between 150 and 180 with a middle volume of 4.2 liters. After adjustments made by myself tidal volume is now 250 to 280 with a middle volume between 6.2 and 6.8 liters. FiO2 decreased from 100% down to 50% and current saturation reading 95% Sio2. Repeat blood gas is pending. On exam she responds only to noxious stimuli. Pupils do reactive. Sclerae are clear. Trache is in the midline. Heart rate 95 with a sinus mechanism, blood pressure 120 systolic, respiratory rate 16 to 18 without accessory muscle use. HEENT shows pupils as outlined above. Sclerae is clear. Trachea is midline. Chest shows diminished but symmetric expansion. There are crackles at the bases left greater than right but no convincing rub. No obvious rhonchi. Cardiac exam is regular. Peripheral pulses are palpable. There is at least trace pitting lower extremity edema bilaterally. Abdomen morbidly obese. Soft, active bowel sounds. Extremities show no cyanosis or clubbing. Neurologically as outlined above. Chest x-ray shows what I believe to be a left lower lobe infiltrate but suboptimal inspiratory effort and some vascular crowding with cardiomegaly. Other laboratories show a white blood cell count of 12.1, hemoglobin 11.5, platelet count of 269,000. 88% segmented neutrophils, no bands. Sodium 142, K4 0.5, chloride 95, CO2 44, BUN 30, creatinine 1.55, troponin is negative. Glucose 317. Coag is unremarkable. Lactic acid 1.5. MOST PRESSING PROBLEMS REQUIRING MY PRESENCE AT THE BED SIDE: Acute on chronic respiratory failure both hypoxemic and hypercapnic. Restrictive and alternative impairment secondary to body habitus. Asthma. Obstructive sleep apnea with complete non compliance. At this time adjustments were made to non invasive support. She has an active and up to date Medical Orders for Life-Sustaining Treatment (MOLST) form and clearly does not wish to be intubated and ventilated. We will honor that. We will attempt to the do the best we can with non invasive support. She has a Crocker in place. She is being diuresed. I am in agreement with steroids, aerosol and empiric antimicrobials especially in view of her x-ray findings. Overall her prognosis guarded at best. Her long time prognosis is quite poor in view of her continued non compliance with essentially all prescribed treatment. We will follow the above plan. We await a repeat blood gas. Further recommendations will be made as information becomes available. I left the bed side at 15:45 hours. 37 minutes of critical care time at the bed side not including procedures.
[2018-06-13 16:50] LABS: ABG BASE EXCESS 8.6 (-2.0-2.0); ABG HCO3 42.7 MEQ/L (22.0-26.0); ABG O2 SATURATION 52.3 % (95.0-99.0); ABG STANDARD HCO3 31.4 MEQ/L (22.0-26.0); ABG TOTAL CO2 47.5 MEQ/L (23.0-31.0)
[2018-06-13 16:54] LABS: ABG pH (ARTERIAL) 7.055 UNITS (7.350-7.450)
[2018-06-13 16:55] LABS: ABG PARTIAL PRESSURE CO2 156.2 mmHg (35.0-45.0)
[2018-06-13 16:56] LABS: ABG PARTIAL PRESSURE O2 35.6 mmHg (75.0-100.0)
[2018-06-13 18:11] LABS: ABG HCO3 47.6 MEQ/L (22.0-26.0); ABG O2 SATURATION 95.9 % (95.0-99.0); ABG PARTIAL PRESSURE O2 95.7 mmHg (75.0-100.0); ABG STANDARD HCO3 35.7 MEQ/L (22.0-26.0); ABG TOTAL CO2 52.9 MEQ/L (23.0-31.0)
[2018-06-13 18:13] LABS: ABG PARTIAL PRESSURE CO2 172.5 mmHg (35.0-45.0); ABG pH (ARTERIAL) 7.059 UNITS (7.350-7.450)
[2018-06-13] MEDS ORDERED: GLUCAGON FOR INJ 1 MG VIAL (J1610) SC PRN (20:30)
[2018-06-13] MEDS ORDERED: GLUCOSE 4 GM CHEW TABLET PO PRN (20:30)
[2018-06-13] MEDS ORDERED: DEXTROSE 50% 50 ML SYRINGE IV PRN (20:30)
[2018-06-13] MEDS ORDERED: NS 1,000 ML IV ONE (20:30)
[2018-06-13] MEDS: HumaLOG INSULIN (NovoLOG) PER UNIT SC SCH (20:41)
[2018-06-13] MEDS: methylPREDNISolone INJ 40 MG/1 ML VIAL (J2920) IV SCH (20:42)
[2018-06-13] MEDS: NYSTATIN 100,000 UNITS/GM TOPICAL PWD 15 GM TOP SCH (20:45)
[2018-06-13] MEDS: NS 1,000 ML IV SCH (22:45)
[2018-06-14] VITALS (21 sets, daily range): BP systolic 81–133; BP diastolic 52–61
[2018-06-14] MEDS ORDERED: NS 1,000 ML IV ONE (00:15)
[2018-06-14] MEDS: HumaLOG INSULIN (NovoLOG) PER UNIT SC SCH ×4 (00:45→17:34)
[2018-06-14] MEDS: NS 1,000 ML IV SCH (03:45)
[2018-06-14 04:42] LABS: BASO % 0.1 % (0.0-1.0); HEMATOCRIT 40.3 % (36.0-47.0); LYMPH # 0.3 10^3/uL (1.5-4.5); LYMPH % 2.9 % (24.0-44.0); MEAN CORPUSCULAR HGB CONC 24.8 g/dl (32.0-36.5); MEAN CORPUSCULAR VOLUME 84.5 fl (80.0-96.0); MONO # 0.4 10^3/uL (0.0-0.8); MONO % 3.4 % (0.0-5.0); NEUTROPHILS # 9.6 10^3/uL (1.8-7.7); NEUTROPHILS % 92.3 % (36.0-66.0); PLATELET COUNT, AUTOMATED 222 10^3/uL (150-450); RED BLOOD COUNT 4.77 10^6/uL (4.00-5.40); WHITE BLOOD COUNT 10.4 10^3/uL (4.0-10.0)
[2018-06-14 05:04] LABS: CALCIUM LEVEL 8.3 MG/DL (8.8-10.2); CREATININE FOR GFR 1.65 MG/DL (0.55-1.30); GLOMERULAR FILTRATION RATE 33.3 (>45)
[2018-06-14] MEDS: methylPREDNISolone INJ 40 MG/1 ML VIAL (J2920) IV SCH (05:20)
--- NOTE | 2018-06-14 08:18 | IPNPDOC ---
Subjective Date Seen The patient was seen on 06/14/18. Subjective Chief Complaint/HPI AMS, hypoxia Events since last encounter Placed on Bipap by Pulmonology. Tolerating well. Given 60 mg IV Lasix. BP became soft and was given IVF. IVF dc'd after BP improved. Patient responding to physical and verbal stimuli. Limited responses. Unable to identify where she is. Answering yes/no questions appropriately. General: Reports: ROS Unobtainable Objective Physical Examination General Exam: Positive: Other (sleepign on bipap) Neck Exam: Positive: Supple Chest Exam: Positive: Diminished Heart Exam: Positive: Rate Normal, Normal S1, Normal S2 Abdomen Exam: Positive: BS Hypoactive, Soft; Negative: Tenderness Extremity Exam: Positive: Edema (pretibial edema BLE); Negative: Clubbing, Cyanosis Skin Exam: Positive: Rash (under left breast, fungal) Psych Exam: Positive: Other (minimal response) Assessment /Plan Problems (1) Acute on chronic respiratory failure with hypoxia and hypercapnia Status: Acute Problem Text: Pulmonology has been consulted and placed on BiPap. (2) Pneumonia Problem Text: Day #2 ceftriaxone and Azithromycin (3) Diastolic CHF, acute on chronic Problem Text: Given IV lasix 60 x1. takes 40 mg po daily at home. STRICT I/O. Echo from 08/2017: 1. Study is of difficult technical quality. 2. Normal left ventricular (LV) size with grossly preserved LV systolic function and grade 1 diastolic dysfunction. 3. Aortic sclerosis but no significant stenosis. 4. No significant mitral and tricuspid valvular disease. 5. Normal central venous pressure. 6. Unable to estimate pulmonary artery pressure. 7. Trace pericardial effusion. 8. Left pleural effusion. (4) Obstructive sleep apnea treated with bilevel positive airway pressure (BiPAP) Status: Chronic Problem Text: Non-compliant with use at home which is a contributing factor to repeated hospitalizations and poor prognosis. (5) CKD (chronic kidney disease) stage 3, GFR 30-59 ml/min Status: Chronic Problem Text: baseline Cr appears to run between 1.3-1.5 historically. Monitor Renal function with use of diuretics. (6) CAD (coronary artery disease) Status: Chronic (7) Hypertension Status: Chronic (8) Hyperlipidemia Status: Chronic (9) Morbid obesity Status: Chronic Plan/VTE VTE Prophylaxis Ordered?: Yes VS, I&O, 24H, Fishbone Vital Signs/I&O Vital Signs Date Time Temp Pulse Resp B/P (MAP) Pulse Ox O2 Delivery O2 Flow Rate FiO2 06/14/18 07:30 50 06/14/18 07:30 98.7 80 27 120/57 (78) 94 06/13/18 17:15 NIPPV (BIPAP/CPAP) I&O- Last 24 Hours up to 6 AM 06/14/18 06:00 Intake Total 3655 ml Output Total 390 ml Balance 3265 ml Laboratory Data 24H LABS Laboratory Tests 2 06/13/18 12:51: Blood Gas Bicarbonate Standard 35.4H, Arterial Blood pH 7.052*L, Arterial Blood Partial Pressure CO2 176.1*H, Arterial Blood Partial Pressure O2 141.3H, A rterial Blood Total CO2 53.3H, Arterial Blood HCO3 47.9H, Arterial Blood Base Excess 11.6H, Arterial Blood Oxygen Saturation 98.2 06/13/18 12:57: Prothrombin Time 13.3, Prothromb Time International Ratio 1.00 06/13/18 12:58: Immature Granulocyte % (Auto) 3.6H, White Blood Count 12.1H, Red Blood Count 5.49H, Hemoglobin 11.5L, Hematocrit 45.5, Mean Corpuscular Volume 82.9, Mean Corpuscular Hemoglobin 20.9L, Mean Corpuscular Hemoglobin Concent 25.3L, Red Ce ll Distribution Width 20.8H, Platelet Count 269, Neutrophils (%) (Auto) 88.8H, Lymphocytes (%) (Auto) 3.1L, Monocytes (%) (Auto) 4.1, Eosinophils (%) (Auto) 0.0, Basophils (%) (Auto) 0.4, Neutrophils # (Auto) 10.7H, Lymphocytes # (Auto) 0.4L, Monocytes # (Auto) 0.5, Eosinophils # (Auto) 0.0, Basophils # (Auto) 0.1, Nucleated Red Blood Cells % (auto) 0.3H, Anion Gap 3L, Glomerular Filtration Rate 35.8L, Lactic Acid Level 1.5, Calcium Level 9.1, Aspartate Amino Transf (AST/SGOT) 23, Alanine Aminotransferase (ALT/SGPT) 29, Alkaline Phosphatase 98, Total Bilirubin 0.3, Direct Bilirubin 0.2, Total Creatine Kinase 48, Creatine Kinase MB 3.0, Creatine Kinase MB Relative Index 6.25H, Troponin I 0.02, Total Protein 7.6, Albumin 3.3, Albumin/Globulin Ratio 0.77L 06/13/18 16:35: Blood Gas Bicarbonate Standard 31.4H, Arterial Blood pH 7.055*L, Arterial Blood Partial Pressure CO2 156.2*H, Arterial Blood Partial Pressure O2 35.6*L, Arterial Blood Total CO2 47.5H, Arterial Blood HCO3 42.7H, Arterial Blood Base Excess 8.6H, Arterial Blood Oxygen Saturation 52.3L 06/13/18 17:57: Blood Gas Bicarbonate Standard 35.7H, Arterial Blood pH 7.059*L, Arterial Blood Partial Pressure CO2 172.5*H, Arterial Blood Partial Pressure O2 95.7, Arterial Blood Total CO2 52.9H, Arterial Blood HCO3 47.6H, Arterial Blood Base Excess 12.0H, Arterial Blood Oxygen Saturation 95.9 06/13/18 20:37: Bedside Glucose (Misc Panel) 299H 06/14/18 00:03: Bedside Glucose (Misc Panel) 202H 06/14/18 04:27: Immature Granulocyte % (Auto) 1.3, White Blood Count 10.4H, Red Blood Count 4.77, Hemoglobin 10.0L, Hematocrit 40.3, Mean Corpuscular Volume 84.5, Mean Corpuscular Hemoglobin 21.0L, Mean Corpuscular Hemoglobin Concent 24.8L, Red Cell Distribution Width 20.5H, Platelet Count 222, Neutrophils (%) (Auto) 92.3H, Lymphocytes (%) (Auto) 2.9L, Monocytes (%) (Auto) 3.4, Eosinophils (%) (Auto) 0.0, Basophils (%) (Auto) 0.1, Neutrophils # (Auto) 9.6H, Lymphocytes # (Auto) 0.3L, Monocytes # (Auto) 0.4, Eosinophils # (Auto) 0.0, Basophils # (Auto) 0.0, Nucleated Red Blood Cells % (auto) 0.3H, Anion Gap 1L, Glomerular Filtration Rate 33.3L, Blood Urea Nitrogen 38H, Creatinine 1.65H, Sodium Level 143, Potassium Level 5.0, Chloride Level 101, Carbon Dioxide Level 41H, Calcium Level 8.3L CBC/BMP Laboratory Tests 06/13/18 12:58 Red Blood Count 5.49 H, Mean Corpuscular Volume 82.9, Mean Corpuscular Hemo globin 20.9 L, Mean Corpuscular Hemoglobin Concent 25.3 L, Red Cell Distribution Width 20.8 H, Neutrophils (%) (Auto) 88.8 H, Lymphocytes (%) (Auto) 3.1 L, Monocytes (%) (Auto) 4.1, Eosinophils (%) (Auto) 0.0, Basophils (%) (Auto) 0.4, Neutrophils # (Auto) 10.7 H, Lymphocytes # (Auto) 0.4 L, Monocytes # (Auto) 0.5, Eosinophils # (Auto) 0.0, Basophils # (Auto) 0.1 06/14/18 04:27 Red Blood Count 4.77, Mean Corpuscular Volume 84.5, Mean Corpuscular Hemoglobin 21.0 L, Mean Corpuscular Hemoglobin Concent 24.8 L, Red Cell Distribution Width 20.5 H, Neutrophils (%) (Auto) 92.3 H, Lymphocytes (%) (Auto) 2.9 L, Monocytes (%) (Auto) 3.4, Eosinophils (%) (Auto) 0.0, Basophils (%) (Auto) 0.1, Neutrophils # (Auto) 9.6 H, Lymphocytes # (Auto) 0.3 L, Monocytes # (Auto) 0.4, Eosinophils # (Auto) 0.0, Basophils # (Auto) 0.0, Calcium Level 8.3 L Microbiology Microbiology 06/13/18 Blood Culture, Received Pending 06/13/18 Blood Culture, Received Pending Sheryl Espinosa [employer] Jun 14, 2018 08:18
[2018-06-14 08:23] LABS: ABG BASE EXCESS 6.3 (-2.0-2.0); ABG HCO3 39.1 MEQ/L (22.0-26.0); ABG O2 SATURATION 96.4 % (95.0-99.0); ABG PARTIAL PRESSURE O2 93.7 mmHg (75.0-100.0); ABG STANDARD HCO3 30.2 MEQ/L (22.0-26.0); ABG TOTAL CO2 42.9 MEQ/L (23.0-31.0)
[2018-06-14 08:27] LABS: ABG PARTIAL PRESSURE CO2 123.3 mmHg (35.0-45.0); ABG pH (ARTERIAL) 7.119 UNITS (7.350-7.450)
[2018-06-14] MEDS: IPRATROPIUM 0.5MG/ALBUTEROL 2.5MG INH SOL UD 3ML (DUONEB)(J7620) NEB PRN (08:59)
[2018-06-14] MEDS ORDERED: PANTOPRAZOLE 40MG INJ (PROTONIX) (C9113) IV SCH (09:00)
[2018-06-14] MEDS ORDERED: LEVOTHYROXINE 100 MCG (0.1MG) VIAL IV SCH (09:00)
[2018-06-14] MEDS ORDERED: FUROSEMIDE 20 MG/2 ML VIAL (J1940) IV SCH (09:00)
[2018-06-14] MEDS: NYSTATIN 100,000 UNITS/GM TOPICAL PWD 15 GM TOP SCH ×2 (09:48→21:18)
[2018-06-14] MEDS: HEPARIN SOD (PORCINE) 5000 UNITS/ML VIAL SQ SCH ×2 (09:48→21:18)
--- NOTE | 2018-06-14 10:35 | CCN ---
DATE: 06/14/2018 START TIME: 929 STOP TIME: 1007 I again attended Phyllis Brooks here in the intensive care unit. The patient has been examined, the chart reviewed. Maximum temperature (T-max) overnight 99 degrees, blood pressure 80-120s. She has not required vasopressors. Heart rate 70-80s with a sinus mechanism. Respiratory rate generally in the 20s without evidence of accessory muscle use. 2255 mL in to midnight with about 260 out. Most recent laboratory: White blood cell count of 10.4, hemoglobin 10.0, platelet count 222,000, 92% segmented neutrophils, no bands. Sodium 143, potassium 5.0, chloride 101, CO2 41, BUN 38, creatinine 1.65 only minimally elevated compared to yesterday. Glucose down to 153. Blood gas done this morning on noninvasive support, inspiratory pressure of 22, expiratory pressure 6, rate of 8, FiO2 of 50% has a pH 7.119, pO2 123.3 and a pO2 93.7. pCO2 down from a high of 176 yesterday. On exam, she is sedate but arousable this morning. She does answer questions and follows some commands. Pupils do react, sclerae are clear. Trachea is generally in the midline. Chest shows diminished but symmetric expansion. There is some end expiratory wheeze. Her basilar crackles are unchanged, left, mildly greater than right. Cardiac exam distant but regular. Peripheral pulse palpable with no obvious edema. Abdomen obese, soft, with active bowel sounds. No convincing organomegaly or masses. Extremities without cyanosis or clubbing. Neurologically, she is sedate. Moves all extremities but does respond appropriately to questioning. Also deep venous thrombosis prophylaxis in place. MEDICATIONS: List has been reviewed. She remains on Rocephin and azithromycin as well as nebulizers and IV Solu-Medrol. Most pressing problems requiring my presence at the bedside: 1. Acute on chronic respiratory failure with hypoxemic and hypercapnic. 2. Restrictive ventilatory impairment secondary to body habitus. 3. Underlying asthma. 4. Obstructive sleep apnea with noncompliance with prescribed therapy. At this point, attempts were made to adjust her noninvasive support, especially in view of her wheezing but with any increase in her expiratory pressure, she had a significant drop off in her tidal volumes. When she is stimulated, she increased her tidal volume by almost 200 mL, so at lease for now until we can get this a little better regarding her CO2 retention. Will try to continue to do that. We will honor her DO NOT RESUSCITATE/DO NOT INTUBATE status. Oxygenation is quite reasonable and we will diminish her FiO2 as we are able. She continues on empiric antibiotics. Steroids and aerosols will be continued. Overall, her prognosis remains guarded at best, both short and long-term especially in view of he comorbid diseases and the fact that she is completely noncompliant with therapy as an outpatient. We will continue as outlined above. Will repeat a blood gas in several hours to see if we are making progress. I left the bedside at 1007 hours. 37 minutes of critical care time at the bedside not including procedures.
[2018-06-14] MEDS: IPRATROPIUM 0.5MG/ALBUTEROL 2.5MG INH SOL UD 3ML (DUONEB)(J7620) NEB SCH ×3 (12:00→20:55)
[2018-06-14 12:11] LABS: ABG BASE EXCESS 14.5 (-2.0-2.0); ABG HCO3 47.2 MEQ/L (22.0-26.0); ABG O2 SATURATION 96.5 % (95.0-99.0); ABG STANDARD HCO3 38.3 MEQ/L (22.0-26.0); ABG TOTAL CO2 51.2 MEQ/L (23.0-31.0)
[2018-06-14 12:16] LABS: ABG pH (ARTERIAL) 7.174 UNITS (7.350-7.450)
[2018-06-14 12:17] LABS: ABG PARTIAL PRESSURE CO2 131.2 mmHg (35.0-45.0)
[2018-06-14] MEDS: methylPREDNISolone INJ 125 MG/2 ML VIAL (J2930) IV SCH ×2 (12:34→21:17)
[2018-06-14] MEDS: AZITHROMYCIN INJ 500 MG, VIAL MATE ADAPTER 1 EACH in D5W 250 ML IV SCH (16:11)
[2018-06-14] MEDS: cefTRIAXone SOD 1 GM in D5W MINI-BAG PLUS 50 ML IV SCH (17:34)
[2018-06-14 20:49] LABS: CALCIUM LEVEL 8.7 MG/DL (8.8-10.2); CREATININE FOR GFR 1.55 MG/DL (0.55-1.30); GLOMERULAR FILTRATION RATE 35.8 (>45); MAGNESIUM LEVEL 2.2 MG/DL (1.8-2.4); POTASSIUM SERUM 4.4 MEQ/L (3.5-5.1)
[2018-06-14] MEDS ORDERED: METOPROLOL 5 MG/5 ML VIAL IV STA (21:02)
[2018-06-14] MEDS: METOPROLOL TART 25 MG TABLET PO SCH (21:19)
[2018-06-15] VITALS (20 sets, daily range): BP systolic 109–172; BP diastolic 55–73; O2SAT 96–98
[2018-06-15] MEDS: HumaLOG INSULIN (NovoLOG) PER UNIT SC SCH ×5 (00:03→20:01)
[2018-06-15] MEDS: IPRATROPIUM 0.5MG/ALBUTEROL 2.5MG INH SOL UD 3ML (DUONEB)(J7620) NEB SCH ×7 (00:11→23:20)
--- NOTE | 2018-06-15 00:35 | ECGEPIP ---
Stationary ECG Study 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
[2018-06-15] MEDS ORDERED: METOPROLOL TART 25 MG TABLET PO ONE (01:15)
[2018-06-15] MEDS ORDERED: PILL CRUSHER/CUTTER 1 EACH XX PRN (01:30)
[2018-06-15 04:25] LABS: HEMATOCRIT 36.2 % (36.0-47.0); HEMOGLOBIN 9.5 g/dl (12.0-15.5); LYMPH # 0.3 10^3/uL (1.5-4.5); LYMPH % 3.1 % (24.0-44.0); MEAN CORPUSCULAR HGB CONC 26.2 g/dl (32.0-36.5); MEAN CORPUSCULAR VOLUME 80.1 fl (80.0-96.0); MONO # 0.2 10^3/uL (0.0-0.8); MONO % 2.4 % (0.0-5.0); NEUTROPHILS # 8.3 10^3/uL (1.8-7.7); NEUTROPHILS % 93.7 % (36.0-66.0); PLATELET COUNT, AUTOMATED 211 10^3/uL (150-450); RED BLOOD COUNT 4.52 10^6/uL (4.00-5.40); WHITE BLOOD COUNT 8.8 10^3/uL (4.0-10.0)
[2018-06-15 04:51] LABS: ALBUMIN 2.6 GM/DL (3.2-5.2); BILIRUBIN,TOTAL 0.2 MG/DL (0.2-1.0); CREATININE FOR GFR 1.31 MG/DL (0.55-1.30); GLOMERULAR FILTRATION RATE 43.5 (>45); POTASSIUM SERUM 4.6 MEQ/L (3.5-5.1); TOTAL PROTEIN 6.1 GM/DL (6.4-8.2)
[2018-06-15] MEDS: methylPREDNISolone INJ 125 MG/2 ML VIAL (J2930) IV SCH (05:11)
[2018-06-15] MEDS: METOPROLOL TART 25 MG TABLET PO SCH (07:53)
[2018-06-15 08:26] LABS: ABG HCO3 43.7 MEQ/L (22.0-26.0); ABG O2 SATURATION 97.2 % (95.0-99.0); ABG PARTIAL PRESSURE O2 93.4 mmHg (75.0-100.0); ABG STANDARD HCO3 37.8 MEQ/L (22.0-26.0); ABG TOTAL CO2 46.5 MEQ/L (23.0-31.0); ABG pH (ARTERIAL) 7.301 UNITS (7.350-7.450)
[2018-06-15 08:27] LABS: ABG PARTIAL PRESSURE CO2 90.6 mmHg (35.0-45.0)
[2018-06-15] MEDS: LEVOTHYROXINE 75MCG TABLET (0.075MG) PO SCH (10:36)
[2018-06-15] MEDS: PANTOPRAZOLE 40MG TAB (PROTONIX) PO SCH (10:36)
[2018-06-15] MEDS: NYSTATIN 100,000 UNITS/GM TOPICAL PWD 15 GM TOP SCH ×2 (10:36→20:04)
[2018-06-15] MEDS: HEPARIN SOD (PORCINE) 5000 UNITS/ML VIAL SQ SCH ×2 (10:37→20:04)
--- NOTE | 2018-06-15 11:07 | CCN ---
DATE: 06/15/2018 Phyllis remains on bilevel noninvasive therapy with minimal increase in pH and decrease in pCO2. She has known chronic hypercarbic hypoxic respiratory failure secondary to hypoventilation. She has had hypoventilation for a number of years. However, she presents with acute hypoxic hypercarbic respiratory failure. However, she is noncompliant with her bilevel. She does have BiPap at home. She does not wear it. I explained to her that this is likely the cause of her hospitalization. She has known restrictive lung disease probably from an undiagnosed congenital defect. Her spirometry has been severely restricted for a number of years. I do not have any history of chronic obstructive pulmonary disease (COPD) or evidence of air flow obstruction, but there was some concern for the possibility of asthma given her wheeze. She has intermittent supraventricular tachycardia (SVT)/atrial flutter with a heart rate of 150 that spontaneously breaks. She has been on metoprolol 25 mg by mouth twice a day. She has cardiomegaly on chest x-ray and has not had an echocardiogram any time recently that I am able to tell. She is on high-dose Solu-Medrol currently along with ceftriaxone and azithromycin. Ins and outs over the past 24 hours are 1725 in and 1195 out, positive 530. PHYSICAL EXAMINATION: Pulse is 86. Blood pressure is 156/72 with mean arterial pressure of 100. Oxygen saturation 97% on 0.40 FIO2 while on bilevel noninvasive therapy. Respiratory rate is 20 and temperature was 97.9. General: The patient is awake, alert, conversant. She is oriented to person and place. She recognizes me, but is unable to recall my name, but I have not seen her in likely a year. HEENT: Sclerae clear and anicteric. Pupils equal, react to light. Mucous membranes are moist, without lesions. Oropharynx is crowded. Mallampati four. Tongue is midline. Neck is supple, but webbed. Large circumference. There is no evidence of thyromegaly. Lymphs: No cervical, supraclavicular or axillary adenopathy. Cardiac: Distant S1 and S2. PMI is displaced laterally. Pulmonary: Clear to auscultation without rales, rhonchi or wheezes. Poor chest expansion. No dullness to percussion. Abdomen is obese, soft, nontender, nondistended. No splenomegaly, masses or hernia. Extremities: No cyanosis or clubbing. Thromboembolic deterrent stockings (TEDS) and Kendalls are in place. Skin: No jaundice or rashes. No significant bruising. LABORATORY EVALUATION: Shows a sodium 143, potassium 4.6, chloride 100, bicarb of 42, BUN of 39, creatinine 1.31. White blood cell count is 8.8, hemoglobin is 9.5 which is lower than yesterday with a hematocrit of 36.2 and a platelet count of 211. Albumin is 2.6. Blood gas shows a pH of 7.30, pCO2 of 91 and a pAO2 of 93. IMPRESSION AND PLAN: Acute on chronic hypercarbic hypoxic respiratory failure secondary to hypoventilation with a likely component of cardiomegaly and congestive heart failure. 1. Chronic hypercarbic hypoxic respiratory failure. The patient will require consistent use of bilevel noninvasive therapy here and at home. If she is unable to do this, she may want to consider tracheostomy versus palliative care. The patient even with tracheostomy may require nocturnal mechanical ventilation. I think the patient has very poor insight into her current medical condition as this has been explained to her on numerous occasions in the past that she requires the use of her bilevel noninvasive therapy. 2. Possible history of asthma. Currently, no evidence of exacerbation. Will decrease Solu-Medrol and change it to prednisone. Will allow patient breaks off bilevel therapy. If the patient truly has asthma, metoprolol may have to be switched to a calcium channel donald for rate control. 3. Antibiotic de-escalation. I think the patient could de-escalated on her antibiotics as I do not believe she has an acute infection. Blood cultures show no growth. 4. Cardiomegaly with probable underlying heart failure. Will be difficult to diurese in the face of chronic hypercarbic respiratory failure as her bicarb is already quite elevated. TTE ordered. 5. Anemia, unknown etiology. No evidence of acute hemorrhage. 6. Gastrointestinal (GI). Will start clear diet. Monitor for fluid overload. Allow patient breaks off BiPap. PROGNOSIS: Overall prognosis extremely guarded as the patient has chronic hypoxic hypercarbic respiratory failure. She is DO NOT RESUSCITATE (DNR) and therefore her therapeutic options are limited. I believe this is acute on chronic and the patient will have to make a decision whether or not she wants to use her noninvasive ventilation at home or to progress to tracheostomy with mechanical ventilation or comfort measures. JOSE
--- NOTE | 2018-06-15 11:09 | IPNPDOC ---
Subjective Date Seen The patient was seen on 06/15/18. Subjective Chief Complaint/HPI Pt tells me this morning that she feels good. She denies feeling SOB. She denies any pain. She is adament that she wears her Bipap mask at home. Nursing reports irreg heart rhythm on tele. General: Denies: Fatigue Constitutional: Denies: Chills ENT: Denies: Head Aches Pulmonary: Denies: Dyspnea, Cough Cardiovascular: Denies: Chest Pain, Palpitations Gastrointestinal: Denies: Nausea, Vomiting, Diarrhea Neurological: Denies: Weakness Psych: Reports: Mood Normal Objective Physical Examination General Exam: Positive: Alert, No Acute Distress, Other (sleepign on bipap) ENT Exam: Positive: Mucous membr. moist/pink Neck Exam: Positive: Supple Chest Exam: Positive: Diminished; Negative: Clear to auscultation, Normal air movement Heart Exam: Positive: Rate Normal, Normal S1, Normal S2 Abdomen Exam: Positive: Normal bowel sounds, Soft; Negative: Tenderness Extremity Exam: Positive: Edema (trace pretibial edema BLE); Negative: Clubbing, Cyanosis Skin Exam: Positive: Rash (under left breast, fungal) Assessment /Plan Problems (1) Acute on chronic respiratory failure with hypoxia and hypercapnia Status: Acute Problem Text: 06/15 Pulm cont to manage BiPap. Resp status stable. Pulm suggests no pneumonia, will d/c IV abx, monitor. 06/14 Pulmonology has been consulted and placed on BiPap. (2) Pneumonia Problem Text: Completed 2 days of rocephin/azithromycin, will d/c since low suspicion for abx. (3) Diastolic CHF, acute on chronic Problem Text: 06/15 Follows I&Os. Appears stable today. Repeat ECHO ordered. Metoprolol changed to diltiazem. 06/14 Given IV lasix 60 x1. takes 40 mg po daily at home. STRICT I/O. Echo from 08/2017: 1. Study is of difficult technical quality. 2. Normal left ventricular (LV) size with grossly preserved LV systolic function and grade 1 diastolic dysfunction. 3. Aortic sclerosis but no significant stenosis. 4. No significant mitral and tricuspid valvular disease. 5. Normal central venous pressure. 6. Unable to estimate pulmonary artery pressure. 7. Trace pericardial effusion. 8. Left pleural effusion. (4) Obstructive sleep apnea treated with bilevel positive airway pressure (BiPAP) Status: Chronic Problem Text: Non-compliant with use at home which is a contributing factor to repeated hospitalizations and poor prognosis. (5) CKD (chronic kidney disease) stage 3, GFR 30-59 ml/min Status: Chronic Problem Text: baseline Cr appears to run between 1.3-1.5 historically. Monitor Renal function with use of diuretics. (6) CAD (coronary artery disease) Status: Chronic (7) Hypertension Status: Chronic (8) Hyperlipidemia Status: Chronic (9) Morbid obesity Status: Chronic Plan/VTE VTE Prophylaxis Ordered?: Yes VS, I&O, 24H, Fishbone Vital Signs/I&O Vital Signs Date Time Temp Pulse Resp B/P (MAP) Pulse Ox O2 Delivery O2 Flow Rate FiO2 06/15/18 10:05 80 131/64 (86) 96 40 06/15/18 08:00 97.9 20 06/15/18 07:34 BIPAP/CPAP I&O- Last 24 Hours up to 6 AM 06/15/18 06:00 Intake Total 365 ml Output Total 1350 ml Balance -985 ml Laboratory Data 24H LABS Laboratory Tests 2 06/14/18 12:04: Blood Gas Bicarbonate Standard 38.3H, Arterial Blood pH 7.174*L, Arterial Blood Partial Pressure CO2 131.2*H, Arterial Blood Partial Pressure O2 91.0, Arterial Blood Total CO2 51.2H, Arterial Blood HCO3 47.2H, Arterial Blood Base Excess 14.5H, Arterial Blood Oxygen Saturation 96.5 06/14/18 12:15: Bedside Glucose (Misc Panel) 138H 06/14/18 17:29: Bedside Glucose (Misc Panel) 209H 06/14/18 20:24: Anion Gap 2L, Glomerular Filtration Rate 35.8L, Blood Urea Nitrogen 40H, Creatinine 1.55H, Sodium Level 143, Potassium Level 4.4, Chloride Level 100, Carbon Dioxide Level 41H, Calcium Level 8.7L, Magnesium Level 2.2 06/14/18 23:59: Bedside Glucose (Misc Panel) 182H 06/15/18 03:55: Immature Granulocyte % (Auto) 0.8, White Blood Count 8.8, Red Blood Count 4.52, Hemoglobin 9.5L, Hematocrit 36.2, Mean Corpuscular Volume 80.1, Mean Corpuscular Hemoglobin 21.0L, Mean Corpuscular Hemoglobin Concent 26.2L, Red Cell Distribution Width 20.3H, Platelet Count 211, Neutrophils (%) (Auto) 93.7H, Lymphocytes (%) (Auto) 3.1L, Monocytes (%) (Auto) 2.4, Eosinophils (%) (Auto) 0.0, Basophils (%) (Auto) 0.0, Neutrophils # (Auto) 8.3H, Lymphocytes # (Auto) 0.3L, Monocytes # (Auto) 0.2, Eosinophils # (Auto) 0.0, Basophils # (Auto) 0.0, Nucleated Red Blood Cells % (auto) 0.2H, Anion Gap 1L, Glomerular Filtration Rate 43.5L, Blood Urea Nitrogen 39H, Creatinine 1.31H, Sodium Level 143, Potassium Level 4.6, Chloride Level 100, Carbon Dioxide Level 42H, Calcium Level 9.0, Aspartate Amino Transf (AST/SGOT) 17, Alanine Aminotransferase (ALT/SGPT) 20, Alkaline Phosphatase 73, Total Bilirubin 0.2, Total Protein 6.1L, Albumin 2.6#L, Albumin/Globulin Ratio 0.74L 06/15/18 08:13: Blood Gas Bicarbonate Standard 37.8H, Arterial Blood pH 7.301L, Arterial Blood Partial Pressure CO2 90.6*H, Arterial Blood Partial Pressure O2 93.4, Arterial Blood Total CO2 46.5H, Arterial Blood HCO3 43.7H, Arterial Blood Base Excess 14.0H, Arterial Blood Oxygen Saturation 97.2 CBC/BMP Laboratory Tests 06/14/18 20:24 Calcium Level 8.7 L 06/15/18 03:55 Calcium Level 9.0, Red Blood Count 4.52, Mean Corpuscular Volume 80.1, Mean Corpuscular Hemoglobin 21.0 L, Mean Corpuscular Hemoglobin Concent 26.2 L, Red Cell Distribution Width 20.3 H, Neutrophils (%) (Auto) 93.7 H, Lymphocytes (%) (Auto) 3.1 L, Monocytes (%) (Auto) 2.4, Eosinophils (%) (Auto) 0.0, Basophils (%) (Auto) 0.0, Neutrophils # (Auto) 8.3 H, Lymphocytes # (Auto) 0.3 L, Monocytes # (Auto) 0.2, Eosinophils # (Auto) 0.0, Basophils # (Auto) 0.0, Aspartate Amino Transf (AST/SGOT) 17, Alanine Aminotransferase (ALT/SGPT) 20, Alkaline Phosphatase 73, Total Bilirubin 0.2, Total Protein 6.1 L, Albumin 2.6 #L Microbiology Microbiology 06/13/18 Blood Culture - Preliminary, Resulted No growth after 24 hours . All specim... 06/13/18 Blood Culture - Preliminary, Resulted DIPESH STARR PA-C Jun 15, 2018 11:09
--- NOTE | 2018-06-15 19:21 | ECHO ---
DATE OF PROCEDURE: 06/15/2018 REFERRING PHYSICIAN: Dr. Joni Simon PRIMARY SALVAGE MECHANIC: Dr. Rob Mckeon PATIENT LOCATION: Room 3207 REASON FOR ECHOCARDIOGRAM: Cardiomegaly. 2D MEASUREMENTS: IVS: 1.2 cm LV: 5.0 cm LVPW: 1.1 cm LA: 4.1 cm Aorta: 2.7 cm IVC: 2.1 cm DOPPLER MEASUREMENTS: Peak velocity across the aortic valve: 1.3 m/s Peak velocity across the LVOT: 0.96 m/s Mitral E: 1.3, Mitral A: 0.91, with a ratio of 1.3 2D COMMENTS: 1. Technically limited study due to poor acoustic window secondary to body habitus. 2. Normal ventricular size, wall thickness, and normal global left ventricular systolic function. Estimated left ventricular systolic ejection fraction is 60-65%. Mildly enlarged left atrium. The right heart chamber also appear to mildly enlarged. The ventricle seems to be constructing. 3. The atrial septum appeared to be normal without evidence of defect or shunt. 4. Normal aortic root. 5. No pericardial effusion seen. 6. Mildly calcified aortic valve with normal leaflet excursion. Mildly calcified mitral annulus with normal anterior mitral valve leaflet motion. Normal tricuspid valve. The pulmonic valve and proximal pulmonary artery branches were not well visualized. 7. The inferior vena cava was mildly enlarged, central venous pressure mildly elevated. DOPPLER: It detects no significant valvular abnormalities detected. IMPRESSION: 1. Technically limited study due to poor acoustic window secondary to body habitus. 2. Normal global left ventricular systolic function. 3. Aortic valve sclerosis with no stenosis or aortic regurgitation. There was no aortic regurgitation. 3. Mitral annulus calcification. There was a mildly dilated left atrium probably related to underlying left ventricular diastolic dysfunction. There was no mitral regurgitation or mitral stenosis. 4. The right heart chambers appear to be mildly enlarged. Conduction of the right ventricular free wall seems to be normal. No significant tricuspid regurgitation detected. 5. Mildly enlarged left atrium, central venous pressure might be elevated. MTDD
[2018-06-16] VITALS (13 sets, daily range): BP systolic 106–134; BP diastolic 49–72; O2SAT 98
[2018-06-16 05:01] LABS: ALBUMIN 2.5 GM/DL (3.2-5.2); BILIRUBIN,TOTAL 0.3 MG/DL (0.2-1.0); CALCIUM LEVEL 8.9 MG/DL (8.8-10.2); CREATININE FOR GFR 1.24 MG/DL (0.55-1.30); GLOMERULAR FILTRATION RATE 46.4 (>45); POTASSIUM SERUM 4.5 MEQ/L (3.5-5.1); TOTAL PROTEIN 5.7 GM/DL (6.4-8.2)
[2018-06-16] MEDS: IPRATROPIUM 0.5MG/ALBUTEROL 2.5MG INH SOL UD 3ML (DUONEB)(J7620) NEB SCH ×6 (05:03→23:20)
[2018-06-16 05:26] LABS: BASO % 0.1 % (0.0-1.0); HEMATOCRIT 35.1 % (36.0-47.0); HEMOGLOBIN 9.4 g/dl (12.0-15.5); LYMPH # 0.5 10^3/uL (1.5-4.5); LYMPH % 5.8 % (24.0-44.0); MEAN CORPUSCULAR HEMOGLOBIN 21.5 pg (27.0-33.0); MEAN CORPUSCULAR HGB CONC 26.8 g/dl (32.0-36.5); MEAN CORPUSCULAR VOLUME 80.1 fl (80.0-96.0); MONO # 0.5 10^3/uL (0.0-0.8); MONO % 6.1 % (0.0-5.0); NEUTROPHILS # 6.7 10^3/uL (1.8-7.7); PLATELET COUNT, AUTOMATED 184 10^3/uL (150-450); RED BLOOD COUNT 4.38 10^6/uL (4.00-5.40); WHITE BLOOD COUNT 7.7 10^3/uL (4.0-10.0)
[2018-06-16] MEDS: LEVOTHYROXINE 75MCG TABLET (0.075MG) PO SCH (05:51)
[2018-06-16] MEDS: HumaLOG INSULIN (NovoLOG) PER UNIT SC SCH ×4 (08:09→20:22)
[2018-06-16] MEDS: HEPARIN SOD (PORCINE) 5000 UNITS/ML VIAL SQ SCH ×2 (08:10→20:21)
[2018-06-16] MEDS: PANTOPRAZOLE 40MG TAB (PROTONIX) PO SCH (08:10)
[2018-06-16] MEDS: NYSTATIN 100,000 UNITS/GM TOPICAL PWD 15 GM TOP SCH ×2 (08:11→20:22)
[2018-06-16] MEDS ORDERED: predniSONE 10 MG TAB PO SCH (09:00)
--- NOTE | 2018-06-16 09:37 | IPN ---
DATE OF SERVICE: 06/16/2018 Phyllis is seen in intensive care unit (ICU). She has been having tachyarrhythmias, various rhythms, atrial fibrillation, rapid ventricular response, supraventricular tachycardia (SVT), and sinus tachycardia. We have had her on diltiazem, but she still has intermittent heart rates up into 130s. She did have a blood culture that was positive for Staphylococcus warneri, probably a contaminant, but we are rechecking the blood cultures. Clinically, she feels better. She says she is less short of breath and feels the best she has since she has been admitted. PHYSICAL EXAMINATION: 136/60, pulse of 76, goes as high as 140, 94% oxygen (O2) saturation on 2 liters. She has a pressure-support mask on. General appearance: She is resting comfortably. No distress. Alert. Conversant. No jugular venous distention (JVD). Lungs: Decreased breath sounds. Heart: Regular rate and rhythm. No murmur. Abdomen: Soft, nontender. No masses. Trace peripheral edema. 1+ peripheral edema of the dorsum of the right hand. LABORATORIES: Blood sugars are around 200. White count 7.7, hemoglobin 9.4, platelets 184. Sodium 142, potassium 4.5, BUN 42, creatinine 1.24, glucose 200. IMPRESSION: 1. Acute on chronic respiratory failure with hypoxia and hypercapnia. Appreciate pulmonary's assistance. She is still on bilateral positive airway pressure (BiPAP). She is off antibiotics. There is no sign of active infection. 2. Diastolic congestive heart failure. Echocardiogram returned showing left atrial enlargement, 41 mm, ejection fraction is 60% to 65%, aortic valve sclerosis without stenosis, mildly enlarged right heart chambers, mild diastolic dysfunction noted. 3. Staphylococcus warneri in blood culture, probably a contaminant. Repeat blood culture is ordered. There is no fever and no sign of bacteremia. 4. Acute kidney injury superimposed on chronic kidney disease. Renal function is improved with treatment of her hypoxemia. 5. Coronary artery disease, stable and asymptomatic. 6. Hypertensive heart disease. Blood pressure is under good control. We have been substituting diltiazem for her metoprolol. 7. Anemia. Probably from chronic kidney disease.
[2018-06-16] MEDS ORDERED: DIGOXIN INJ 0.5 MG/2 ML AMP (J1160) IV STA (10:03)
[2018-06-16 10:14] LABS: ABG BASE EXCESS 12.1 (-2.0-2.0); ABG HCO3 39.6 MEQ/L (22.0-26.0); ABG O2 SATURATION 96.5 % (95.0-99.0); ABG PARTIAL PRESSURE O2 83.2 mmHg (75.0-100.0); ABG STANDARD HCO3 35.8 MEQ/L (22.0-26.0); ABG TOTAL CO2 41.8 MEQ/L (23.0-31.0); ABG pH (ARTERIAL) 7.372 UNITS (7.350-7.450)
[2018-06-16 10:17] LABS: ABG PARTIAL PRESSURE CO2 69.8 mmHg (35.0-45.0)
--- NOTE | 2018-06-16 11:20 | REP ---
Clinical: Cough and dyspnea. Technique: Axial noncontrast images from the thoracic inlet to the upper abdomen with coronal and sagittal re-formations. Findings: Cardiomegaly with pulmonary vascular congestion and interstitial edema including moderate bibasilar and lingular atelectasis with small pleural reactions identified. No pericardial effusion or significant pleural effusion identified. Congenital right-sided aortic arch noted along with atherosclerotic changes to the aorta and coronary arteries. Further evaluation of the lung alexander demonstrates small focus of infiltrate in the right upper lobe. Tracheobronchial tree appears patent. No obvious adenopathy identified. Musculoskeletal structures demonstrate age-related degenerative changes. Impression: 1. Cardiomegaly with moderate pulmonary vascular congestion and interstitial edema including moderate lower lobe and lingular atelectasis. 2. Congenital right-sided aortic arch. 3. Small focus of possible infiltrate in the right upper lobe. Electronically Signed by Phillip Garcia MD 06/16/2018 11:11 A
[2018-06-16] MEDS ORDERED: FUROSEMIDE 40 MG/4 ML VIAL (J1940) IV ONE (11:30)
[2018-06-16] MEDS: DIGOXIN INJ 0.5 MG/2 ML AMP (J1160) IV SCH ×3 (13:12→20:22)
[2018-06-16] MEDS: diltiaZEM 125 MG in NS 100 ML IV SCH ×2 (14:03→14:10)
[2018-06-17] VITALS (19 sets, daily range): BP systolic 92–123; BP diastolic 48–61; O2SAT 96
[2018-06-17] MEDS: IPRATROPIUM 0.5MG/ALBUTEROL 2.5MG INH SOL UD 3ML (DUONEB)(J7620) NEB SCH ×6 (02:40→23:41)
[2018-06-17] MEDS: LEVOTHYROXINE 75MCG TABLET (0.075MG) PO SCH (05:01)
[2018-06-17 05:02] LABS: HEMATOCRIT 34.3 % (36.0-47.0); HEMOGLOBIN 9.6 g/dl (12.0-15.5); LYMPH # 0.6 10^3/uL (1.5-4.5); MEAN CORPUSCULAR HEMOGLOBIN 21.2 pg (27.0-33.0); MEAN CORPUSCULAR VOLUME 75.7 fl (80.0-96.0); MONO # 0.5 10^3/uL (0.0-0.8); MONO % 6.2 % (0.0-5.0); NEUTROPHILS # 7.2 10^3/uL (1.8-7.7); NEUTROPHILS % 85.8 % (36.0-66.0); PLATELET COUNT, AUTOMATED 168 10^3/uL (150-450); RED BLOOD COUNT 4.53 10^6/uL (4.00-5.40); WHITE BLOOD COUNT 8.4 10^3/uL (4.0-10.0)
[2018-06-17 05:19] LABS: ALBUMIN 2.7 GM/DL (3.2-5.2); BILIRUBIN,TOTAL 0.5 MG/DL (0.2-1.0); CALCIUM LEVEL 8.9 MG/DL (8.8-10.2); CREATININE FOR GFR 1.13 MG/DL (0.55-1.30); GLOMERULAR FILTRATION RATE 51.6 (>45); POTASSIUM SERUM 4.6 MEQ/L (3.5-5.1); TOTAL PROTEIN 5.8 GM/DL (6.4-8.2)
[2018-06-17] MEDS: predniSONE 10 MG TAB PO SCH (08:12)
[2018-06-17] MEDS: DIGOXIN 0.125 MG TAB PO SCH (08:12)
[2018-06-17] MEDS: PANTOPRAZOLE 40MG TAB (PROTONIX) PO SCH (08:12)
[2018-06-17] MEDS: NYSTATIN 100,000 UNITS/GM TOPICAL PWD 15 GM TOP SCH ×2 (08:13→21:27)
[2018-06-17] MEDS: HEPARIN SOD (PORCINE) 5000 UNITS/ML VIAL SQ SCH (08:13)
[2018-06-17] MEDS: HumaLOG INSULIN (NovoLOG) PER UNIT SC SCH ×4 (08:14→21:00)
--- NOTE | 2018-06-17 20:26 | IPN ---
DATE: 06/17/2018 Phyllis feels better, does not really have any specific complaints. Says she is less short of breath. She is off her pressure support today. Repeat blood cultures are negative, suggesting the Staphylococcus warneri was probably a contaminant. PHYSICAL EXAMINATION: Afebrile. Vital signs stable. HEENT: Unremarkable. LUNGS: Decreased breath sounds. HEART: Regular rate and rhythm. ABDOMEN: Soft. Nontender. EXTREMITIES: Trace peripheral edema. LABORATORIES: All blood cultures are negative. White count 8.4, hemoglobin 9.6, platelets 168. Sodium 139, potassium 4.6, BUN 38, creatinine 1.1, glucose 182. IMPRESSION: 1. Acute on chronic respiratory failure. Clinically improved. Continue nebulized bronchodilator, prednisone 10 mg daily. 2. Atrial fibrillation with rapid ventricular response. On diltiazem and digoxin with better of her heart rate. She is currently in and out of atrial fibrillation today. We will start thromboembolic prophylaxis with Eliquis 5 mg by mouth twice a day. 3. Diabetes. She is on sliding scale insulin coverage. She is on Tradjenta and Lantus insulin at home. We will start some basal insulin today.
[2018-06-17] MEDS: APIXABAN 5 MG TAB (ELIQUIS) PO SCH (21:27)
[2018-06-17] MEDS: LEVEMIR (INSULIN DETEMIR) 1 UNITS/0.01ML SC SCH (21:30)
[2018-06-18] VITALS (10 sets, daily range): BP systolic 98–128; BP diastolic 50–75
[2018-06-18] MEDS: IPRATROPIUM 0.5MG/ALBUTEROL 2.5MG INH SOL UD 3ML (DUONEB)(J7620) NEB SCH ×6 (04:17→23:39)
[2018-06-18 05:28] LABS: EOS % 0.3 % (0.0-3.0); HEMATOCRIT 35.5 % (36.0-47.0); HEMOGLOBIN 9.7 g/dl (12.0-15.5); LYMPH # 0.7 10^3/uL (1.5-4.5); LYMPH % 7.8 % (24.0-44.0); MEAN CORPUSCULAR HGB CONC 27.3 g/dl (32.0-36.5); MEAN CORPUSCULAR VOLUME 76.8 fl (80.0-96.0); MONO # 0.6 10^3/uL (0.0-0.8); MONO % 6.4 % (0.0-5.0); NEUTROPHILS # 7.5 10^3/uL (1.8-7.7); NEUTROPHILS % 84.6 % (36.0-66.0); PLATELET COUNT, AUTOMATED 153 10^3/uL (150-450); RED BLOOD COUNT 4.62 10^6/uL (4.00-5.40); WHITE BLOOD COUNT 8.9 10^3/uL (4.0-10.0)
[2018-06-18 05:53] LABS: ALBUMIN 2.7 GM/DL (3.2-5.2); BILIRUBIN,TOTAL 0.6 MG/DL (0.2-1.0); CALCIUM LEVEL 8.8 MG/DL (8.8-10.2); CREATININE FOR GFR 1.02 MG/DL (0.55-1.30); GLOMERULAR FILTRATION RATE 58.1 (>45); POTASSIUM SERUM 4.5 MEQ/L (3.5-5.1); TOTAL PROTEIN 5.6 GM/DL (6.4-8.2)
[2018-06-18] MEDS: LEVOTHYROXINE 75MCG TABLET (0.075MG) PO SCH (06:04)
[2018-06-18] MEDS: PANTOPRAZOLE 40MG TAB (PROTONIX) PO SCH (08:29)
[2018-06-18] MEDS: HumaLOG INSULIN (NovoLOG) PER UNIT SC SCH ×4 (08:29→20:02)
[2018-06-18] MEDS: predniSONE 10 MG TAB PO SCH (08:30)
[2018-06-18] MEDS: DIGOXIN 0.125 MG TAB PO SCH (08:30)
[2018-06-18] MEDS: APIXABAN 5 MG TAB (ELIQUIS) PO SCH ×2 (08:30→20:03)
[2018-06-18] MEDS: NYSTATIN 100,000 UNITS/GM TOPICAL PWD 15 GM TOP SCH ×2 (08:30→20:02)
[2018-06-18] MEDS ORDERED: BISACODYL 10 MG SUPP PR SCH (09:00)
--- NOTE | 2018-06-18 10:02 | IPNPDOC ---
Subjective Date Seen The patient was seen on 06/18/18. Subjective Chief Complaint/HPI Acute respiratory failure Constitutional: Denies: Chills, Fever, Night Sweats Pulmonary: Reports: Dyspnea (hronic) Cardiovascular: Denies: Chest Pain, Palpitations, Orthopnea, Paroxysmal Noc. Dyspnea, Lt Headedness Gastrointestinal: Reports: Constipation; Denies: Nausea, Vomiting, Abdominal Pain, Diarrhea Genitourinary: Denies: Dysuria, Frequency, Incontinence, Retention Psych: Reports: Mood Normal; Denies: Depression, Memory Issues Objective Physical Examination General Exam: Positive: Alert, No Acute Distress, Other (sleepign on bipap) ENT Exam: Positive: Mucous membr. moist/pink Neck Exam: Positive: Supple Chest Exam: Positive: Diminished; Negative: Clear to auscultation, Normal air movement Heart Exam: Positive: Rate Normal, Normal S1, Normal S2 Abdomen Exam: Positive: BS Hyperactive, Soft; Negative: Tenderness Extremity Exam: Negative: Clubbing, Cyanosis, Edema Skin Exam: Positive: Rash (under left breast, fungal) Assessment /Plan Problems (1) Acute on chronic respiratory failure with hypoxia and hypercapnia Status: Acute Problem Text: 06/15 Pulm cont to manage BiPap. Resp status stable. Pulm mcwilliams ggests no pneumonia, will d/c IV abx, monitor. 06/14 Pulmonology has been consulted and placed on BiPap. (2) Pneumonia Problem Text: Completed 2 days of rocephin/azithromycin, will d/c since low suspicion for abx. (3) Diastolic CHF, acute on chronic Problem Text: 06/18/18: 2 gram sodium, carb consistent diet with 2L fluid restriction. 06/15 Follows I&Os. Appears stable today. Repeat ECHO ordered. Metoprolol changed to diltiazem. 06/14 Given IV lasix 60 x1. takes 40 mg po daily at home. STRICT I/O. Echo from 08/2017: 1. Study is of difficult technical quality. 2. Normal left ventricular (LV) size with grossly preserved LV systolic function and grade 1 diastolic dysfunction. 3. Aortic sclerosis but no significant stenosis. 4. No significant mitral and tricuspid valvular disease. 5. Normal central venous pressure. 6. Unable to estimate pulmonary artery pressure. 7. Trace pericardial effusion. 8. Left pleural effusion. (4) Obstructive sleep apnea treated with bilevel positive airway pressure (BiPAP) Status: Chronic Discussed With: Multimedia Manager Problem Text: Non-compliant with use at home which is a contributing factor to repeated hospitalizations and poor prognosis. (5) CKD (chronic kidney disease) stage 3, GFR 30-59 ml/min Status: Chronic Problem Text: baseline Cr appears to run between 1.3-1.5 historically. Monitor Renal function with use of diuretics. (6) CAD (coronary artery disease) Status: Chronic (7) Hypertension Status: Chronic (8) Hyperlipidemia Status: Chronic (9) Morbid obesity Status: Chronic Plan/VTE VTE Prophylaxis Ordered?: Yes VS, I&O, 24H, Fishbone Vital Signs/I&O Vital Signs Date Time Temp Pulse Resp B/P (MAP) Pulse Ox O2 Delivery O2 Flow Rate FiO2 06/18/18 08:30 98 06/18/18 08:15 18 92 2.0 06/18/18 08:00 98.7 108/51 (70) 06/17/18 18:00 30 06/17/18 07:56 BIPAP/CPAP I&O- Last 24 Hours up to 6 AM 06/18/18 06:00 Intake Total 1360 ml Output Total 1090 ml Balance 270 ml Laboratory Data 24H LABS Laboratory Tests 2 06/17/18 12:14: Bedside Glucose (Misc Panel) 244H 06/17/18 17:32: Bedside Glucose (Misc Panel) 290H 06/17/18 20:05: Bedside Glucose (Misc Panel) 207H 06/18/18 05:13: Immature Granulocyte % (Auto) 0.9, White Blood Count 8.9, Red Blood Count 4.62, Hemoglobin 9.7L, Hematocrit 35.5L, Mean Corpuscular Volume 76.8L, Mean Corpuscular Hemoglobin 21.0L, Mean Corpuscular Hemoglobin Concent 27.3L, Red Cell Distribution Width 20.6H, Platelet Count 153, Neutrophils (%) (Auto) 84.6H, Lymphocytes (%) (Auto) 7.8L, Monocytes (%) (Auto) 6.4H, Eosinophils (%) (Auto) 0.3, Basophils (%) (Auto) 0.0, Neutrophils # (Auto) 7.5, Lymphocytes # (Auto) 0.7L, Monocytes # (Auto) 0.6, Eosinophils # (Auto) 0.0, Basophils # (Auto) 0.0, Nucleated Red Blood Cells % (auto) 0.0, Anion Gap 4L, Glomerular Filtration Rate 58.1, Blood Urea Nitrogen 28H, Creatinine 1.02, Sodium Level 137, Potassium Level 4.5, Chloride Level 91L, Carbon Dioxide Level 42H, Calcium Level 8.8, Aspartate Amino Transf (AST/SGOT) 59H, Alanine Aminotransferase (ALT/SGPT) 39, Alkaline Phosphatase 64, Total Bilirubin 0.6, Total Protein 5.6L, Albumin 2.7L, Albumin/Globulin Ratio 0.93L CBC/BMP Laboratory Tests 06/18/18 05:13 Red Blood Count 4.62, Mean Corpuscular Volume 76.8 L, Mean Corpuscular H emoglobin 21.0 L, Mean Corpuscular Hemoglobin Concent 27.3 L, Red Cell Distribution Width 20.6 H, Neutrophils (%) (Auto) 84.6 H, Lymphocytes (%) (Auto) 7.8 L, Monocytes (%) (Auto) 6.4 H, Eosinophils (%) (Auto) 0.3, Basophils (%) (Auto) 0.0, Neutrophils # (Auto) 7.5, Lymphocytes # (Auto) 0.7 L, Monocytes # (Auto) 0.6, Eosinophils # (Auto) 0.0, Basophils # (Auto) 0.0, Calcium Level 8.8, Aspartate Amino Transf (AST/SGOT) 59 H, Alanine Aminotransferase (ALT/SGPT) 39, Alkaline Phosphatase 64, Total Bilirubin 0.6, Total Protein 5.6 L, Albumin 2.7 L Microbiology Microbiology 06/16/18 Blood Culture - Preliminary, Resulted No Growth after 48 hours. All Specime... 06/16/18 Blood Culture - Preliminary, Resulted No Growth after 48 hours. All Specime... 06/13/18 Blood Culture - Preliminary, Resulted No Growth after 72 hours. All specime... 06/13/18 Blood Culture - Final, Complete Staphylococcus Warneri Sheryl Espinosa Jun 18, 2018 10:02 Alex Valdez MD Jun 18, 2018 11:31
[2018-06-18] MEDS: ADVAIR HFA 230/21MCG INHALER INH SCH ×2 (11:09→19:37)
[2018-06-18] MEDS: MOM 30ML SUSPENSION UDC PO PRN (11:50)
[2018-06-18] MEDS: BISACODYL 10 MG SUPP PR PRN (15:16)
[2018-06-18] MEDS: LEVEMIR (INSULIN DETEMIR) 1 UNITS/0.01ML SC SCH (20:02)
[2018-06-18] MEDS: ACETAMINOPHEN TAB 650MG DOSE (2X325MG) PO PRN (20:03)
--- NOTE | 2018-06-18 22:44 | ECGEPIP ---
Stationary ECG Study [facility] Test Date: 2018-06-18 Pat Name: QUINN THORNE Department: Room: [place] [address] Gender: F Business Management Professor: ISAIAH : [id number] Requested By: Alex Calderon Order Number: [id number] Reading MD: Cy Camarillo Measurements Intervals [place] Rate: 145 P: MS: 0 QRS: 53 QRSD: 87 T: 87 QT: 335 QTc: 522 Interpretive Statements ATRIAL FLUTTER/TACHYCARDIA WITH RAPID VENTRICULAR RESPONSE RIGHT VENTRICULAR CONDUCTION DELAY ATRIAL FLUTTER IS NEW SINCE 06/13/18 Electronically Signed On 06-18-2018 22:43:32 EST by Cy Camarillo
[2018-06-19] VITALS: BP 128/59
[2018-06-19 04:00] VITALS: BP 137/59
[2018-06-19] MEDS: IPRATROPIUM 0.5MG/ALBUTEROL 2.5MG INH SOL UD 3ML (DUONEB)(J7620) NEB SCH ×6 (04:28→23:35)
[2018-06-19 05:12] LABS: BASO % 0.1 % (0.0-1.0); EOS # 0.1 10^3/uL (0.0-0.50); EOS % 1.8 % (0.0-3.0); HEMATOCRIT 34.5 % (36.0-47.0); HEMOGLOBIN 9.5 g/dl (12.0-15.5); LYMPH # 0.9 10^3/uL (1.5-4.5); MEAN CORPUSCULAR HEMOGLOBIN 21.3 pg (27.0-33.0); MEAN CORPUSCULAR HGB CONC 27.5 g/dl (32.0-36.5); MEAN CORPUSCULAR VOLUME 77.5 fl (80.0-96.0); MONO # 0.5 10^3/uL (0.0-0.8); NEUTROPHILS # 6.3 10^3/uL (1.8-7.7); NEUTROPHILS % 79.5 % (36.0-66.0); PLATELET COUNT, AUTOMATED 136 10^3/uL (150-450); RED BLOOD COUNT 4.45 10^6/uL (4.00-5.40); WHITE BLOOD COUNT 7.9 10^3/uL (4.0-10.0)
[2018-06-19] MEDS: LEVOTHYROXINE 75MCG TABLET (0.075MG) PO SCH (05:35)
[2018-06-19 05:37] LABS: ALBUMIN 2.8 GM/DL (3.2-5.2); BILIRUBIN,TOTAL 0.5 MG/DL (0.2-1.0); CALCIUM LEVEL 8.5 MG/DL (8.8-10.2); CREATININE FOR GFR 1.18 MG/DL (0.55-1.30); GLOMERULAR FILTRATION RATE 49.1 (>45); POTASSIUM SERUM 4.3 MEQ/L (3.5-5.1); TOTAL PROTEIN 5.7 GM/DL (6.4-8.2)
[2018-06-19] MEDS: PANTOPRAZOLE 40MG TAB (PROTONIX) PO SCH (07:29)
[2018-06-19] MEDS: APIXABAN 5 MG TAB (ELIQUIS) PO SCH ×2 (07:29→20:22)
[2018-06-19] MEDS: NYSTATIN 100,000 UNITS/GM TOPICAL PWD 15 GM TOP SCH ×2 (07:29→20:22)
[2018-06-19] MEDS: MOM 30ML SUSPENSION UDC PO PRN (07:29)
[2018-06-19] MEDS: HumaLOG INSULIN (NovoLOG) PER UNIT SC SCH ×4 (07:29→20:22)
[2018-06-19] MEDS: DIGOXIN 0.125 MG TAB PO SCH (07:29)
[2018-06-19 07:38] VITALS: BP 111/49
[2018-06-19] MEDS: ADVAIR HFA 230/21MCG INHALER INH SCH ×2 (07:42→20:06)
--- NOTE | 2018-06-19 10:41 | IPNPDOC ---
Subjective Date Seen The patient was seen on 06/19/18. Subjective Chief Complaint/HPI as previously documented in HPI Constitutional: Denies: Chills ENT: Denies: Head Aches Skin: Denies: Rash Pulmonary: Denies: Dyspnea, Cough Cardiovascular: Denies: Chest Pain Gastrointestinal: Denies: Nausea, Abdominal Pain Genitourinary: Denies: Dysuria Hematologic: Denies: Bruising Neurological: Denies: Weakness Psych: Reports: Mood Normal Objective Physical Examination General Exam: Positive: Alert, No Acute Distress, Other (sleepign on bipap) Eye Exam: Positive: PERRLA, EOMI ENT Exam: Positive: Mucous membr. moist/pink Neck Exam: Positive: Supple; Negative: thyromegaly Chest Exam: Positive: Diminished; Negative: Clear to auscultation, Normal air movement Heart Exam: Positive: Rate Normal, Irregular Rhythm (episodes of paroxysmal atrial fib/flutter. irregular but definite flutter waves observed on monitor. rate improved after increase in diltiazem to 90 q6 hours), Normal S1, Normal S2 Abdomen Exam: Positive: BS Hyperactive, Soft; Negative: Tenderness Extremity Exam: Negative: Clubbing, Cyanosis, Edema Skin Exam: Positive: Rash (under left breast, fungal) Assessment /Plan Problems (1) Acute on chronic respiratory failure with hypoxia and hypercapnia Status: Acute Problem Text: 06/15 Pulm cont to manage BiPap. Resp status stable. Pulm suggests no pneumonia, will d/c IV abx, monitor. 06/14 Pulmonology has been consulted and placed on BiPap. (2) Pneumonia Problem Text: Completed 2 days of rocephin/azithromycin, will d/c since low suspicion for abx. (3) Diastolic CHF, acute on chronic Problem Text: 06/18/18: 2 gram sodium, carb consistent diet with 2L fluid restriction. 06/15 Follows I&Os. Appears stable today. Repeat ECHO ordered. Metoprolol changed to diltiazem. 06/14 Given IV lasix 60 x1. takes 40 mg po daily at home. STRICT I/O. Echo from 08/2017: 1. Study is of difficult technical quality. 2. Normal left ventricular (LV) size with grossly preserved LV systolic function and grade 1 diastolic dysfunction. 3. Aortic sclerosis but no significant stenosis. 4. No significant mitral and tricuspid valvular disease. 5. Normal central venous pressure. 6. Unable to estimate pulmonary artery pressure. 7. Trace pericardial effusion. 8. Left pleural effusion. (4) Obstructive sleep apnea treated with bilevel positive airway pressure (BiPAP) Status: Chronic Discussed With: Guide Dog Instructor Problem Text: Non-compliant with use at home which is a contributing factor to repeated hospitalizations and poor prognosis. (5) CKD (chronic kidney disease) stage 3, GFR 30-59 ml/min Status: Chronic Problem Text: baseline Cr appears to run between 1.3-1.5 historically. Monitor Renal function with use of diuretics. (6) CAD (coronary artery disease) Status: Chronic (7) Hypertension Status: Chronic (8) Hyperlipidemia Status: Chronic (9) Morbid obesity Status: Chronic (10) Paroxysmal A-fib Status: Acute Response to Treatment: Improving Problem Text: remains on digoxin with therapeutic level. diltiazem dose tit rated from 240 to 360/day (given 90mg q6 hours). Rate control improved with dose increase. Plan/VTE VTE Prophylaxis Ordered?: Yes Plan Anticipated Discharge: Assisted Living VS, I&O, 24H, [facility] Vital Signs/I&O Vital Signs Date Time Temp Pulse Resp B/P (MAP) Pulse Ox O2 Delivery O2 Flow Rate FiO2 06/19/18 08:00 2.0 06/19/18 07:29 86 06/19/18 05:35 136/63 06/19/18 04:00 98.9 21 91 06/17/18 18:00 30 06/17/18 07:56 BIPAP/CPAP I&O- Last 24 Hours up to 6 AM 06/19/18 06:00 Intake Total 955 ml Output Total 550 ml Balance 405 ml Laboratory Data 24H LABS Laboratory Tests 2 06/18/18 11:11: Bedside Glucose (Misc Panel) 268H 06/18/18 14:53: Digoxin Level 1.9 06/18/18 17:49: Bedside Glucose (Misc Panel) 273H 06/18/18 19:58: Bedside Glucose (Misc Panel) 273H 06/19/18 04:56: Immature Granulocyte % (Auto) 1.6, White Blood Count 7.9, Red Blood Count 4.45, Hemoglobin 9.5L, Hematocrit 34.5L, Mean Corpuscular Volume 77.5L, Mean Corpuscular Hemoglobin 21.3L, Mean Corpuscular Hemoglobin Concent 27.5L, Red Cell Distribution Width 20.4H, Platelet Count 136L, Neutrophils (%) (Auto) 79.5H, Lymphocytes (%) (Auto) 11.0L, Monocytes (%) (Auto) 6.0H, Eosinophils (%) (Auto) 1.8, Basophils (%) (Auto) 0.1, Neutrophils # (Auto) 6.3, Lymphocytes # (Auto) 0.9L, Monocytes # (Auto) 0.5, Eosinophils # (Auto) 0.1, Basophils # (Auto) 0.0, Nucleated Red Blood Cells % (auto) 0.0, Anion Gap 4L, Glomerular Filtration Rate 49.1, Blood Urea Nitrogen 26H, Creatinine 1.18, Sodium Level 136, Potassium Level 4.3, Chloride Level 90L, Carbon Dioxide Level 42H, Calcium Level 8.5L, Aspartate Amino Transf (AST/SGOT) 57H, Alanine Aminotransferase (ALT/SGPT) 52, Alkaline Phosphatase 65, Total Bilirubin 0.5, Total Protein 5.7L, Albumin 2.8L, Albumin/Globulin Ratio 0.97L 06/19/18 10:15: CBC/BMP Laboratory Tests 06/19/18 04:56 Red Blood Count 4.45, Mean Corpuscular Volume 77.5 L, Mean Corpuscular Hemoglobin 21.3 L, Mean Corpuscular Hemoglobin Concent 27.5 L, Red Cell Distribution Width 20.4 H, Neutrophils (%) (Auto) 79.5 H, Lymphocytes (%) (Auto) 11.0 L, Monocytes (%) (Auto) 6.0 H, Eosinophils (%) (Auto) 1.8, Basophils (%) (Auto) 0.1, Neutrophils # (Auto) 6.3, Lymphocytes # (Auto) 0.9 L, Monocytes # (Auto) 0.5, Eosinophils # (Auto) 0.1, Basophils # (Auto) 0.0, Calcium Level 8.5 L, Aspartate Amino Transf (AST/SGOT) 57 H, Alanine Aminotransferase (ALT/SGPT) 52, Alkaline Phosphatase 65, Total Bilirubin 0.5, Total Protein 5.7 L, Albumin 2.8 L Microbiology Microbiology 06/16/18 Blood Culture - Preliminary, Resulted No Growth after 72 hours. All specime... 06/16/18 Blood Culture - Preliminary, Resulted No Growth after 72 hours. All specime... 06/13/18 Blood Culture - Final, Complete NO GROWTH AFTER 5 DAYS 06/13/18 Blood Culture - Final, Complete Staphylococcus Warneri Alex Valdez MD Jun 19, 2018 10:41
[2018-06-19 11:12] VITALS: BP 101/41
--- NOTE | 2018-06-19 11:23 | CCN ---
DATE: 06/18/2018 SUBJECTIVE: The patient is doing well this morning. Not complaining of shortness of breath and feels like she is returning to baseline. She has not had a bowel movement in several days. Staff is inquiring about placing her on something for bowel movements. Currently, she is doing well on BiPAP, has been compliant with it and tolerating it well. PHYSICAL EXAMINATION: Heart rate in the 70s, still is in and out of atrial fibrillation with rapid ventricular response on monitor. Blood pressure is 128/56. Oxygen saturation is 94% on 2 liters with PO2 low at 91%. On 0.35 FiO2 while on bilevel noninvasive therapy with settings 22/6. Respiratory rate is 18 and maximum temperature (t-max) in the last 24 hours was 99.6. GENERAL: The patient is awake, alert, conversant. Oriented to person, place and time. She is sitting comfortably upright in her chair. HEENT: Head is normocephalic, atraumatic. Sclerae are clear and nonicteric. Extraocular muscles intact (EOMI). Oropharynx is clear without lesions. Mucous membranes are moist. Mallampati score of 4. Tongue is midline. NECK: Soft, supple. Nontender to palpation. Large in circumference. CARDIAC: Distant heart sounds. Normal S1, S2. No murmurs, gallops, rubs appreciated on auscultation. PULMONARY: Lung sounds are very distant with poor chest expansion. No rales, rhonchi or wheezing on auscultation. ABDOMEN: Obese, soft, nontender with mild distention. No splenomegaly, masses or positive fluid wave. She does feel as though she has stool in her abdomen. EXTREMITIES: She still has mild edema above her MELVIN stockings. No cyanosis or clubbing. SKIN: She does have bruising on her arms, likely from being on anticoagulants. No jaundice or rashes. LABORATORY EVALUATION: Sodium of 137, potassium 4.5, chloride 91, bicarbonate of 42, BUN of 28, creatinine 1.02, glucose of 149, white blood cell count of 8.9, hemoglobin 9.7, hematocrit of 35.5, platelet count is 153, elevated AST of 59, ALT of 39. No blood gases taken today. IMAGING: No new imaging today. IMPRESSION AND PLAN: 1. Acute on chronic hypoxic hypercarbic respiratory failure secondary to hypoventilation, likely from cardiomegaly and chronic congestive heart failure (CHF). The patient is currently on BiPAP settings of 22/6 when she sleeps and at nighttime. She is tolerating this well and we once again stressed the importance of her continued compliance with this therapy. She seems to understand the importance of compliance with therapy and we plan to followup with her in the office outpatient. She will continue on her DuoNeb treatments and we will discontinue prednisone and start her on Advair. 2. Atrial fibrillation with rapid ventricular response. She continues to spontaneously have heart rates in the 140s and convert from sinus rhythm into atrial fibrillation. She is currently on Eliquis for anticoagulation and is on diltiazem for rate control. 3. Constipation. She had a small bowel movement this morning. We will start her on Dulcolax and milk of magnesia and get her up and moving around to aid with bowel movements. She can continue on Protonix, and we will advance her diet as tolerated. 4. Deconditioning. She has not had a physical therapy (PT) or occupational therapy (OT) referral yet, so we will start her on that today. 5. Cardiomegaly with probable underlying heart failure. Echo did show chronic diastolic heart failure. She was diuresed somewhat over the weekend. We will continue her on digoxin. We will leave to the primary team about whether or not to consult cardiology for further heart failure management. 6. Anemia. The patient is currently on Eliquis, MELVIN and sequentials but her hemoglobin and hematocrit has been stable throughout her visit. No signs of acute bleeding. 7. Gastrointestinal. The patient is currently on clear liquid diet. We will advance diet as tolerated. PROGNOSIS: Prognosis is guarded, as the patient has chronic hypoxic hypercarbic respiratory failure. She is a DO NOT RESUSCITATE and therefore options are limited. My faculty preceptor for this patient encounter was physically present during the encounter and was fully available. All aspects of the patient interview, examination, medical decision making process, and medical care plan development were reviewed and approved by the faculty preceptor. The faculty preceptor is aware and concurs with the plan as stated in the body of this note and will attest to such by his/her co-signature. ADDENDUM: 06/18/2018 Ron Simon conducted an independent history and physical on bedside rounding today. Dr. Johnson and I discussed assessment and plan and I agree with what is outlined as written above. MTDD
[2018-06-19] MEDS: FUROSEMIDE 40 MG TAB PO SCH (12:56)
[2018-06-19 15:59] VITALS: BP 119/55
[2018-06-19 20:00] VITALS: BP 136/58
[2018-06-19] MEDS: LEVEMIR (INSULIN DETEMIR) 1 UNITS/0.01ML SC SCH (20:22)
[2018-06-20] VITALS (7 sets, daily range): BP systolic 94–138; BP diastolic 42–62
[2018-06-20] MEDS: IPRATROPIUM 0.5MG/ALBUTEROL 2.5MG INH SOL UD 3ML (DUONEB)(J7620) NEB SCH ×6 (04:29→23:20)
[2018-06-20 05:08] LABS: BASO % 0.2 % (0.0-1.0); EOS # 0.2 10^3/uL (0.0-0.50); HEMATOCRIT 34.7 % (36.0-47.0); HEMOGLOBIN 9.3 g/dl (12.0-15.5); LYMPH % 12.3 % (24.0-44.0); MEAN CORPUSCULAR HGB CONC 26.8 g/dl (32.0-36.5); MEAN CORPUSCULAR VOLUME 78.3 fl (80.0-96.0); MONO # 0.5 10^3/uL (0.0-0.8); MONO % 6.3 % (0.0-5.0); NEUTROPHILS # 6.2 10^3/uL (1.8-7.7); NEUTROPHILS % 76.8 % (36.0-66.0); PLATELET COUNT, AUTOMATED 135 10^3/uL (150-450); RED BLOOD COUNT 4.43 10^6/uL (4.00-5.40); WHITE BLOOD COUNT 8.1 10^3/uL (4.0-10.0)
[2018-06-20 05:28] LABS: ALBUMIN 2.7 GM/DL (3.2-5.2); BILIRUBIN,TOTAL 0.4 MG/DL (0.2-1.0); CALCIUM LEVEL 8.7 MG/DL (8.8-10.2); CREATININE FOR GFR 1.14 MG/DL (0.55-1.30); GLOMERULAR FILTRATION RATE 51.1 (>45); POTASSIUM SERUM 4.3 MEQ/L (3.5-5.1); TOTAL PROTEIN 5.6 GM/DL (6.4-8.2)
[2018-06-20] MEDS: LEVOTHYROXINE 75MCG TABLET (0.075MG) PO SCH (06:28)
[2018-06-20] MEDS: ADVAIR HFA 230/21MCG INHALER INH SCH ×2 (08:00→21:00)
[2018-06-20] MEDS: HumaLOG INSULIN (NovoLOG) PER UNIT SC SCH ×4 (08:20→21:00)
[2018-06-20] MEDS: PANTOPRAZOLE 40MG TAB (PROTONIX) PO SCH (08:20)
[2018-06-20] MEDS: APIXABAN 5 MG TAB (ELIQUIS) PO SCH ×2 (08:20→21:34)
[2018-06-20] MEDS: FUROSEMIDE 40 MG TAB PO SCH (08:20)
[2018-06-20] MEDS: NYSTATIN 100,000 UNITS/GM TOPICAL PWD 15 GM TOP SCH ×2 (08:21→21:36)
--- NOTE | 2018-06-20 10:42 | IPNPDOC ---
Subjective Date Seen The patient was seen on 06/20/18. Subjective Chief Complaint/HPI per HPI. no new complaints today General: Denies: Chills Constitutional: Denies: Chills ENT: Denies: Head Aches Pulmonary: Denies: Cough, Pleuritic Chest Pain Cardiovascular: Denies: Chest Pain, Palpitations, Orthopnea Gastrointestinal: Denies: Nausea, Abdominal Pain Genitourinary: Denies: Dysuria Neurological: Denies: Weakness, Change in speech Psych: Reports: Mood Normal Objective Physical Examination General Exam: Positive: Alert, No Acute Distress, Other (sleepign on bipap) Eye Exam: Positive: PERRLA, EOMI ENT Exam: Positive: Mucous membr. moist/pink Neck Exam: Positive: Supple; Negative: thyromegaly Chest Exam: Positive: Diminished; Negative: Clear to auscultation, Normal air movement Heart Exam: Positive: Rate Normal, Irregular Rhythm (she has periods of sinus, periods of rate controlled afib and brief episodes of atrial flutter with rates of 140.), Normal S1, Normal S2 Abdomen Exam: Positive: BS Hyperactive, Soft; Negative: Tenderness Extremity Exam: Negative: Clubbing, Cyanosis, Edema Skin Exam: Positive: Rash (under left breast, fungal) Assessment /Plan Problems (1) Acute on chronic respiratory failure with hypoxia and hypercapnia Status: Acute Problem Text: 06/15 Pulm cont to manage BiPap. Resp status stable. Pulm suggests no pneumonia, will d/c IV abx, monitor. 06/14 Pulmonology has been consulted and placed on BiPap. (2) Pneumonia Problem Text: Completed 2 days of rocephin/azithromycin, will d/c since low suspicion for abx. (3) Diastolic CHF, acute on chronic Problem Text: 06/18/18: 2 gram sodium, carb consistent diet with 2L fluid restriction. 06/15 Follows I&Os. Appears stable today. Repeat ECHO ordered. Metoprolol changed to diltiazem. 06/14 Given IV lasix 60 x1. takes 40 mg po daily at home. STRICT I/O. Echo from 08/2017: 1. Study is of difficult technical quality. 2. Normal left ventricular (LV) size with grossly preserved LV systolic function and grade 1 diastolic dysfunction. 3. Aortic sclerosis but no significant stenosis. 4. No significant mitral and tricuspid valvular disease. 5. Normal central venous pressure. 6. Unable to estimate pulmonary artery pressure. 7. Trace pericardial effusion. 8. Left pleural effusion. (4) Obstructive sleep apnea treated with bilevel positive airway pressure (BiPAP) Status: Chronic Discussed With: Director Of Athletics Problem Text: Non-compliant with use at home which is a contributing factor to repeated hospitalizations and poor prognosis. (5) CKD (chronic kidney disease) stage 3, GFR 30-59 ml/min Status: Chronic Problem Text: baseline Cr appears to run between 1.3-1.5 historically. Monitor Renal function with use of diuretics. (6) CAD (coronary artery disease) Status: Chronic (7) Hypertension Status: Chronic (8) Hyperlipidemia Status: Chronic (9) Morbid obesity Status: Chronic (10) Paroxysmal A-fib Status: Acute Response to Treatment: Improving Problem Text: 06/20: rhythm varies from sinus, to afib with good rate control to brief episodes of atrial flutter with rates of 140. dig level 2.3 today so dose stopped. plan to resume at 0.125 every other day once she demonstrates return to therapeutic level. repeat level has been ordered for tomorrow. will add amiodarone 200 bid and plan outpatient f/u with cardiology after discharge. per PT she is close to meeting discharge goals. will transfer to floor with tele and MARY monitoring until ready to return to [facility] Plan/VTE VTE Prophylaxis Ordered?: Yes Plan Diet: Continue Current (but allow sugar and regular coffee.) Anticipated Discharge: Assisted Living VS, I&O, 24H, [facility] Vital Signs/I&O Vital Signs Date Time Temp Pulse Resp B/P (MAP) Pulse Ox O2 Delivery O2 Flow Rate FiO2 06/20/18 08:00 2.0 06/20/18 08:00 98.5 85 20 123/58 (79) 95 06/17/18 18:00 30 06/17/18 07:56 BIPAP/CPAP I&O- Last 24 Hours up to 6 AM 06/20/18 06:00 Intake Total 670 ml Output Total 400 ml Balance 270 ml Laboratory Data 24H LABS Laboratory Tests 2 06/19/18 11:10: Bedside Glucose (Misc Panel) 164H 06/19/18 16:55: Bedside Glucose (Misc Panel) 168H 06/19/18 20:13: Bedside Glucose (Misc Panel) 159H 06/20/18 04:43: Immature Granulocyte % (Auto) 1.4, White Blood Count 8.1, Red Blood Count 4.43, Hemoglobin 9.3L, Hematocrit 34.7L, Mean Corpuscular Volume 78.3L, Mean Corpuscular Hemoglobin 21.0L, Mean Corpuscular Hemoglobin Concent 26.8L, Red Cell Distribution Width 20.8H, Platelet Count 135L, Neutrophils (%) (Auto) 76.8H, Lymphocytes (%) (Auto) 12.3L, Monocytes (%) (Auto) 6.3H, Eosinophils (%) (Auto) 3.0, Basophils (%) (Auto) 0.2, Neutrophils # (Auto) 6.2, Lymphocytes # (Auto) 1.0L, Monocytes # (Auto) 0.5, Eosinophils # (Auto) 0.2, Basophils # (Auto) 0.0, Nucleated Red Blood Cells % (auto) 0.0, Anion Gap 2L, Glomerular Filtration Rate 51.1, Blood Urea Nitrogen 22H, Creatinine 1.14, Sodium Level 134L, Potassium Level 4.3, Chloride Level 89L, Carbon Dioxide Level 43H, Calcium Level 8.7L, Aspartate Amino Transf (AST/SGOT) 52H, Alanine Aminotransferase (ALT/SGPT) 64, Alkaline Phosphatase 68, Total Bilirubin 0.4, Total Protein 5.6L, Albumin 2.7L, Albumin/Globulin Ratio 0.93L CBC/BMP Laboratory Tests 06/20/18 04:43 Red Blood Count 4.43, Mean Corpuscular Volume 78.3 L, Mean Corpuscular Hemoglobin 21.0 L, Mean Corpuscular Hemoglobin Concent 26.8 L, Red Cell Distribution Width 20.8 H, Neutrophils (%) (Auto) 76.8 H, Lymphocytes (%) (Auto) 12.3 L, Monocytes (%) (Auto) 6.3 H, Eosinophils (%) (Auto) 3.0, Basophils (%) (Auto) 0.2, Neutrophils # (Auto) 6.2, Lymphocytes # (Auto) 1.0 L, Monocytes # (Auto) 0.5, Eosinophils # (Auto) 0.2, Basophils # (Auto) 0.0, Calcium Level 8.7 L, Aspartate Amino Transf (AST/SGOT) 52 H, Alanine Aminotransferase (ALT/SGPT) 64, Alkaline Phosphatase 68, Total Bilirubin 0.4, Total Protein 5.6 L, Albumin 2.7 L Microbiology Microbiology 06/16/18 Blood Culture - Preliminary, Resulted No Growth after 72 hours. All specime... 06/16/18 Blood Culture - Preliminary, Resulted No Growth after 72 hours. All specime... 06/13/18 Blood Culture - Final, Complete NO GROWTH AFTER 5 DAYS 06/13/18 Blood Culture - Final, Complete Staphylococcus Warneri Alex Valdez MD Jun 20, 2018 10:42
[2018-06-20] MEDS: AMIODARONE 100MG TABLET (PACERONE) PO SCH ×2 (11:38→21:34)
[2018-06-20] MEDS: LEVEMIR (INSULIN DETEMIR) 1 UNITS/0.01ML SC SCH (21:35)
[2018-06-20] MEDS: ACETAMINOPHEN TAB 650MG DOSE (2X325MG) PO PRN (21:39)
[2018-06-21] MEDS: IPRATROPIUM 0.5MG/ALBUTEROL 2.5MG INH SOL UD 3ML (DUONEB)(J7620) NEB SCH ×6 (03:47→22:38)
[2018-06-21 06:00] VITALS: BP 110/60
[2018-06-21] MEDS: LEVOTHYROXINE 75MCG TABLET (0.075MG) PO SCH (06:00)
[2018-06-21 06:38] LABS: BASO % 0.3 % (0.0-1.0); EOS # 0.3 10^3/uL (0.0-0.50); EOS % 3.4 % (0.0-3.0); HEMATOCRIT 34.3 % (36.0-47.0); HEMOGLOBIN 9.2 g/dl (12.0-15.5); LYMPH # 0.9 10^3/uL (1.5-4.5); LYMPH % 11.6 % (24.0-44.0); MEAN CORPUSCULAR HGB CONC 26.8 g/dl (32.0-36.5); MEAN CORPUSCULAR VOLUME 78.1 fl (80.0-96.0); MONO # 0.4 10^3/uL (0.0-0.8); MONO % 5.7 % (0.0-5.0); NEUTROPHILS # 5.7 10^3/uL (1.8-7.7); NEUTROPHILS % 77.4 % (36.0-66.0); PLATELET COUNT, AUTOMATED 139 10^3/uL (150-450); RED BLOOD COUNT 4.39 10^6/uL (4.00-5.40); WHITE BLOOD COUNT 7.4 10^3/uL (4.0-10.0)
[2018-06-21 07:13] LABS: ALBUMIN 2.7 GM/DL (3.2-5.2); BILIRUBIN,TOTAL 0.5 MG/DL (0.2-1.0); CALCIUM LEVEL 8.7 MG/DL (8.8-10.2); CREATININE FOR GFR 1.27 MG/DL (0.55-1.30); DIGOXIN LEVEL 1.7 NG/ML (0.5-2.0); GLOMERULAR FILTRATION RATE 45.1 (>45); POTASSIUM SERUM 3.8 MEQ/L (3.5-5.1); TOTAL PROTEIN 5.5 GM/DL (6.4-8.2)
[2018-06-21] MEDS: HumaLOG INSULIN (NovoLOG) PER UNIT SC SCH ×4 (07:30→21:00)
[2018-06-21] MEDS: ADVAIR HFA 230/21MCG INHALER INH SCH ×2 (08:25→19:41)
[2018-06-21] MEDS: PANTOPRAZOLE 40MG TAB (PROTONIX) PO SCH (09:46)
[2018-06-21] MEDS: AMIODARONE 100MG TABLET (PACERONE) PO SCH ×2 (09:46→22:23)
[2018-06-21] MEDS: APIXABAN 5 MG TAB (ELIQUIS) PO SCH ×2 (09:46→22:22)
[2018-06-21] MEDS: NYSTATIN 100,000 UNITS/GM TOPICAL PWD 15 GM TOP SCH ×2 (09:46→22:25)
[2018-06-21] MEDS: FUROSEMIDE 40 MG TAB PO SCH (09:46)
--- NOTE | 2018-06-21 12:33 | IPNPDOC ---
Subjective Date Seen The patient was seen on 06/21/18. Subjective Chief Complaint/HPI none new, see HPI Constitutional: Denies: Chills, Fever ENT: Denies: Head Aches Pulmonary: Denies: Dyspnea, Cough Cardiovascular: Denies: Chest Pain, Palpitations Gastrointestinal: Denies: Nausea, Vomiting, Abdominal Pain Genitourinary: Denies: Dysuria Hematologic: Denies: Bruising Neurological: Denies: Weakness, Numbness Psych: Reports: Mood Normal Objective Physical Examination General Exam: Positive: Alert, No Acute Distress, Other (sleepign on bipap) Eye Exam: Positive: PERRLA, EOMI ENT Exam: Positive: Mucous membr. moist/pink Neck Exam: Positive: Supple; Negative: thyromegaly Chest Exam: Positive: Diminished; Negative: Clear to auscultation, Normal air movement Heart Exam: Positive: Rate Normal, Regular Rhythm (monitor shows RSR rate controlled today.), Normal S1, Normal S2 Abdomen Exam: Positive: BS Hyperactive, Soft; Negative: Tenderness Extremity Exam: Negative: Clubbing, Cyanosis, Edema Skin Exam: Positive: Rash (under left breast, fungal) Psych Exam: Positive: Mental status NL Assessment /Plan Problems (1) Acute on chronic respiratory failure with hypoxia and hypercapnia Status: Acute Problem Text: 06/21 tolerating supportive BiPap 06/15 Pulm cont to manage BiPap. Resp status stable. Pulm suggests no pneumonia, will d/c IV abx, monitor. 06/14 Pulmonology has been consulted and placed on BiPap. (2) Pneumonia Problem Text: Completed 2 days of rocephin/azithromycin, will d/c since low suspicion for abx. (3) Diastolic CHF, acute on chronic Problem Text: 06/18/18: 2 gram sodium, carb consistent diet with 2L fluid restriction. 06/15 Follows I&Os. Appears stable today. Repeat ECHO ordered. Metoprolol changed to diltiazem. 06/14 Given IV lasix 60 x1. takes 40 mg po daily at home. STRICT I/O. Echo from 08/2017: 1. Study is of difficult technical quality. 2. Normal left ventricular (LV) size with grossly preserved LV systolic function and grade 1 diastolic dysfunction. 3. Aortic sclerosis but no significant stenosis. 4. No significant mitral and tricuspid valvular disease. 5. Normal central venous pressure. 6. Unable to estimate pulmonary artery pressure. 7. Trace pericardial effusion. 8. Left pleural effusion. (4) Obstructive sleep apnea treated with bilevel positive airway pressure (BiPAP) Status: Chronic Discussed With: Webbing Weaver Problem Text: 06/21: readying for discharge, indicates renewed commitment to adhere to use of BiPap Non-compliant with use at home which is a contributing factor to repeated hospitalizations and poor prognosis. (5) CKD (chronic kidney disease) stage 3, GFR 30-59 ml/min Status: Chronic Problem Text: baseline Cr appears to run between 1.3-1.5 historically. Monitor Renal function with use of diuretics. (6) CAD (coronary artery disease) Status: Chronic Response to Treatment: Stable (7) Hypertension Status: Chronic Response to Treatment: Stable (8) Hyperlipidemia Status: Chronic (9) Morbid obesity Status: Chronic (10) Paroxysmal A-fib Status: Acute Response to Treatment: Improving Problem Text: 06/21: will change to Cardizem CD 360 starting tomorrow. 06/20: rhythm varies from sinus, to afib with good rate control to brief episodes of atrial flutter with rates of 140. dig level 2.3 today so dose stopped. plan to resume at 0.125 every other day once she demonstrates return to therapeutic level. repeat level has been ordered for tomorrow. will add amiodarone 200 bid and plan outpatient f/u with cardiology after discharge. per PT she is close to meeting discharge goals. will transfer to floor with tele and MARY monitoring until ready to return to [facility] Plan/VTE VTE Prophylaxis Ordered?: Yes Plan Diet: Continue Current (but allow sugar and regular coffee.) Anticipated Discharge: Assisted Living VS, I&O, 24H, [facility] Vital Signs/I&O Vital Signs Date Time Temp Pulse Resp B/P (MAP) Pulse Ox O2 Delivery O2 Flow Rate FiO2 06/21/18 06:00 97.6 70 15 110/60 (77) 95 1.0 06/17/18 18:00 30 06/17/18 07:56 BIPAP/CPAP I&O- Last 24 Hours up to 6 AM 06/21/18 06:00 Intake Total 930 ml Output Total 0 ml Balance 930 ml Laboratory Data 24H LABS Laboratory Tests 2 06/20/18 16:32: Bedside Glucose (Misc Panel) 213H 06/20/18 20:43: Bedside Glucose (Misc Panel) 124H 06/21/18 05:30: Immature Granulocyte % (Auto) 1.6, White Blood Count 7.4, Red Blood Count 4.39, Hemoglobin 9.2L, Hematocrit 34.3L, Mean Corpuscular Volume 78.1L, Mean Corpuscular Hemoglobin 21.0L, Mean Corpuscular Hemoglobin Concent 26.8L, Red Cell Distribution Width 20.8H, Platelet Count 139L, Neutrophils (%) (Auto) 77.4H, Lymphocytes (%) (Auto) 11.6L, Monocytes (%) (Auto) 5.7H, Eosinophils (%) (Auto) 3.4H, Basophils (%) (Auto) 0.3, Neutrophils # (Auto) 5.7, Lymphocytes # (Auto) 0.9L, Monocytes # (Auto) 0.4, Eosinophils # (Auto) 0.3, Basophils # (Auto) 0.0, Nucleated Red Blood Cells % (auto) 0.0, Anion Gap 4L, Glomerular Filtration Rate 45.1, Blood Urea Nitrogen 21H, Creatinine 1.27, Sodium Level 135L, Potassium Level 3.8, Chloride Level 90L, Carbon Dioxide Level 41H, Calcium Level 8.7L, Aspartate Amino Transf (AST/SGOT) 35, Alanine Aminotransferase (ALT/SGPT) 61, Alkaline Phosphatase 73, Total Bilirubin 0.5, Total Protein 5.5L, Albumin 2.7L, Albumin/Globulin Ratio 0.96L, Digoxin Level 1.7 06/21/18 11:45: Bedside Glucose (Misc Panel) 190H CBC/BMP Laboratory Tests 06/21/18 05:30 Red Blood Count 4.39, Mean Corpuscular Volume 78.1 L, Mean Corpuscular Hemoglob in 21.0 L, Mean Corpuscular Hemoglobin Concent 26.8 L, Red Cell Distribution Width 20.8 H, Neutrophils (%) (Auto) 77.4 H, Lymphocytes (%) (Auto) 11.6 L, Monocytes (%) (Auto) 5.7 H, Eosinophils (%) (Auto) 3.4 H, Basophils (%) (Auto) 0.3, Neutrophils # (Auto) 5.7, Lymphocytes # (Auto) 0.9 L, Monocytes # (Auto) 0.4, Eosinophils # (Auto) 0.3, Basophils # (Auto) 0.0, Calcium Level 8.7 L, Aspartate Amino Transf (AST/SGOT) 35, Alanine Aminotransferase (ALT/SGPT) 61, Alkaline Phosphatase 73, Total Bilirubin 0.5, Total Protein 5.5 L, Albumin 2.7 L Microbiology Microbiology 06/16/18 Blood Culture - Final, Complete NO GROWTH AFTER 5 DAYS 06/16/18 Blood Culture - Final, Complete NO GROWTH AFTER 5 DAYS 06/13/18 Blood Culture - Final, Complete NO GROWTH AFTER 5 DAYS 06/13/18 Blood Culture - Final, Complete Staphylococcus Warneri Alex Valdez MD Jun 21, 2018 12:33
[2018-06-21] MEDS: ACETAMINOPHEN TAB 650MG DOSE (2X325MG) PO PRN (12:45)
[2018-06-21] MEDS: DIGOXIN 0.125 MG TAB PO SCH (12:45)
[2018-06-21 14:00] VITALS: BP 147/67
[2018-06-21 17:49] VITALS: BP 145/65
[2018-06-21 22:00] VITALS: BP 139/70
[2018-06-21] MEDS: LEVEMIR (INSULIN DETEMIR) 1 UNITS/0.01ML SC SCH (22:23)
[2018-06-22] MEDS: IPRATROPIUM 0.5MG/ALBUTEROL 2.5MG INH SOL UD 3ML (DUONEB)(J7620) NEB SCH ×6 (02:51→23:35)
[2018-06-22 06:00] VITALS: BP 116/55
[2018-06-22] MEDS: LEVOTHYROXINE 75MCG TABLET (0.075MG) PO SCH (06:32)
[2018-06-22] MEDS: ADVAIR HFA 230/21MCG INHALER INH SCH ×2 (07:49→21:00)
[2018-06-22] MEDS: NYSTATIN 100,000 UNITS/GM TOPICAL PWD 15 GM TOP SCH ×2 (09:00→20:46)
[2018-06-22] MEDS: MOM 30ML SUSPENSION UDC PO PRN (09:18)
[2018-06-22] MEDS: AMIODARONE 100MG TABLET (PACERONE) PO SCH (09:19)
[2018-06-22] MEDS: PANTOPRAZOLE 40MG TAB (PROTONIX) PO SCH (09:19)
[2018-06-22] MEDS: FUROSEMIDE 40 MG TAB PO SCH (09:19)
[2018-06-22] MEDS: HumaLOG INSULIN (NovoLOG) PER UNIT SC SCH ×4 (09:19→20:38)
[2018-06-22] MEDS: APIXABAN 5 MG TAB (ELIQUIS) PO SCH ×2 (09:19→20:43)
[2018-06-22] MEDS: BISACODYL 10 MG SUPP PR PRN (10:43)
[2018-06-22] MEDS ORDERED: DIGO0.12 PO (12:15)
[2018-06-22] MEDS ORDERED: ELIQ5TAB PO (12:15)
[2018-06-22] MEDS ORDERED: AMIO200T PO (12:15)
[2018-06-22] MEDS ORDERED: DILT30TA PO (12:15)
[2018-06-22 14:00] VITALS: BP 112/88
--- NOTE | 2018-06-22 18:53 | DS.PDOC ---
Discharge Summary General Date of Admission Jun 13, 2018 at 14:42 Date of Discharge 06/22/2018 Primary Care Physician: AIMEE DYE DO Attending Physician: Alex Valdez MD Specialist/Consultants Involve: SYED MENA Discharge Summary PROCEDURES PERFORMED DURING STAY: Echocardiogram. ADMITTING DIAGNOSES: 1. Acute hypercapnic respiratory failure 2. Community acquired pneumonia 3. COPD exacerbation DISCHARGE DIAGNOSES: 1. Acute on chronic respiratory failure with hypoxia and hypercapnia 2. Pneumonia 3. Diastolic CHF, acute on chronic 4. MARY on BiPAP 5. CKD stage 3 6. Atrial fibrillation COMPLICATIONS/CHIEF COMPLAINT: Acute Respiratory Failure With Hypercapnia,Copd. HISTORY OF PRESENT ILLNESS: Patient is a 62 year old female who presented as obtunded. She had similar appearance several weeks ago. She was found with pulse ox of 40% O2. She was admitted for hypercapnic respiratory failure. No history could be obtained from patient at time of admission. A chest radiograph showed likely bilateral lower lobe infiltrates. HOSPITAL COURSE: Patient in the hospital was treated for hypercarbic respiratory failure in the ICU with noninvasive support. She has home Bipas and is noncompliant for MARY. Was treated for possible asthma exacerbation with steroids. Patient's symptoms improved over the course of her stay and she was moved from ICU. Patient had an Echo with an EF 60-65%, and aortic sclerosis. Patient has atrial fibrillation, paroxysmal. Was started on Digoxin which was changed to every other day due to toxicity. Was also started on amiodarone and diltiazem. For anticoagulation was started on Eliquis BID. Will need cardiology outpatient consult in the next 2 weeks for the amiodarone loading dose. DISCHARGE MEDICATIONS: Please see below. ALLERGIES: Please see below. PHYSICAL EXAMINATION ON DISCHARGE: VITAL SIGNS: Please see below. GENERAL: Alert, cooperative. HEENT: Atraumatic. NECK: Supple. CARDIOVASCULAR EXAMINATION: Normal s1, s2. RESPIRATORY EXAMINATION: Clear to auscultation. ABDOMINAL EXAMINATION: Soft, nondistended. EXTREMITIES: No lower extremity edema. SKIN: No rashes. NEUROLOGICAL EXAMINATION: Answers questions appropriately. PSYCHIATRIC EXAMINATION: Normal affect. LABORATORY DATA: Please see below. IMAGING: Chest radiograph 06/13/18 Cardiomegaly with findings to suggest pulmonary edema. Bibasilar infiltrates and possible left pleural effusion. 06/16/[address] 1. Cardiomegaly with moderate pulmonary vascular congestion and interstitial edema including moderate lower lobe and lingular atelectasis. 2. Congenital right-sided aortic arch. 3. Small focus of possible infiltrate in the right upper lobe. Echocardiogram 06/15/18 1. Technically limited study due to poor acoustic window secondary to body habitus. 2. Normal global left ventricular systolic function. 3. Aortic valve sclerosis with no stenosis or aortic regurgitation. There was no aortic regurgitation. 4. Mitral annulus calcification. There was a mildly dilated left atrium probably related to underlying left ventricular diastolic dysfunction. There was no mitral regurgitation or mitral stenosis. 5. The right heart chambers appear to be mildly enlarged. Conduction of the right ventricular free wall seems to be normal. No significant tricuspid regurgitation detected. 6. Mildly enlarged left atrium, central venous pressure might be elevated. PROGNOSIS: Improved ACTIVITY: As tolerated. DIET: Consistent Carbohydrate DISCHARGE PLAN: Discharge to [facility] DISPOSITION: DISCHARGE INSTRUCTIONS: 1. Follow up with PCP with the week following discharge from hospital. 2. Continue Amiodarone 200 mg PO BID, Eliquis 5 mg PO BID, Digoxin 125 mcg PO q48h, Diltiazem 360 PO daily. Stop Metoprolol 25 mg BID PO. 3. Cardiology consult, Dr. Camarillo within 2 weeks of discharge. Call to make appointment. DISCHARGE CONDITION: Stable. TIME SPENT ON DISCHARGE: Greater than 30 minutes. Vital Signs/I&Os Vital Signs Date Time Temp Pulse Resp B/P (MAP) Pulse Ox O2 Delivery O2 Flow Rate FiO2 06/22/18 17:43 82 122/86 06/22/18 14:00 97.6 21 98 06/22/18 09:00 1.0 06/21/18 22:30 Nasal Cannula 06/17/18 18:00 30 I&O- Last 24 Hours up to 6 AM 06/22/18 06:00 Intake Total 1230 ml Output Total 0 ml Balance 1230 ml Laboratory Data Labs 24H Laboratory Tests 2 06/21/18 19:39: Bedside Glucose (Misc Panel) 193H 06/22/18 05:27: Bedside Glucose (Misc Panel) 144H 06/22/18 11:30: Bedside Glucose (Misc Panel) 114 06/22/18 16:22: Bedside Glucose (Misc Panel) 133H FSBS Laboratory Tests Test 06/21/18 19:39 06/22/18 05:27 06/22/18 11:30 06/22/18 16:22 Range/Units Bedside Glucose (Misc Panel) 193 144 114 133 80-115 MG/DL Microbiology Microbiology 06/16/18 Blood Culture - Final, Complete NO GROWTH AFTER 5 DAYS 06/16/18 Blood Culture - Final, Complete NO GROWTH AFTER 5 DAYS 06/13/18 Blood Culture - Final, Complete NO GROWTH AFTER 5 DAYS 06/13/18 Blood Culture - Final, Complete Staphylococcus Warneri Discharge Medications Scheduled (Digoxin) 125 Mcg Tab, 0.125 MG PO Q48H Amiodarone HCl (Amiodarone HCl) 200 Mg Tab, 200 MG PO Q12H Apixaban Base (Eliquis) 5 Mg Tab, 5 MG PO BID Atorvastatin Calcium (Atorvastatin Calcium) 80 Mg Tab, 80 MG PO QHS, (Reported) Clopidogrel Bisulfate (Clopidogrel) 75 Mg Tab, 75 MG PO QPM, (Reported) TAKES AT 1700 Diltiazem HCl (Diltiazem HCl) 30 Mg Tab, 360 MG PO DAILY Ergocalciferol (Vitamin D) 50,000 Unit Cap, 50,000 UNIT PO ASDIRECTED, (Reported) TAKES EVERY 56 DAYS Ezetimibe (Zetia) 10 Mg Tab, 10 MG PO QHS, (Reported) Fenofibrate (Fenofibrate Micronized) 67 Mg Cap, 67 MG PO DAILY, (Reported) Fluticasone/Vilanterol (Breo Ellipta 100-25 Mcg/INH) 1 Inh Inh, 1 PUFF PO DAILY, (Reported) Furosemide (Furosemide) 20 Mg Tab, 40 MG PO DAILY, (Reported) Insulin Glargine (Lantus Solostar) 100 Unit/Ml Inj, 20 UNITS SC QAM, (Reported) 0600 Levothyroxine Sodium (Synthroid) 75 Mcg Tab, 75 MCG PO DAILY, (Reported) Linagliptin Base (Tradjenta) 5 Mg Tab, 5 MG PO QHS, (Reported) Oxybutynin Chloride (Oxybutynin Chloride ER) 15 Mg Tab, 15 MG PO DAILY, (Reported) Potassium Chloride (Klor-Con M10) 10 Meq Tabcr, 10 MEQ PO DAILY, (Reported) Senna (Senna-Tabs) 8.6 Mg Tab, 1 TAB PO DAILY, (Reported) Sertraline Hcl (Zoloft) 100 Mg Tab, 150 MG PO DAILY, (Reported) Tiotropium [place] Monohydrate (Spiriva Respimat) 2.5 Mcg/Act Spr, 2 INHALATION INH QHS, (Reported) Scheduled PRN Acetaminophen (Acetaminophen) 325 Mg Tab, 650 MG PO Q6H PRN for PAIN, (Reported) Albuterol Sulfate (Proair Hfa) 108 Mcg/Act Aer, 1 PUFF INH Q4H PRN for SHORTNESS OF BREATH, (Reported) Diphenhydramine HCl (Diphenhydramine HCl) 25 Mg Cap, 25 MG PO Q8H PRN for ITC RILEY, (Reported) Loperamide HCl (Loperamide HCl) 2 Mg Cap, 2 MG PO QID PRN for AFTER EACH LOOSE STOOL, (Reported) Allergies Coded Allergies: Soap (Verified Allergy, Intermediate, REDNESS, 02/22/17) DIAP SOAP Dextromethorphan (Unverified Allergy, Unknown, HIVES, 02/22/17) Hydrocodone (Unverified Allergy, Unknown, 02/22/17) Latex (Verified Allergy, Unknown, RASH, 02/22/17) GME ATTESTATION GME ATTESTATION My faculty preceptor for this patient encounter was physically present during the encounter and was fully available. All aspects of the patient interview, examination, medical decision making process, and medical care plan development were reviewed and approved by the faculty preceptor. The faculty preceptor is aware and concurs with the plan as stated in the body of this note and will attest to such by his/her cosignature. MÓNICA ESCOBAR DO Jun 22, 2018 18:34
[2018-06-22] MEDS: AMIODARONE 200 MG TAB (PACERONE) PO SCH (20:43)
[2018-06-22] MEDS: ACETAMINOPHEN TAB 650MG DOSE (2X325MG) PO PRN (20:45)
[2018-06-22] MEDS: LEVEMIR (INSULIN DETEMIR) 1 UNITS/0.01ML SC SCH (20:46)
[2018-06-22 22:00] VITALS: BP 139/65
[2018-06-23] MEDS: IPRATROPIUM 0.5MG/ALBUTEROL 2.5MG INH SOL UD 3ML (DUONEB)(J7620) NEB SCH ×6 (03:11→23:30)
[2018-06-23] MEDS: LEVOTHYROXINE 75MCG TABLET (0.075MG) PO SCH (05:40)
[2018-06-23 06:00] VITALS: BP 137/80
[2018-06-23 06:31] LABS: HEMATOCRIT 36.3 % (36.0-47.0); HEMOGLOBIN 9.6 g/dl (12.0-15.5); MEAN CORPUSCULAR HEMOGLOBIN 21.1 pg (27.0-33.0); MEAN CORPUSCULAR HGB CONC 26.4 g/dl (32.0-36.5); PLATELET COUNT, AUTOMATED 162 10^3/uL (150-450); RED BLOOD COUNT 4.54 10^6/uL (4.00-5.40); WHITE BLOOD COUNT 7.3 10^3/uL (4.0-10.0)
[2018-06-23] MEDS: HumaLOG INSULIN (NovoLOG) PER UNIT SC SCH ×5 (07:30→20:15)
[2018-06-23] MEDS: PANTOPRAZOLE 40MG TAB (PROTONIX) PO SCH (08:31)
[2018-06-23] MEDS: FUROSEMIDE 40 MG TAB PO SCH (08:32)
[2018-06-23] MEDS: APIXABAN 5 MG TAB (ELIQUIS) PO SCH ×2 (08:32→20:19)
[2018-06-23] MEDS: DIGOXIN 0.125 MG TAB PO SCH (08:33)
[2018-06-23] MEDS: AMIODARONE 200 MG TAB (PACERONE) PO SCH ×2 (08:33→20:19)
[2018-06-23] MEDS: NYSTATIN 100,000 UNITS/GM TOPICAL PWD 15 GM TOP SCH ×2 (08:34→20:21)
[2018-06-23] MEDS: ADVAIR HFA 230/21MCG INHALER INH SCH ×2 (09:30→19:36)
[2018-06-23 14:00] VITALS: BP 138/63
[2018-06-23] MEDS: IPRATROPIUM 0.5MG/ALBUTEROL 2.5MG INH SOL UD 3ML (DUONEB)(J7620) NEB PRN (14:54)
[2018-06-23] MEDS: ACETAMINOPHEN TAB 650MG DOSE (2X325MG) PO PRN (20:20)
[2018-06-23] MEDS: LEVEMIR (INSULIN DETEMIR) 1 UNITS/0.01ML SC SCH (20:21)
[2018-06-23 22:00] VITALS: BP 133/61
[2018-06-24] MEDS: IPRATROPIUM 0.5MG/ALBUTEROL 2.5MG INH SOL UD 3ML (DUONEB)(J7620) NEB SCH ×5 (04:00→23:06)
[2018-06-24] MEDS: LEVOTHYROXINE 75MCG TABLET (0.075MG) PO SCH (05:43)
[2018-06-24 06:00] VITALS: BP 126/50
[2018-06-24] MEDS: ADVAIR HFA 230/21MCG INHALER INH SCH ×2 (07:26→20:27)
[2018-06-24] MEDS: HumaLOG INSULIN (NovoLOG) PER UNIT SC SCH ×4 (08:56→20:33)
[2018-06-24] MEDS: AMIODARONE 200 MG TAB (PACERONE) PO SCH ×2 (08:56→20:45)
[2018-06-24] MEDS: FUROSEMIDE 40 MG TAB PO SCH (08:56)
[2018-06-24] MEDS: PANTOPRAZOLE 40MG TAB (PROTONIX) PO SCH (08:56)
[2018-06-24] MEDS: NYSTATIN 100,000 UNITS/GM TOPICAL PWD 15 GM TOP SCH ×2 (08:56→20:45)
[2018-06-24] MEDS: APIXABAN 5 MG TAB (ELIQUIS) PO SCH ×2 (08:56→20:45)
[2018-06-24 14:00] VITALS: BP 129/62
[2018-06-24] MEDS: LEVEMIR (INSULIN DETEMIR) 1 UNITS/0.01ML SC SCH (20:45)
[2018-06-24 22:00] VITALS: BP 117/56
[2018-06-25] MEDS: IPRATROPIUM 0.5MG/ALBUTEROL 2.5MG INH SOL UD 3ML (DUONEB)(J7620) NEB SCH ×3 (04:00→12:00)
[2018-06-25] MEDS: LEVOTHYROXINE 75MCG TABLET (0.075MG) PO SCH (05:22)
[2018-06-25 06:00] VITALS: BP 125/50
[2018-06-25] MEDS: APIXABAN 5 MG TAB (ELIQUIS) PO SCH (08:03)
[2018-06-25] MEDS: HumaLOG INSULIN (NovoLOG) PER UNIT SC SCH ×2 (08:03→12:17)
[2018-06-25] MEDS: DIGOXIN 0.125 MG TAB PO SCH (08:04)
[2018-06-25] MEDS: AMIODARONE 200 MG TAB (PACERONE) PO SCH (08:04)
[2018-06-25] MEDS: NYSTATIN 100,000 UNITS/GM TOPICAL PWD 15 GM TOP SCH (08:04)
[2018-06-25] MEDS: PANTOPRAZOLE 40MG TAB (PROTONIX) PO SCH (08:04)
[2018-06-25] MEDS: FUROSEMIDE 40 MG TAB PO SCH (08:04)
[2018-06-25] MEDS: ADVAIR HFA 230/21MCG INHALER INH SCH (09:01)
[2018-06-25 12:17] VITALS: BP 134/62
[2018-06-25] MEDS ORDERED: DILT360C16 PO (13:55)
[2018-06-25] MEDS ORDERED: AMIO200T PO (13:55)
[2018-06-25] MEDS ORDERED: ELIQ5TAB PO (13:55)
[2018-06-25] MEDS ORDERED: DIGO0.12 PO (13:55)
== END 2018-06-25 12:30 | DRG 291 ==
LOC: M ED 12:39 → M ED INP 14:42 → M ICU 17:28 → M MSPAV 06-20 13:08
PROVIDERS: ADMIT Internal Medicine; ATTEND Family Medicine
DX: I13.0 Hypertensive heart and chronic kidney disease with heart failure and stage 1 through stage 4 chronic kidney disease, or unspecified chronic kidney disease (principal); J96.21 Acute and chronic respiratory failure with hypoxia; J18.9 Pneumonia, unspecified organism; I50.41 Acute combined systolic (congestive) and diastolic (congestive) heart failure; J96.22 Acute and chronic respiratory failure with hypercapnia; J44.1 Chronic obstructive pulmonary disease with (acute) exacerbation; E66.2 Morbid (severe) obesity with alveolar hypoventilation; N17.9 Acute kidney failure, unspecified; Z66 Do not resuscitate; N18.3 Chronic kidney disease, stage 3 (moderate); G47.33 Obstructive sleep apnea (adult) (pediatric); I48.0 Paroxysmal atrial fibrillation; Z79.899 Other long term (current) drug therapy; Z91.040 Latex allergy status; Z88.5 Allergy status to narcotic agent; Z88.8 Allergy status to other drugs, medicaments and biological substances; Z79.4 Long term (current) use of insulin; E03.9 Hypothyroidism, unspecified; F32.9 Major depressive disorder, single episode, unspecified; Z99.81 Dependence on supplemental oxygen; I25.10 Atherosclerotic heart disease of native coronary artery without angina pectoris; Z95.2 Presence of prosthetic heart valve; Z91.19 Patient's noncompliance with other medical treatment and regimen; E78.5 Hyperlipidemia, unspecified; D64.9 Anemia, unspecified; K59.00 Constipation, unspecified

== ENCOUNTER 2018-08-18 03:19 | Inpatient (IN) | payer MEDICARE, MEDICAID ==
[~2018-08-18] VITALS: Ht 152.4 cm; Wt 100.0 kg
[~2018-08-18 03:19] MED LIST changes: +AMIO200T PO; +DIGO0.12 PO; +DILT1CAP10 PO; +DILT30TA PO; +ELIQ5TAB PO; -GLIM2TA PO; +GLIM2TAB29 PO; +NYST-15 TOP; -NYST10PW TOP
--- NOTE | 2018-08-18 07:05 | REPVR ---
EXAM: CT Head Without Contrast EXAM DATE/TIME: 08/18/2018 6:37 AM CLINICAL HISTORY: 63 years old, female; Injury or trauma; Fall; Additional info: Fall, on anticoags TECHNIQUE: Imaging protocol: Axial computed tomography images of the head/brain without contrast. Radiation optimization: All CT scans at this facility use at least one of these dose optimization techniques: automated exposure control; mA and/or kV adjustment per patient size (includes targeted exams where dose is matched to clinical indication); or iterative reconstruction. COMPARISON: CT Head without contrast 11/21/2017 2:11 PM FINDINGS: Brain: Normal. No hemorrhage. No significant white matter disease. No edema. Ventricles: Normal. No ventriculomegaly. Bones/joints: Unremarkable. No acute fracture. Sinuses: Visualized sinuses are unremarkable. No acute sinusitis. Mastoid air cells: Visualized mastoid air cells are unremarkable. No mastoid effusion. Soft tissues: Unremarkable. There is moderate calcification of the carotid arteries in their cavernous portion in addition to calcification of the distal vertebral arteries. IMPRESSION: No acute intracranial abnormality. Electronically signed by: Sheldon Holder On 08/18/2018 07:04:41 AM
[2018-08-18 07:20] LABS: BASO # 0.1 10^3/uL (0.0-0.2); BASO % 0.5 % (0.0-1.0); EOS # 0.2 10^3/uL (0.0-0.50); EOS % 1.7 % (0.0-3.0); HEMATOCRIT 33.2 % (36.0-47.0); HEMOGLOBIN 9.7 g/dl (12.0-15.5); LYMPH % 7.3 % (24.0-44.0); MEAN CORPUSCULAR HEMOGLOBIN 23.2 pg (27.0-33.0); MEAN CORPUSCULAR HGB CONC 29.2 g/dl (32.0-36.5); MEAN CORPUSCULAR VOLUME 79.4 fl (80.0-96.0); MONO # 0.7 10^3/uL (0.0-0.8); MONO % 4.9 % (0.0-5.0); NEUTROPHILS # 11.2 10^3/uL (1.8-7.7); NEUTROPHILS % 84.8 % (36.0-66.0); PLATELET COUNT, AUTOMATED 289 10^3/uL (150-450); RED BLOOD COUNT 4.18 10^6/uL (4.00-5.40); WHITE BLOOD COUNT 13.2 10^3/uL (4.0-10.0)
[2018-08-18 07:29] LABS: INR 1.41; PROTHROMBIN TIME 17.5 SECONDS (12.1-14.4)
[2018-08-18] MEDS ORDERED: ACETAMINOPHEN TAB 650MG DOSE (2X325MG) PO ONE (07:30)
--- NOTE | 2018-08-18 07:42 | ECGEPIP ---
Stationary ECG Study [facility] - ED Test Date: 2018-08-18 Pat Name: QUINN THORNE Department: Room: - Gender: F [employer]ic: LOVELY : 1955 Requested By: LOPEZ Manuel PA-C Order Number: [id number] Reading MD: Irena Salgado Measurements Intervals [place] Rate: 71 P: 76 TN: 266 QRS: 62 QRSD: 107 T: 0 QT: 289 QTc: 315 Interpretive Statements SINUS RHYTHM WITH FIRST DEGREE AV BLOCK INCOMPLETE RIGHT BUNDLE BRANCH BLOCK SEPTAL MYOCARDIAL INFARCTION, OF INDETERMINATE AGE ST DEPRESSION, CONSIDER SUBENDOCARDIAL INJURY DECREASED RATE 06/18/18 Electronically Signed On 08-18-2018 7:42:15 EDT by Irena Salgado
[2018-08-18 07:58] LABS: BLOOD UREA NITROGEN 39 MG/DL (7-18); CALCIUM LEVEL 8.6 MG/DL (8.8-10.2); CARBON DIOXIDE LEVEL 37 MEQ/L (21-32); CHLORIDE LEVEL 96 MEQ/L (98-107); CPK CREATINE PHOSPHOKINASE 78 U/L (26-192); CREATININE FOR GFR 2.11 MG/DL (0.55-1.30); GLUCOSE, FASTING 163 MG/DL (70-100); MB/CK RELATIVE INDEX 1.41 (< OR =4); SODIUM LEVEL 137 MEQ/L (136-145); TROPONIN I < 0.02 NG/ML (< 0.10)
--- NOTE | 2018-08-18 08:17 | REP ---
Clinical: Trauma/fall. Technique: AP, lateral, bilateral oblique views of the right foot. Findings: Osteopenia and degenerative changes are appreciated. No obvious acute fracture or dislocation identified. Lateral view demonstrates moderate calcaneal heal spur. Impression: Osteopenia and degenerative changes limit evaluation for subtle injury. No obvious acute fracture or dislocation is appreciated. If the patient remains symptomatic consider reevaluation in 3-5 days. Electronically Signed by Phillip Garcia MD 08/18/2018 08:08 A
--- NOTE | 2018-08-18 08:42 | REP ---
Clinical: Left lower extremity pain and swelling . Technique: Lin scale and color Doppler evaluation using linear high frequency transducer. Findings: Ultrasound examination of the left lower extremity deep venous structures from the common femoral vein to the popliteal vein demonstrates normal compressibility flow and wave patterns in response to respiration and augmentation. There is no evidence for deep venous thrombosis. 2.0 x 0.6 x 1.7 cm Cisse's cyst in the popliteal fossa noted. Impression: No evidence for deep venous thrombosis. Cisse's cyst. Electronically Signed by Phillip Garcia MD 08/18/2018 08:33 A
[2018-08-18] MEDS ORDERED: NS 1,000 ML IV ONE (09:00)
[2018-08-18] MEDS ORDERED: POTASSIUM CHLORIDE 10 MEQ SR TABLET PO ONE (09:15)
--- NOTE | 2018-08-18 10:04 | REP ---
Clinical: Acute renal failure. Technique: Real time mcnamara scale ultrasound examination using curved array transducer. Findings: The right kidney is mildly atrophic and increased echogenicity suggesting chronic renal changes without hydronephrosis. 1 cm simple cyst in the upper pole is identified and intrarenal calculi versus renovascular disease cannot be excluded. Right kidney measures 9.2 x 4.6 x 3.4 cm. The left kidney demonstrates increased central sinus fat suggesting mild chronic renal disease without hydronephrosis. Small nonobstructing intrarenal calculi versus renovascular disease cannot be distinguished. Left kidney measures 11.7 x 5.2 x 4.9 cm. Impression: 1. Chronic medical renal disease with atrophic appearance to the right kidney with bilateral intrarenal nonobstructing calculi versus renovascular disease. 2. No hydronephrosis. Electronically Signed by Phillip Garcia MD 08/18/2018 09:56 A
[2018-08-18] MEDS ORDERED: SENN-23 PO (10:05)
[2018-08-18] MEDS ORDERED: ELIQ5TAB PO (10:05)
[2018-08-18] MEDS ORDERED: DILT1CAP3 PO (10:05)
[2018-08-18] MEDS ORDERED: AMIO200T PO (10:05)
[2018-08-18] MEDS ORDERED: METO25TA PO (10:05)
[2018-08-18] MEDS ORDERED: DIGO0.12 PO (10:05)
[2018-08-18] MEDS ORDERED: MAALOX 30 ML SUSP *UDC PO PRN (10:15)
[2018-08-18] MEDS ORDERED: DEXTROSE 50% 50 ML SYRINGE IV PRN (10:15)
[2018-08-18] MEDS ORDERED: GLUCOSE 4 GM CHEW TABLET PO PRN (10:15)
[2018-08-18] MEDS ORDERED: LOPERAMIDE 2 MG CAP PO PRN (10:15)
[2018-08-18] MEDS ORDERED: ALBUTEROL 90 MCG/ACT 8GM HFA INHALER INH PRN (10:15)
[2018-08-18] MEDS ORDERED: MOM 30ML SUSPENSION UDC PO PRN (10:15)
[2018-08-18] MEDS ORDERED: GLUCAGON FOR INJ 1 MG VIAL (J1610) SC PRN (10:15)
--- NOTE | 2018-08-18 10:26 | HPEPDOC ---
General Date of Admission Primary Care Physician: CYNTHIA GRANDA DO Attending Physician: ARMANDO AMBRIZ MD Chief Complaint The patient is a 63-year-old female admitted with a reason for visit of Foot Pain. Source: Patient Exam Limitations: No limitations Timing/Duration: 24 hours History of Present Illness This is 62 years old, white female from a halfway facility with past medical history of diabetes mellitus, hypertension, A. fib, COPD, was trying to get to the bed when she felt slightly dizzy and hitting her head with the bed and came to ER for further evaluation. Patient complaining of right foot pain on the presentation does not remember the mechanism of her fall. Not sure whether she had left loss of consciousness. No history of palpitation, chest pain, shortness of breath, etc. Patient is being admitted secondary to questionable history of syncope and acute kidney injury Home Medications Scheduled (Digoxin) 125 Mcg Tab, 125 MCG PO Q2D, (Reported) Amiodarone HCl (Amiodarone HCl) 200 Mg Tab, 200 MG PO Q12H, (Reported) Apixaban Base (Eliquis) 5 Mg Tab, 5 MG PO BID, (Reported) Atorvastatin Calcium (Atorvastatin Calcium) 80 Mg Tab, 80 MG PO QHS, (Reported) Clopidogrel Bisulfate (Clopidogrel) 75 Mg Tab, 75 MG PO QPM, (Reported) TAKES AT 1700 Diltiazem HCl (Diltiazem HCl ER) 180 Mg Cap, 360 MG PO DAILY, (Reported) Docusate Sod/Senna (Senna-S 8.6-50 mg) 1 Tab Tab, 1 TAB PO DAILY, (Reported) Ergocalciferol (Vitamin D) 50,000 Unit Cap, 50,000 UNIT PO ASDIRECTED, (Reported) TAKES EVERY 56 DAYS Ezetimibe (Zetia) 10 Mg Tab, 10 MG PO QHS, (Reported) Fenofibrate (Fenofibrate Micronized) 67 Mg Cap, 67 MG PO DAILY, (Reported) Fluticasone/Vilanterol (Breo Ellipta 100-25 Mcg/INH) 1 Inh Inh, 1 PUFF PO DAILY, (Reported) Furosemide (Furosemide) 20 Mg Tab, 40 MG PO DAILY, (Reported) Insulin Glargine (Lantus Solostar) 100 Unit/Ml Inj, 30 UNITS SC BID, (Reported) Levothyroxine Sodium (Synthroid) 75 Mcg Tab, 75 MCG PO DAILY, (Reported) TAKES AT 1100 Linagliptin Base (Tradjenta) 5 Mg Tab, 5 MG PO QHS, (Reported) Metolazone (Metolazone) 2.5 Mg Tab, 2.5 MG PO Q2D, (Reported) Oxybutynin Chloride (Oxybutynin Chloride ER) 15 Mg Tab, 15 MG PO DAILY, (Reported) Potassium Chloride (Klor-Con M10) 10 Meq Tabcr, 10 MEQ PO DAILY, (Reported) Sertraline Hcl (Zoloft) 100 Mg Tab, 150 MG PO DAILY, (Reported) Tiotropium [place] Monohydrate (Spiriva Respimat) 2.5 Mcg/Act Spr, 2 INHALATION INH QHS, (Reported) Scheduled PRN Acetaminophen (Acetaminophen) 325 Mg Tab, 650 MG PO Q6H PRN for PAIN, (Reported) Albuterol Sulfate (Proair Hfa) 108 Mcg/Act Aer, 1 PUFF INH Q4H PRN for SHORTNESS OF BREATH, (Reported) Diphenhydramine HCl (Diphenhydramine HCl) 25 Mg Cap, 25 MG PO Q8H PRN for ITCHING, (Reported) Loperamide HCl (Loperamide HCl) 2 Mg Cap, 2 MG PO QID PRN for AFTER EACH LOOSE STOOL, (Reported) Allergies Coded Allergies: dextromethorphan (Verified Allergy, Intermediate, HIVES, 08/18/18) latex (Verified Allergy, Intermediate, RASH, 08/18/18) hydrocodone (Verified Allergy, Unknown, 08/18/18) soap (Verified Adverse Reaction, Mild, REDNESS, 08/18/18) Past Medical History Medical History Diabetes mellitus, hypertension, A. fib, COPD, hypothyroidism, no history of any surgeries Surgical History None Family History Significant Family History: No pertinent family hx Social History * Smoker: Denies Alcohol: Denies Drugs: denies Review of Systems Constitutional: Denies: Chills, Fever, Night Sweats Eyes: Denies: Pain, Vision change ENT: Denies: Head Aches, Ear Pain, Dysphagia Skin: Denies: Rash, Lesions, Breakdown Pulmonary: Denies: Dyspnea, Cough Cardiovascular: Denies: Chest Pain, Palpitations, Orthopnea, Paroxysmal Noc. Dyspnea, Lt Headedness Gastrointestinal: Denies: Nausea, Vomiting, Abdominal Pain, Diarrhea Genitourinary: Denies: Dysuria, Frequency, Incontinence, Retention Hematologic: Denies: Bruising, Bleeding Excessively Musculoskeletal: Reports: Other Symptoms (height 4. Pain) Neurological: Reports: Other Symptoms (questionable history of syncope); Denies: Weakness, Numbness, Change in speech, Confusion Psych: Reports: Mood Normal; Denies: Depression, Memory Issues Physical Examination General Exam: Positive: Alert, No Acute Distress Eye Exam: Positive: PERRLA, Conjunctiva & lids normal, EOMI; Negative: Sclera icteric ENT Exam: Positive: Atraumatic, Mucous membr. moist/pink, Pharynx Normal Neck Exam: Positive: Supple; Negative: JVD, thyromegaly Chest Exam: Positive: Clear to auscultation, Normal air movement Heart Exam: Positive: Rate Normal, Regular Rhythm, Normal S1, Normal S2; Negative: Murmurs, Rubs Telemetry: Positive: No significant arrhythmia Abdomen Exam: Positive: Normal bowel sounds, Soft; Negative: Tenderness, Hepatospenomegaly Extremity Exam: Positive: Normal pulses; Negative: Clubbing, Cyanosis, Edema Skin Exam: Positive: Nl turgor and temperature; Negative: Breakdown, Lesion Neuro Exam: Positive: Normal Gait, Normal Speech, Cranial Nerves 3-12 NL, Reflexes 2+ Psych Exam: Positive: Mental status NL, Mood NL, Oriented x 3 Vital Signs Vital Signs Date Time Temp Pulse Resp B/P (MAP) Pulse Ox O2 Delivery O2 Flow Rate FiO2 08/18/18 08:46 76 176/88 (117) 98 Nasal Cannula 2.0 08/18/18 06:30 18 08/18/18 03:39 98.1 Laboratory Data Labs 24H Laboratory Tests 2 08/18/18 07:11: Immature Granulocyte % (Auto) 0.8, White Blood Count 13.2H, Red Blood Count 4.18, Hemoglobin 9.7L, Hematocrit 33.2L, Mean Corpuscular Volume 79.4L, Mean Corpuscular Hemoglobin 23.2L, Mean Corpuscular Hemoglobin Concent 29.2L, Red Cell Distribution Width 18.4H, Platelet Count 289, Neutrophils (%) (Auto) 84.8H, Lymphocytes (%) (Auto) 7.3L, Monocytes (%) (Auto) 4.9, Eosinophils (%) (Auto) 1.7, Basophils (%) (Auto) 0.5, Neutrophils # (Auto) 11.2H, Lymphocytes # (Auto) 1.0L, Monocytes # (Auto) 0.7, Eosinophils # (Auto) 0.2, Basophils # (Auto) 0.1, Nucleated Red Blood Cells % (auto) 0.0, Prothrombin Time 17.5H, Prothromb Time International Ratio 1.41, Activated Partial Thromboplast Time 33.0, Anion Gap 4L, Glomerular Filtration Rate 25.0L, Blood Urea Nitrogen 39H, Creatinine 2.11H, Sodium Level 137, Potassium Level 3.0L, Chloride Level 96L, Carbon Dioxide Level 37H, Calcium Level 8.6L, Total Creatine Kinase 78, Creatine Kinase MB 1.0, Creatine Kinase MB Relative Index 1.41, Troponin I < 0.02 CBC/BMP Laboratory Tests 08/18/18 07:11 Red Blood Count 4.18, Mean Corpuscular Volume 79.4 L, Mean Corpuscular Hemoglobin 23.2 L, Mean Corpuscular Hemoglobin Concent 29.2 L, Red Cell Distribution Width 18.4 H, Neutrophils (%) (Auto) 84.8 H, Lymphocytes (%) (Auto) 7.3 L, Monocytes (%) (Auto) 4.9, Eosinophils (%) (Auto) 1.7, Basophils (%) (Auto) 0.5, Neutrophils # (Auto) 11.2 H, Lymphocytes # (Auto) 1.0 L, Monocytes # (Auto) 0.7, Eosinophils # (Auto) 0.2, Basophils # (Auto) 0.1, Calcium Level 8.6 L, Total Creatine Kinase 78 Problems (1) Near syncope Status: Acute Response to Treatment: Stable Problem Text: 63 years old white female resides in the long-term facility with multiple medical problems including paroxysmal A. fib, chronic diastolic heart failure, COPD, hypothyroidism, diabetes mellitus, does not recall the the sequence of fall, she is not sure whether she had a loss of consciousness, but she felt dizzy before and falling and hitting the back of her head to the bed Considering her multiple medical problems most likely cause is probably vasovagal phenomena, but since she has a history of cardiac rhythm a bnormalities. We will admit her to [facility] floor with telemetry Patient will be monitored on the telemetry Serial troponin A.m. level work Echocardiogram in a.m. Cardiology consult if needed Potassium was supplemented for Hypokalemia Continue all her home medications including amiodarone and calcium channel blockers DVT prophylaxis not needed as patient is already on eliquuis and plavix. Carbohydrate consistent diet with fingerstick blood sugar coverage and will continue her baseline long-acting insulin. (2) Acute kidney injury superimposed on CKD Status: Acute Response to Treatment: Stable Problem Text: Patient does have a history of horseshoe kidney Renal sonogram is done but report is pending Patient is on diuretics. We'll hold the diuretics. In the meantime Will start gentle hydration with normal saline 75 mL/h Repeat renal functions in a.m. Follow official renal sonogram report Physical therapy evaluation called Plan / VTE VTE Prophylaxis Ordered?: Yes ARMANDO AMBRIZ MD Aug 18, 2018 10:26
[2018-08-18 11:30] VITALS: BP 126/63
[2018-08-18] MEDS: HumaLOG INSULIN (NovoLOG) PER UNIT SC SCH ×3 (13:06→21:00)
[2018-08-18] MEDS: AMIODARONE 200 MG TAB (PACERONE) PO SCH ×2 (13:07→20:57)
[2018-08-18] MEDS: oxyBUTYnin *DITROPAN XL* 5 MG TABCR PO SCH (13:07)
[2018-08-18] MEDS: SENOKOT S TAB PO SCH (13:07)
[2018-08-18] MEDS: SERTRALINE HCL 50 MG TAB PO SCH (13:08)
[2018-08-18] MEDS: diltiaZEM **CD** 180 MG CAP PO SCH (13:08)
[2018-08-18] MEDS: NS 1,000 ML IV SCH (13:11)
[2018-08-18 14:00] VITALS: BP 145/65
[2018-08-18] MEDS: CLOPIDOGREL 75 MG TAB PO SCH (17:10)
[2018-08-18] MEDS: EZETIMIBE 10 MG TAB (ZETIA) PO SCH (20:57)
[2018-08-18] MEDS: APIXABAN 5 MG TAB (ELIQUIS) PO SCH (20:57)
[2018-08-18] MEDS: ATORVASTATIN 20 MG TAB PO SCH (20:57)
[2018-08-18] MEDS: ACETAMINOPHEN TAB 650MG DOSE (2X325MG) PO PRN (20:58)
[2018-08-18] MEDS: LEVEMIR (INSULIN DETEMIR) 1 UNITS/0.01ML SC SCH (20:58)
[2018-08-18] MEDS: DOCUSATE SODIUM 100 MG CAP PO SCH (21:00)
[2018-08-18 22:00] VITALS: BP 142/63
[2018-08-19] MEDS: NS 1,000 ML IV SCH ×2 (00:29→12:30)
[2018-08-19] MEDS: LEVOTHYROXINE 75MCG TABLET (0.075MG) PO SCH (05:27)
[2018-08-19 06:00] VITALS: BP 130/61
[2018-08-19 06:11] LABS: HEMATOCRIT 33.8 % (36.0-47.0); HEMOGLOBIN 9.5 g/dl (12.0-15.5); MEAN CORPUSCULAR HEMOGLOBIN 22.9 pg (27.0-33.0); MEAN CORPUSCULAR HGB CONC 28.1 g/dl (32.0-36.5); MEAN CORPUSCULAR VOLUME 81.6 fl (80.0-96.0); PLATELET COUNT, AUTOMATED 297 10^3/uL (150-450); RED BLOOD COUNT 4.14 10^6/uL (4.00-5.40); WHITE BLOOD COUNT 10.7 10^3/uL (4.0-10.0)
--- NOTE | 2018-08-19 06:51 | ECHO ---
DATE OF PROCEDURE: 08/18/2018 REFERRING PHYSICIAN: Dr. Gerber INDICATIONS: Syncope. HEIGHT: 150 cm WEIGHT: 100 kg DIMENSIONS: IVS: 1.3 LV: 3.9 LVPW: 1.3 LA: 3.8 Aorta: 2.7 IVC: 2.0 Mitral E wave velocity: 108 A-wave: 123 E prime septal: 6.2 E prime lateral: 5.7 FINDINGS: The study is of rather limited technical quality with difficult visualization. Left ventricle is normal size and has normal systolic function; I estimate left ventricular ejection fraction (LVEF) 65-70%. Mild left ventricular hypertrophy is noted. Right ventricle was poorly seen but grossly appears normal. Left atrium is at least mildly enlarged. Right atrium appears grossly normal. Trace pericardial effusion is noted. Aortic valve is sclerotic but has three leaflets and preserved mobility. There are also degenerative abnormalities of mitral valve with mitral annular calcifications. Tricuspid and pulmonic valves appear normal. Pulmonary artery appears dilated. Inferior vena cava is borderline enlarged but collapses completely with respiration indicative of likely normal or mildly elevated central venous pressure. Aortic root is normal. Aortic arch and abdominal aorta were not well seen. Doppler interrogation of aortic valve reveals no insufficiency and trivial stenosis with mean gradient 8 mmHg. There is trace mitral insufficiency. Tricuspid valve is functionally competent, same applies for pulmonic valve. Mitral inflow pattern and tissue Doppler imaging of mitral annulus reveal grade 1 diastolic dysfunction. CONCLUSIONS: 1. Study is of fair technical quality. 2. Normal LV size with mild left ventricular hypertrophy (LVH) and preserved LV systolic function. Grade 1 diastolic dysfunction. 3. Aortic sclerosis with trivial stenosis and no insufficiency. 4. Degenerative abnormalities of mitral valve with mild mitral insufficiency. 5. Normal or mildly elevated central venous pressure. Unable to estimate pulmonary artery pressure. COMMENTS: Subacute bacterial endocarditis (SBE) prophylaxis is not recommended. The study is most consistent with hypertensive heart disease. No findings suggesting obvious cause of syncope. MTDD
[2018-08-19 07:28] LABS: ALBUMIN 2.7 GM/DL (3.2-5.2); BILIRUBIN,TOTAL 0.3 MG/DL (0.2-1.0); CALCIUM LEVEL 8.5 MG/DL (8.8-10.2); CREATININE FOR GFR 1.49 MG/DL (0.55-1.30); GLOMERULAR FILTRATION RATE 37.4 (>45); MAGNESIUM LEVEL 2.6 MG/DL (1.8-2.4); POTASSIUM SERUM 2.9 MEQ/L (3.5-5.1); TOTAL PROTEIN 6.2 GM/DL (6.4-8.2)
[2018-08-19] MEDS: diltiaZEM **CD** 180 MG CAP PO SCH (08:09)
[2018-08-19] MEDS: oxyBUTYnin *DITROPAN XL* 5 MG TABCR PO SCH (08:09)
[2018-08-19] MEDS: SERTRALINE HCL 50 MG TAB PO SCH (08:09)
[2018-08-19] MEDS: SENOKOT S TAB PO SCH (08:10)
[2018-08-19] MEDS: POTASSIUM CHLORIDE 10 MEQ SR TABLET PO SCH ×3 (08:10→11:21)
[2018-08-19] MEDS: APIXABAN 5 MG TAB (ELIQUIS) PO SCH ×2 (08:11→20:33)
[2018-08-19] MEDS: AMIODARONE 200 MG TAB (PACERONE) PO SCH ×2 (08:11→20:33)
[2018-08-19] MEDS: LEVEMIR (INSULIN DETEMIR) 1 UNITS/0.01ML SC SCH ×2 (08:11→20:34)
[2018-08-19] MEDS: HumaLOG INSULIN (NovoLOG) PER UNIT SC SCH ×4 (08:11→20:33)
[2018-08-19] MEDS: DOCUSATE SODIUM 100 MG CAP PO SCH ×2 (08:11→20:33)
[2018-08-19] MEDS ORDERED: metOLazone 2.5 MG TAB PO SCH (09:00)
[2018-08-19] MEDS ORDERED: POTASSIUM CHLORIDE 10 MEQ SR TABLET PO SCH (09:00)
[2018-08-19 14:00] VITALS: BP 116/53
[2018-08-19] MEDS ORDERED: POTASSIUM CHLORIDE 10 MEQ SR TABLET PO ONE (14:45)
--- NOTE | 2018-08-19 15:01 | IPNPDOC ---
Subjective Date Seen The patient was seen on 08/19/18. Subjective Chief Complaint/HPI no recurrent dizziness Constitutional: Denies: Chills, Fever Eyes: Reports: Pain ENT: Denies: Head Aches Skin: Denies: Rash Pulmonary: Denies: Dyspnea, Cough Cardiovascular: Denies: Chest Pain Gastrointestinal: Denies: Nausea, Vomiting Objective Physical Examination General Exam: Positive: Alert, No Acute Distress Eye Exam: Positive: PERRLA, Conjunctiva & lids normal, EOMI; Negative: Sclera icteric ENT Exam: Positive: Atraumatic, Mucous membr. moist/pink, Pharynx Normal Neck Exam: Positive: Supple; Negative: JVD, thyromegaly Chest Exam: Positive: Clear to auscultation, Normal air movement Heart Exam: Positive: Rate Normal, Regular Rhythm, Normal S1, Normal S2; Negative: Murmurs, Rubs Telemetry: Positive: No significant arrhythmia Abdomen Exam: Positive: Normal bowel sounds, Soft; Negative: Tenderness, Hepatospenomegaly Extremity Exam: Positive: Normal pulses; Negative: Clubbing, Cyanosis, Edema Skin Exam: Positive: Nl turgor and temperature; Negative: Breakdown, Lesion Neuro Exam: Positive: Normal Gait, Normal Speech, Cranial Nerves 3-12 NL, Reflexes 2+ Psych Exam: Positive: Mental status NL, Mood NL, Oriented x 3 Assessment /Plan Problems (1) Near syncope Status: Acute Response to Treatment: Stable Problem Text: favor VV, but r/o arrhythmia criss given hypoK on dig/ami (does not recall the the sequence of fall, she is not sure whether she had a loss of cons ciousness, but she felt dizzy before and falling and hitting the back of her head to the bed) no arrhythmia on telemetry 08/18 CT head NAD (2) Acute kidney injury superimposed on CKD Status: Acute Response to Treatment: Stable Problem Text: favor 2 hypovolemia 2 overdiuresis 08/19 24/1.5 (39/2.1) remains off fur 40/metol 2.5 QOD LR 75H 08/19 K 2.9 (despite 20 po), give 40, change NS to LR and dc metol baseline cr 1.1-1.2 08/18 renal US: 1. Chronic medical renal disease with atrophic appearance to the right kidney with bilateral intrarenal nonobstructing calculi versus renovascular disease. 2. No hydronephrosis. (3) Diastolic congestive heart failure Status: Chronic Problem Text: Euvolemic off metol, fur (4) Paroxysmal A-fib Status: Acute Problem Text: remains SR on HD dilt ER 360, ami 200 BID, dig 125 QOD on HD apixiban (5) Hypokalemia Status: Acute Problem Text: 08/19 2.9 at 530; therefore, given 120 po by Hospitalist-recheck K at 1800 08/19 Mg 2.6 (6) CAD (coronary artery disease) Status: Chronic Problem Text: No angina on HD clopid (7) Hypertension Status: Chronic Problem Text: Stable on regimen as per CHF/AF (8) Hyperlipidemia Status: Chronic Problem Text: on HD ezet 10/atorva 80 (9) Hypothyroid Status: Chronic Problem Text: on HD LT4 75 (10) Diabetes Status: Chronic Problem Text: BG mid 100s on i det 28/12 (HD i glar 30 BID c rhoda 5) (11) Obstructive sleep apnea treated with bilevel positive airway pressure (BiPAP) Status: Chronic Problem Text: Continue HD BIPAP (12) Physical deconditioning Status: Acute Problem Text: 08/19 not safe per PT (13) Anemia of chronic disease Status: Chronic Response to Treatment: Stable Problem Text: at baseline hgb low 9s (14) Right foot pain Status: Acute Problem Text: sp 08/18 fall 08/18 - xray but penia c pain along 1MT shaft; therefore, check CT to ro fx Plan/VTE VTE Prophylaxis Ordered?: Yes VS, I&O, 24H, Fishbone Vital Signs/I&O Vital Signs Date Time Temp Pulse Resp B/P (MAP) Pulse Ox O2 Delivery O2 Flow Rate FiO2 08/19/18 14:00 97.6 70 18 116/53 (74) 95 2.0 08/18/18 10:45 Nasal Cannula I&O- Last 24 Hours up to 6 AM 08/19/18 06:00 Intake Total 3040 ml Output Total 600 ml Balance 2440 ml Laboratory Data 24H LABS Laboratory Tests 2 08/18/18 16:26: Bedside Glucose (Misc Panel) 171H 08/18/18 19:50: Bedside Glucose (Misc Panel) 220H 08/19/18 05:35: Nucleated Red Blood Cells % (auto) 0.0, Anion Gap 6L, Glomerular Filtration Rate 37.4L, Blood Urea Nitrogen 24H, Creatinine 1.49H, Sodium Level 145#, Potassium Level 2.9*L, Chloride Level 105, Carbon Dioxide Level 34H, Calcium Level 8.5L, Aspartate Amino Transf (AST/SGOT) 20, Alanine Aminotransferase (ALT/SGPT) 18, Alkaline Phosphatase 79, Total Bilirubin 0.3, Total Protein 6.2L, Albumin 2.7L, Magnesium Level 2.6H, Albumin/Globulin Ratio 0.77L 08/19/18 11:22: Bedside Glucose (Misc Panel) 121H CBC/BMP Laboratory Tests 08/19/18 05:35 Red Blood Count 4.14, Mean Corpuscular Volume 81.6, Mean Corpuscular Hemoglobin 22.9 L, Mean Corpuscular Hemoglobin Concent 28.1 L, Red Cell Distribution Width 18.4 H, Calcium Level 8.5 L, Aspartate Amino Transf (AST/SGOT) 20, Alanine Aminotransferase (ALT/SGPT) 18, Alkaline Phosphatase 79, Total Bilirubin 0.3, Total Protein 6.2 L, Albumin 2.7 L José Miguel Parekh M.D. Aug 19, 2018 15:01
[2018-08-19] MEDS: LR 1,000 ML IV SCH (15:30)
--- NOTE | 2018-08-19 16:06 | REP ---
Clinical: Trauma. Rule out occult fracture. Technique: Axial noncontrast images through the right foot with coronal and sagittal re-formations. Findings: There is a very subtle nondisplaced fracture involving the distal lateral corner of the medial cuneiform bone as well as a very subtle fracture at the base of the second metatarsal bone. Underlying post traumatic inflammatory changes of the soft tissues are suggested along with generalized age-related degenerative changes. Impression: Very subtle nondisplaced corner fractures involving the medial cuneiform bone and the base of the second metatarsal bone. Electronically Signed by Phlilip Garcia MD 08/19/2018 03:57 P
[2018-08-19] MEDS: CLOPIDOGREL 75 MG TAB PO SCH (17:04)
[2018-08-19 20:30] VITALS: BP_SYST 129; BP_SYST 132; BP_SYST 136; BP_DIAS 60; BP_DIAS 61; BP_DIAS 64
[2018-08-19] MEDS: ATORVASTATIN 20 MG TAB PO SCH (20:33)
[2018-08-19] MEDS: EZETIMIBE 10 MG TAB (ZETIA) PO SCH (20:33)
[2018-08-19 22:00] VITALS: BP 126/59
[2018-08-19] MEDS: diphenhydrAMINE 25 MG CAP PO PRN (23:20)
[2018-08-19] MEDS: ACETAMINOPHEN TAB 650MG DOSE (2X325MG) PO PRN (23:21)
[2018-08-20] MEDS: LR 1,000 ML IV SCH (05:20)
[2018-08-20] MEDS: LEVOTHYROXINE 75MCG TABLET (0.075MG) PO SCH (05:31)
[2018-08-20 06:00] VITALS: BP 122/56
[2018-08-20 06:07] LABS: BASO % 0.3 % (0.0-1.0); EOS # 0.2 10^3/uL (0.0-0.50); EOS % 2.1 % (0.0-3.0); HEMATOCRIT 32.6 % (36.0-47.0); HEMOGLOBIN 8.8 g/dl (12.0-15.5); LYMPH # 0.9 10^3/uL (1.5-4.5); LYMPH % 9.8 % (24.0-44.0); MEAN CORPUSCULAR HEMOGLOBIN 22.6 pg (27.0-33.0); MEAN CORPUSCULAR VOLUME 83.6 fl (80.0-96.0); MONO # 0.5 10^3/uL (0.0-0.8); NEUTROPHILS % 80.1 % (36.0-66.0); PLATELET COUNT, AUTOMATED 267 10^3/uL (150-450); WHITE BLOOD COUNT 8.7 10^3/uL (4.0-10.0)
[2018-08-20 06:45] LABS: ALBUMIN 2.7 GM/DL (3.2-5.2); BILIRUBIN,TOTAL 0.2 MG/DL (0.2-1.0); CALCIUM LEVEL 8.5 MG/DL (8.8-10.2); CREATININE FOR GFR 1.38 MG/DL (0.55-1.30); DIGOXIN LEVEL 1.1 NG/ML (0.5-2.0); GLOMERULAR FILTRATION RATE 40.8 (>45); MAGNESIUM LEVEL 2.6 MG/DL (1.8-2.4); POTASSIUM SERUM 3.9 MEQ/L (3.5-5.1); TOTAL PROTEIN 5.8 GM/DL (6.4-8.2)
[2018-08-20] MEDS: LEVEMIR (INSULIN DETEMIR) 1 UNITS/0.01ML SC SCH ×2 (08:30→20:28)
[2018-08-20] MEDS: HumaLOG INSULIN (NovoLOG) PER UNIT SC SCH ×4 (08:30→20:30)
[2018-08-20] MEDS: oxyBUTYnin *DITROPAN XL* 5 MG TABCR PO SCH (08:37)
[2018-08-20] MEDS: APIXABAN 5 MG TAB (ELIQUIS) PO SCH ×2 (08:38→20:29)
[2018-08-20] MEDS: SERTRALINE HCL 50 MG TAB PO SCH (08:39)
[2018-08-20] MEDS: AMIODARONE 200 MG TAB (PACERONE) PO SCH ×2 (08:39→20:29)
[2018-08-20] MEDS: diltiaZEM **CD** 180 MG CAP PO SCH (08:39)
[2018-08-20] MEDS: ACETAMINOPHEN TAB 650MG DOSE (2X325MG) PO PRN (08:39)
[2018-08-20] MEDS: DOCUSATE SODIUM 100 MG CAP PO SCH ×2 (09:00→20:28)
[2018-08-20] MEDS: SENOKOT S TAB PO SCH (09:00)
--- NOTE | 2018-08-20 09:41 | IPNPDOC ---
Subjective Date Seen The patient was seen on 08/20/18. Subjective Chief Complaint/HPI Pt this morning states that she is feeling really good except for her R foot which is painful and swollen. General: Denies: Fatigue Constitutional: Denies: Chills, Fever Pulmonary: Denies: Dyspnea, Cough Cardiovascular: Denies: Chest Pain, Palpitations Gastrointestinal: Denies: Nausea, Vomiting Neurological: Denies: Weakness Psych: Reports: Mood Normal Objective Physical Examination General Exam: Positive: Alert, No Acute Distress ENT Exam: Positive: Mucous membr. moist/pink Chest Exam: Positive: Clear to auscultation, Normal air movement Heart Exam: Positive: Rate Normal, Regular Rhythm, Normal S1, Normal S2; Negative: Murmurs Telemetry: Positive: No significant arrhythmia Abdomen Exam: Positive: Normal bowel sounds, Soft; Negative: Tenderness, Hepatospenomegaly Extremity Exam: Positive: Swelling (R foot swollen, no erythema) Skin Exam: Positive: Nl turgor and temperature; Negative: Breakdown, Lesion Neuro Exam: Positive: Normal Speech Psych Exam: Positive: Mental status NL, Mood NL Assessment /Plan Problems (1) Metatarsal fracture Status: Acute Problem Text: 2 syncope 08/20 Ortho consulted 08/20/18 Very subtle nondisplaced corner fractures involving the medial cuneiform bone and the base of the second metatarsal bone. (2) Near syncope Status: Acute Response to Treatment: Stable Problem Text: 08/20 Neg Tele 08/19 favor VV, but r/o arrhythmia criss given hypoK on dig/ami (does not recall the the sequence of fall, she is not sure whether she had a loss of consciousness, but she felt dizzy before and falling and hitting the back of her head to the bed) no arrhythmia on telemetry 08/18 CT head NAD (3) Acute kidney injury superimposed on CKD Status: Acute Response to Treatment: Stable, Improving Problem Text: 08/20 Scr 1.38, cont to improve, will d/c IVF favor 2 hypovolemia 2 overdiuresis 08/19 24/1.5 (39/2.1) remains off fur 40/metol 2.5 QOD LR 75H 08/19 K 2.9 (despite 20 po), give 40, change NS to LR and dc metol baseline cr 1.1-1.2 08/18 renal US: 1. Chronic medical renal disease with atrophic appearance to the right kidney with bilateral intrarenal nonobstructing calculi versus renovascular disease. 2. No hydronephrosis. (4) Diastolic congestive heart failure Status: Chronic Problem Text: Euvolemic off metol, fur (5) Paroxysmal A-fib Status: Chronic Problem Text: remains SR on HD dilt ER 360, ami 200 BID, dig 125 QOD on HD apixiban (6) Hypokalemia Status: Resolved Problem Text: 08/19 2.9 at 530; therefore, given 120 po by Hospitalist-recheck K at 1800 08/19 Mg 2.6 (7) CAD (coronary artery disease) Status: Chronic Problem Text: No angina on HD clopid (8) Hypertension Status: Chronic Problem Text: Stable on regimen as per CHF/AF (9) Hyperlipidemia Status: Chronic Problem Text: on HD ezet 10/atorva 80 (10) Hypothyroid Status: Chronic Problem Text: on HD LT4 75 (11) Diabetes Status: Chronic Problem Text: BG mid 100s on i det 28/12 (HD i glar 30 BID c rhoda 5) (12) Obstructive sleep apnea treated with bilevel positive airway pressure (BiPA P) Status: Chronic Problem Text: Continue HD BIPAP (13) Physical deconditioning Status: Acute Problem Text: 08/19 not safe per PT (14) Anemia of chronic disease Status: Chronic Response to Treatment: Stable Problem Text: at baseline hgb low 9s Plan/VTE VTE Prophylaxis Ordered?: Yes VS, I&O, 24H, Fishbone Vital Signs/I&O Vital Signs Date Time Temp Pulse Resp B/P (MAP) Pulse Ox O2 Delivery O2 Flow Rate FiO2 08/20/18 06:00 97.9 65 18 122/56 (78) 94 2.0 08/18/18 10:45 Nasal Cannula I&O- Last 24 Hours up to 6 AM 08/20/18 06:00 Intake Total 4140 ml Output Total 0 ml Balance 4140 ml Laboratory Data 24H LABS Laboratory Tests 2 08/19/18 11:22: Bedside Glucose (Misc Panel) 121H 08/19/18 16:28: Bedside Glucose (Misc Panel) 86 08/19/18 19:49: Bedside Glucose (Misc Panel) 115 08/19/18 20:46: Urine Color YELLOW, Urine Appearance CLOUDYH, Urine pH 5.0, Urine Specific [place] 1.011, Urine Protein NEGATIVE, Urine Glucose (UA) NEGATIVE, Urine Ketones NEGATIVE, Urine Blood 2+H, Urine Nitrite POSITIVEH, Urine Bilirubin NEGATIVE, Urine Urobilinogen 0.2, Urine Leukocyte Esterase 3+H, Urine WBC (Auto) TNTCH, Urine RBC (Auto) 26H, Urine Hyaline Casts (Auto) 0, Urine Bacteria (Auto) 2+H, Urine Squamous Epithelial Cells 0, Urine Sperm (Auto) 08/20/18 05:38: Immature Granulocyte % (Auto) 1.7, White Blood Count 8.7, Red Blood Count 3.90L, Hemoglobin 8.8L, Hematocrit 32.6L, Mean Corpuscular Volume 83.6, Mean Corpuscu lar Hemoglobin 22.6L, Mean Corpuscular Hemoglobin Concent 27.0L, Red Cell Distribution Width 18.8H, Platelet Count 267, Neutrophils (%) (Auto) 80.1H, Lymphocytes (%) (Auto) 9.8L, Monocytes (%) (Auto) 6.0H, Eosinophils (%) (Auto) 2.1, Basophils (%) (Auto) 0.3, Neutrophils # (Auto) 7.0, Lymphocytes # (Auto) 0.9L, Monocytes # (Auto) 0.5, Eosinophils # (Auto) 0.2, Basophils # (Auto) 0.0, Nucleated Red Blood Cells % (auto) 0.0, Anion Gap 2L, Glomerular Filtration Rate 40.8L, Blood Urea Nitrogen 20H, Creatinine 1.38H, Sodium Level 143, Potassium Level 3.9, Chloride Level 106, Carbon Dioxide Level 35H, Calcium Level 8.5L, Aspartate Amino Transf (AST/SGOT) 20, Alanine Aminotransferase (ALT/SGPT) 17, Alkaline Phosphatase 71, Total Bilirubin 0.2, Total Protein 5.8L, Albumin 2.7L, Magnesium Level 2.6H, ER-Bhh-T-Type Natriuretic Peptide 1450H, Albumin/Globulin Ratio 0.87L, Digoxin Level 1.1 CBC/BMP Laboratory Tests 08/19/18 17:59 08/20/18 05:38 Red Blood Count 3.90 L, Mean Corpuscular Volume 83.6, Mean Corpuscular Hemoglobin 22.6 L, Mean Corpuscular Hemoglobin Concent 27.0 L, Red Cell Distribution Width 18.8 H, Neutrophils (%) (Auto) 80.1 H, Lymphocytes (%) (Auto) 9.8 L, Monocytes (%) (Auto) 6.0 H, Eosinophils (%) (Auto) 2.1, Basophils (%) (Auto) 0.3, Neutrophils # (Auto) 7.0, Lymphocytes # (Auto) 0.9 L, Monocytes # (Auto) 0.5, Eosinophils # (Auto) 0.2, Basophils # (Auto) 0.0, Calcium Level 8.5 L, Aspartate Amino Transf (AST/SGOT) 20, Alanine Aminotransferase (ALT/SGPT) 17, Alkaline Phosphatase 71, Total Bilirubin 0.2, Total Protein 5.8 L, Albumin 2.7 L Microbiology Microbiology 08/19/18 Urine Culture, Received Pending DIPESH STARR PA-C Aug 20, 2018 09:41 José Miguel Parekh M.D. Aug 20, 2018 15:43
--- NOTE | 2018-08-20 13:35 | CR ---
DATE OF CONSULTATION: 08/20/2018 CHIEF COMPLAINT: Right midfoot fractures. HISTORY OF PRESENT ILLNESS: This 63-year-old female had an episode of syncope and a fall at home, now 3 days ago. She presented to the hospital with syncope and dehydration. She was seen by the chief construction inspector and admitted for foot pain and the above. She apparently felt slightly dizzy at home and hit her head on the bed and came to the emergency room for further evaluation. She has had no previous injury or problems with her foot. PAST MEDICAL HISTORY: Includes diabetes, hypertension, atrial fibrillation (AFib), chronic obstructive pulmonary disease (COPD), hypothyroidism. MEDICATIONS: Include amiodarone, apixaban, atorvastatin, clopidogrel, diltiazem, docusate, ergocalciferol, ezetimibe, fenofibrate, fluticasone, furosemide, insulin, levothyroxine, linagliptin, metolazone, oxybutynin, potassium, sertraline, Tiotropium. ALLERGIES: Allergic reactions to DEXTROMETHORPHAN, HYDROCODONE LATEX, SOAP. SURGICAL HISTORY: Kidney stone removal, as well as cardiac stent. SURGICAL HISTORY: She lives at [facility]. She lives alone. She is a nonsmoker. PHYSICAL EXAMINATION: Vital signs: Temperature 97.9. Blood pressure 122/56. Pulse rate 65. Respiratory rate 18. 94% on 2 liters nasal prongs. She is alert and oriented times three. She answers questions appropriately. She is sitting up in a chair eating breakfast. Mood and affect pleasant, positive. I did not have her formally ambulate, but apparently she was in quite a bit of pain when she tried to ambulate before. Inspection of both her feet reveal a moderate amount of edema on the right midfoot with some plantar bruising. She was able to wiggle her toes, dorsiflex and plantarflex her foot. Range of motion is a little bit stiff, 5 degrees dorsiflexion, 35 degrees plantar flexion verses 10 degrees dorsiflexion and 4 degrees plantar flexion on the other side. Pain to palpation in the midfoot. No other areas of pain to palpation. The foot is warm and well-perfused with good pedal pulses. Capillary refill is 2 seconds or less. Radiograph and CT was reviewed. This shows a fracture at the base of the medial cuneiform, as well as at the base of second metatarsal. These are potentially old. These appear minimally displaced, and the arch is well maintained of the foot. ASSESSMENT AND PLAN: This 63-year-old low-demand female likely did sustain a new fracture to the midfoot on the right side. We will treat this nonweightbearing for approximately 6 weeks' time. For now, she is in hospital. Today, we will await obtain an orthosis boot with plan to see her in clinic tomorrow or the next day when she is discharged home to switch her into a circumferential below-knee fiberglass cast, which we are more able to easily do in clinic. Our nurse practitioner, Morelia, will help to arrange this, and I will so let her nurses know. Nonweightbearing will be achieved for now with the orthosis boot and aid of a walker. I look forward to this pleasant woman in followup.
[2018-08-20 14:00] VITALS: BP 130/59
[2018-08-20] MEDS: CLOPIDOGREL 75 MG TAB PO SCH (17:46)
[2018-08-20] MEDS: diphenhydrAMINE 25 MG CAP PO PRN (20:27)
[2018-08-20] MEDS: ATORVASTATIN 20 MG TAB PO SCH (20:28)
[2018-08-20] MEDS: EZETIMIBE 10 MG TAB (ZETIA) PO SCH (20:29)
[2018-08-20 22:00] VITALS: BP 139/62
[2018-08-21 06:00] VITALS: BP 137/60
[2018-08-21 06:12] LABS: BASO # 0.1 10^3/uL (0.0-0.2); BASO % 0.5 % (0.0-1.0); EOS # 0.3 10^3/uL (0.0-0.50); EOS % 2.7 % (0.0-3.0); HEMATOCRIT 33.3 % (36.0-47.0); HEMOGLOBIN 9.2 g/dl (12.0-15.5); LYMPH # 0.8 10^3/uL (1.5-4.5); LYMPH % 7.4 % (24.0-44.0); MEAN CORPUSCULAR HEMOGLOBIN 23.1 pg (27.0-33.0); MEAN CORPUSCULAR HGB CONC 27.6 g/dl (32.0-36.5); MEAN CORPUSCULAR VOLUME 83.5 fl (80.0-96.0); MONO # 0.7 10^3/uL (0.0-0.8); MONO % 6.1 % (0.0-5.0); NEUTROPHILS # 8.9 10^3/uL (1.8-7.7); NEUTROPHILS % 80.7 % (36.0-66.0); PLATELET COUNT, AUTOMATED 324 10^3/uL (150-450); RED BLOOD COUNT 3.99 10^6/uL (4.00-5.40); WHITE BLOOD COUNT 11.1 10^3/uL (4.0-10.0)
[2018-08-21] MEDS: LEVOTHYROXINE 75MCG TABLET (0.075MG) PO SCH (06:26)
[2018-08-21 06:35] LABS: ANISOCYTOSIS 2+; HYPOCHROMASIA 2+
[2018-08-21 06:36] LABS: ALBUMIN 3.1 GM/DL (3.2-5.2); BILIRUBIN,TOTAL 0.3 MG/DL (0.2-1.0); CALCIUM LEVEL 8.6 MG/DL (8.8-10.2); CREATININE FOR GFR 1.34 MG/DL (0.55-1.30); GLOMERULAR FILTRATION RATE 42.3 (>45); OVALOCYTES 2+; PLATELET ESTIMATE NORMAL (NORMAL)
[2018-08-21] MEDS: HumaLOG INSULIN (NovoLOG) PER UNIT SC SCH (07:30)
[2018-08-21 07:55] VITALS: BP 137/60
[2018-08-21] MEDS: diltiaZEM **CD** 180 MG CAP PO SCH (07:55)
[2018-08-21] MEDS: LEVEMIR (INSULIN DETEMIR) 1 UNITS/0.01ML SC SCH (07:55)
[2018-08-21] MEDS: APIXABAN 5 MG TAB (ELIQUIS) PO SCH (07:55)
[2018-08-21] MEDS: SENOKOT S TAB PO SCH (07:56)
[2018-08-21] MEDS: oxyBUTYnin *DITROPAN XL* 5 MG TABCR PO SCH (07:56)
[2018-08-21] MEDS: SERTRALINE HCL 50 MG TAB PO SCH (07:56)
[2018-08-21] MEDS: AMIODARONE 200 MG TAB (PACERONE) PO SCH (07:56)
[2018-08-21] MEDS: DOCUSATE SODIUM 100 MG CAP PO SCH (07:56)
[2018-08-21] MEDS ORDERED: MACR100C43 PO ×2 (10:24→16:15)
--- NOTE | 2018-08-21 11:16 | DSES ---
DATE OF ADMISSION: 08/18/2018 DATE OF DISCHARGE: 08/21/2018 [facility]: This is a 63-year-old female patient who is currently residing at [facility] who became dizzy after getting up out of bed, falling, striking her head on the bed and came to the emergency room for evaluation. She was also complaining of right foot pain upon evaluation. She was admitted to the hospital for near syncope, acute on chronic kidney disease as well as right foot pain. During her hospitalization she remained on telemetry for 48 hours with negative telemetry results. She had a CT scan. Her hypokalemia hypomagnesemia were replaced during her hospitalization. She underwent x-ray of the foot which was benign. She ultimately then went under a CT scan to rule out fracture, it was noted to have a very subtle nondisplaced corner fractures involving the medial cuneiform bone and the base of the second metatarsal therefore the orthopedic group was consulted, Dr. Hensley placed the patient in a boot with a non-weightbearing status with the recommendation upon discharge the patient followup at the orthopedic group for placement of a cast. DISCHARGE DIAGNOSES: Include: Near syncope, fall, metatarsal fracture, acute kidney injury superimposed on chronic kidney disease, chronic diastolic congestive heart failure, chronic paroxysmal atrial fibrillation, hypokalemia, coronary artery disease, hypertension, hyperlipidemia, hypothyroidism, diabetes mellitus type 2, sleep apnea on BiPAP, anemia of chronic disease. DISCHARGE MEDICATIONS: Include: - acetaminophen 650 mg every 6 hours as needed for pain - ProAir two puffs inhaled every 4 hours as needed for shortness of breath - amiodarone 200 mg by mouth twice a day - apixaban 5 mg by mouth twice daily - atorvastatin 80 mg by mouth at bedtime - Plavix 75 mg by mouth before bed - digoxin 125 mcg by mouth every other day - diltiazem 360 mg by mouth daily - diphenhydramine 25 mg every 8 hours as needed for pruritus - vitamin D2 50,000 units weekly - Zetia 10 mg by mouth at bedtime - fenofibrate 67 mg by mouth daily - Breo Ellipta 100/25 mcg inhaled by mouth daily - furosemide 40 mg daily - Lantus 30 units subcutaneous twice a day - levothyroxine 75 mg daily - Tradjenta 5 mg by mouth at bedtime - loperamide 2 mg up to four times daily as needed for loose stools - Zaroxolyn 2.5 mg every other day - oxybutynin ER 15 mg by mouth daily - potassium chloride 10 mEq by mouth daily - Senna one tablet by mouth daily - Sertraline 150 mg by mouth daily - Spiriva Respimat 2.5 mcg per actuation two puffs inhaled daily DISCHARGE PLAN: Will be to followup with the orthopedic group tomorrow for placement of a cast. Followup with Dr. Humphries in 7-10 days. Activity should be non-weightbearing to the right foot. She will continue physical therapy at [facility]. Diet should be consistent carbohydrate.
[2018-08-21] MEDS ORDERED: FURO40TA2 PO ×2 (16:15)
[2018-08-21] MEDS ORDERED: ENEMENE PR (16:19)
[2018-08-21] MEDS ORDERED: DULC10SU2 PR (16:19)
[2018-08-21] MEDS ORDERED: GLUC1KIT IM (16:19)
[2018-08-21] MEDS ORDERED: MILKSUS7 PO (16:19)
== END 2018-08-21 12:03 | DRG 683 ==
LOC: M ED 03:19 → M ED INP 10:01 → M MSPAV 11:27
PROVIDERS: ADMIT Internal Medicine; ATTEND Family Medicine
DX: N17.9 Acute kidney failure, unspecified (principal); I50.32 Chronic diastolic (congestive) heart failure; I13.0 Hypertensive heart and chronic kidney disease with heart failure and stage 1 through stage 4 chronic kidney disease, or unspecified chronic kidney disease; R55 Syncope and collapse; S92.331A Displaced fracture of third metatarsal bone, right foot, initial encounter for closed fracture; S92.241A Displaced fracture of medial cuneiform of right foot, initial encounter for closed fracture; E87.6 Hypokalemia; E83.42 Hypomagnesemia; N18.3 Chronic kidney disease, stage 3 (moderate); I48.0 Paroxysmal atrial fibrillation; I25.10 Atherosclerotic heart disease of native coronary artery without angina pectoris; E78.5 Hyperlipidemia, unspecified; E03.9 Hypothyroidism, unspecified; E11.9 Type 2 diabetes mellitus without complications; G47.33 Obstructive sleep apnea (adult) (pediatric); D63.1 Anemia in chronic kidney disease; Z79.899 Other long term (current) drug therapy; J44.9 Chronic obstructive pulmonary disease, unspecified; W18.30XA Fall on same level, unspecified, initial encounter; Z91.040 Latex allergy status; Z88.5 Allergy status to narcotic agent; Z88.8 Allergy status to other drugs, medicaments and biological substances; Q63.1 Lobulated, fused and horseshoe kidney; E86.0 Dehydration; E66.9 Obesity, unspecified; Y92.129 Unspecified place in nursing home as the place of occurrence of the external cause

== ENCOUNTER 2018-08-21 15:33 | Inpatient (IN) | payer MEDICARE, MEDICAID ==
[~2018-08-21] VITALS: Ht 152.4 cm; Wt 99.5 kg
[~2018-08-21 15:33] MED LIST changes: +DILT1CAP3 PO; +MACR100C43 PO; +METO25TA PO; +SENN-23 PO
[2018-08-21] MEDS ORDERED: MACR100C43 PO (16:15)
[2018-08-21] MEDS ORDERED: FURO40TA2 PO ×2 (16:15)
[2018-08-21] MEDS ORDERED: GLUC1KIT IM (16:19)
[2018-08-21] MEDS ORDERED: MILKSUS7 PO (16:19)
[2018-08-21] MEDS ORDERED: DULC10SU2 PR (16:19)
[2018-08-21] MEDS ORDERED: ENEMENE PR (16:19)
--- NOTE | 2018-08-21 16:58 | REP ---
Portable chest, 04:43 p.m., single AP sitting view: Comparison is 06/13/2018. There is cardiomegaly, unchanged. The heart obscures the left lower lobe. There is diffuse bilateral interstitial coarsening, unchanged, compatible with chronic pulmonary vascular engorgement. There are no focal infiltrates. The shawna, mediastinum, skeletal structures are well. Impression: Chronic vascular engorgement. Chronic cardiomegaly. Electronically Signed by Tolu Burton MD 08/21/2018 04:49 P
[2018-08-21 17:28] LABS: ABG BASE EXCESS 3.4 (-2.0-2.0); ABG O2 SATURATION 93.1 % (95.0-99.0); ABG PARTIAL PRESSURE O2 74.5 mmHg (75.0-100.0); ABG STANDARD HCO3 27.5 MEQ/L (22.0-26.0); ABG TOTAL CO2 36.9 MEQ/L (23.0-31.0)
[2018-08-21 17:31] LABS: ABG PARTIAL PRESSURE CO2 94.1 mmHg (35.0-45.0); ABG pH (ARTERIAL) 7.176 UNITS (7.350-7.450)
[2018-08-21 17:34] LABS: VENOUS BASE EXCESS 5.2 (-2.0-2.0); VENOUS HCO3 35.9 MEQ/L (23.0-27.0); VENOUS O2 SATURATION 90.6 % (60.0-80.0); VENOUS PARTIAL PRESSURE CO2 97.8 mmHg (38.0-50.0); VENOUS PARTIAL PRESSURE O2 66.3 mmHg (30.0-50.0); VENOUS PH 7.183 UNITS (7.330-7.430); VENOUS TOTAL CO2 38.9 MEQ/L (24.0-28.0)
[2018-08-21 17:35] LABS: BASO % 0.3 % (0.0-1.0); EOS # 0.1 10^3/uL (0.0-0.50); EOS % 0.9 % (0.0-3.0); HEMATOCRIT 35.6 % (36.0-47.0); HEMOGLOBIN 9.6 g/dl (12.0-15.5); LYMPH # 0.5 10^3/uL (1.5-4.5); LYMPH % 4.3 % (24.0-44.0); MEAN CORPUSCULAR HEMOGLOBIN 22.7 pg (27.0-33.0); MEAN CORPUSCULAR VOLUME 84.4 fl (80.0-96.0); MONO # 0.4 10^3/uL (0.0-0.8); NEUTROPHILS # 11.1 10^3/uL (1.8-7.7); NEUTROPHILS % 87.5 % (36.0-66.0); PLATELET COUNT, AUTOMATED 306 10^3/uL (150-450); RED BLOOD COUNT 4.22 10^6/uL (4.00-5.40); WHITE BLOOD COUNT 12.7 10^3/uL (4.0-10.0)
[2018-08-21] MEDS ORDERED: FUROSEMIDE 40 MG/4 ML VIAL (J1940) IV ONE (17:45)
[2018-08-21] MEDS ORDERED: NITROGLYCERIN 2% OINT 1 GM *U/D* PKT TOP ONE (17:45)
[2018-08-21 17:46] LABS: INR 1.59; PROTHROMBIN TIME 19.2 SECONDS (12.1-14.4)
[2018-08-21 17:48] LABS: D-DIMER QUANT 386.27 ng/ml (<500)
[2018-08-21 18:21] LABS: ALBUMIN 3.2 GM/DL (3.2-5.2); ALT/SGPT 23 U/L (12-78); BILIRUBIN,DIRECT < 0.1 MG/DL (0.0-0.2); BILIRUBIN,TOTAL 0.2 MG/DL (0.2-1.0); BLOOD UREA NITROGEN 17 MG/DL (7-18); CALCIUM LEVEL 8.9 MG/DL (8.8-10.2); CARBON DIOXIDE LEVEL 33 MEQ/L (21-32); CHLORIDE LEVEL 104 MEQ/L (98-107); CPK CREATINE PHOSPHOKINASE 113 U/L (26-192); CREATININE FOR GFR 1.41 MG/DL (0.55-1.30); GLOMERULAR FILTRATION RATE 39.8 (>45); GLUCOSE, FASTING 131 MG/DL (70-100); NT-PRO BNP 1519 PG/ML (<125); POTASSIUM SERUM 4.1 MEQ/L (3.5-5.1); SODIUM LEVEL 141 MEQ/L (136-145); TOTAL PROTEIN 6.4 GM/DL (6.4-8.2); TROPONIN I < 0.02 NG/ML (< 0.10)
[2018-08-21] MEDS ORDERED: GLUCOSE 4 GM CHEW TABLET PO PRN (18:30)
[2018-08-21] MEDS ORDERED: DEXTROSE 50% 50 ML SYRINGE IV PRN (18:30)
[2018-08-21] MEDS ORDERED: GLUCAGON FOR INJ 1 MG VIAL (J1610) SC PRN (18:30)
[2018-08-21] MEDS ORDERED: ACETAMINOPHEN TAB 650MG DOSE (2X325MG) PO PRN (18:45)
[2018-08-21] MEDS ORDERED: BISACODYL 10 MG SUPP PR PRN (18:45)
[2018-08-21] MEDS ORDERED: IPRATROPIUM 0.5MG/ALBUTEROL 2.5MG INH SOL UD 3ML (DUONEB)(J7620) NEB PRN (18:45)
--- NOTE | 2018-08-21 19:06 | HPE ---
DATE OF ADMISSION: 08/21/2018 CHIEF COMPLAINT: Acute respiratory failure, suspected flash pulmonary edema. HISTORY: Phyllis Tinsley is a 63-year-old who was just discharged from the hospital today. She was admitted with near syncope, injured her right foot when she became dizzy and fell out of bed. She was in acute superimposed on chronic kidney failure secondary to dehydration. Diuretics were held. She was stable on discharge and was discharged on her usual medicines, including her diuretics. She presents back to the emergency room with acute pulmonary edema. I do not have anything from [place] about what circumstances led to her return, but her blood gas on admission to the emergency room showed hypercapnic respiratory failure. She has a DO NOT RESUSCITATE (DNR) that precludes invasive or noninvasive ventilation. PAST MEDICAL HISTORY: Atrial fibrillation. Type 2 diabetes. Hypertensive heart disease. Hypothyroidism. Sleep apnea. Urinary incontinence. History of depression. Vitamin D deficiency. MEDICATIONS: Discharge medicines were: - Tylenol as needed - albuterol two puffs every 4 hours as needed - amiodarone 200 mg twice daily - Eliquis 5 mg twice a day - atorvastatin 80 mg at bedtime - Plavix 75 mg daily - digoxin 0.125 mcg every other day - diltiazem XR 360 mg daily - Benadryl as needed - vitamin D 50,000 units weekly - Zetia 10 mg daily - fenofibrate 67 mg daily - Breo Ellipta 100/25 one inhalation daily - furosemide 40 mg daily - Lantus insulin 30 units twice daily - levothyroxine 75 mcg daily - Tradjenta 5 mg at bedtime - loperamide 2 mg four times a day as needed - Zaroxolyn 2.5 mg every other day - oxybutynin ER 15 mg daily - potassium chloride 10 mEq daily - Senna daily - sertraline 150 mg daily - Spiriva 2.5 mcg two puffs daily ALLERGIES: DEXTROMETHORPHAN, HYDROCODONE, LATEX, SOAP. REVIEW OF SYSTEMS: Not obtainable. PHYSICAL EXAMINATION: Vital signs: Per flow sheet. General Appearance: She is drowsy. She is not answering questions. Oxygen saturations are mid 90s. HEENT: Unremarkable. There is no jugular venous distention (JVD). Lungs: Lungs have expiratory wheezes, some rales both bases. Heart: Regular rhythm. 1/6 systolic ejection murmur. Abdomen: Soft, nontender, no masses. Trace peripheral edema of her left leg. Right leg is in a boot. Recent echocardiogram was done 08/18/2018. Ejection fraction 65-75%. Trivial aortic stenosis. Mild left ventricular hypertrophy (LVH). Grade 1 diastolic dysfunction. ABG on admission: 7.. IMPRESSION: 1. Acute hypercapnic respiratory failure. Etiology is unknown. She was stable on discharge. Oxygen saturation was 96% this morning. Her lab work all looked good. Renal function was back to baseline, so diuretics were restarted. She could have had some flash pulmonary edema. I will run troponins. Should be aggressively diuresed. She does not want invasive nor noninvasive ventilation. She actually has "comfort measures" as her advanced directives and is DNR. 2. Atrial fibrillation. Continue her Eliquis and amiodarone and digoxin. She is on diltiazem for rate control. Avoid beta blockers due to her lung disease. 3. Hyperlipidemia. Will continue her atorvastatin 80 mg daily. 4. Diabetes. Will reduce the dose of basal insulin and put her on a sliding scale. 5. Depression. Continue her sertraline 150 mg daily.
[2018-08-21] MEDS ORDERED: VITAMIN D 50,000 UNITS CAPSULE (ERGOCALCIFEROL 1.25MG) PO SCH (21:00)
[2018-08-21 21:20] VITALS: BP 139/70
[2018-08-21] MEDS: HumaLOG INSULIN (NovoLOG) PER UNIT SC SCH (21:42)
[2018-08-21] MEDS ORDERED: LevoFLOXacin IV 500 MG in APPROPRIATE DILUENT 1 EA IV ONE (22:00)
[2018-08-21] MEDS: APIXABAN 5 MG TAB (ELIQUIS) PO SCH (22:33)
[2018-08-21] MEDS: AMIODARONE 200 MG TAB (PACERONE) PO SCH (22:33)
[2018-08-21] MEDS: ATORVASTATIN 20 MG TAB PO SCH (22:33)
[2018-08-21] MEDS: CLOPIDOGREL 75 MG TAB PO SCH (22:33)
[2018-08-21] MEDS: EZETIMIBE 10 MG TAB (ZETIA) PO SCH (22:33)
[2018-08-21] MEDS: LEVEMIR (INSULIN DETEMIR) 1 UNITS/0.01ML SC SCH (22:33)
[2018-08-21] MEDS: SENOKOT S TAB PO SCH (22:33)
[2018-08-21] MEDS: IPRATROPIUM 0.5MG/ALBUTEROL 2.5MG INH SOL UD 3ML (DUONEB)(J7620) NEB SCH (23:05)
[2018-08-22] VITALS (7 sets, daily range): BP systolic 111–143; BP diastolic 53–69
[2018-08-22] MEDS: IPRATROPIUM 0.5MG/ALBUTEROL 2.5MG INH SOL UD 3ML (DUONEB)(J7620) NEB SCH ×4 (02:00→19:54)
[2018-08-22] MEDS: FUROSEMIDE 100 MG/10 ML VIAL (J1940) IV SCH ×2 (06:00)
[2018-08-22 06:18] LABS: HEMATOCRIT 34.6 % (36.0-47.0); HEMOGLOBIN 9.4 g/dl (12.0-15.5); MEAN CORPUSCULAR HEMOGLOBIN 22.9 pg (27.0-33.0); MEAN CORPUSCULAR HGB CONC 27.2 g/dl (32.0-36.5); MEAN CORPUSCULAR VOLUME 84.4 fl (80.0-96.0); PLATELET COUNT, AUTOMATED 315 10^3/uL (150-450); WHITE BLOOD COUNT 11.6 10^3/uL (4.0-10.0)
[2018-08-22] MEDS: LEVOTHYROXINE 75MCG TABLET (0.075MG) PO SCH (06:18)
[2018-08-22 06:39] LABS: CALCIUM LEVEL 8.8 MG/DL (8.8-10.2); CREATININE FOR GFR 1.62 MG/DL (0.55-1.30); GLOMERULAR FILTRATION RATE 33.9 (>45); POTASSIUM SERUM 4.5 MEQ/L (3.5-5.1)
--- NOTE | 2018-08-22 08:25 | ECGEPIP ---
Stationary ECG Study [facility] - ED Test Date: 2018-08-21 Pat Name: QUINN THORNE Department: Room: - Gender: F Electronic Publishing Specialist: TC : [id number] Requested By: MADHAVI Espinoza Order Number: [id number] Reading MD: Irena Salgado Measurements Intervals [place] Rate: 69 P: 48 HI: 248 QRS: 63 QRSD: 110 T: 29 QT: 359 QTc: 385 Interpretive Statements SINUS RHYTHM WITH FIRST DEGREE AV BLOCK LOW QRS VOLTAGE IN PRECORDIAL LEADS INCOMPLETE RIGHT BUNDLE BRANCH BLOCK ST DEVIATION AND MODERATE T-WAVE ABNORMALITY, CONSIDER ISCHEMIA SIMILAR 08/18/18 Electronically Signed On 08-22-2018 8:25:08 EDT by Irena Salgado
[2018-08-22] MEDS: HumaLOG INSULIN (NovoLOG) PER UNIT SC SCH ×4 (08:39→20:54)
[2018-08-22] MEDS: diltiaZEM **CD** 180 MG CAP PO SCH (08:40)
[2018-08-22] MEDS: AMIODARONE 200 MG TAB (PACERONE) PO SCH ×2 (08:40→21:05)
[2018-08-22] MEDS: APIXABAN 5 MG TAB (ELIQUIS) PO SCH ×2 (08:40→21:05)
[2018-08-22] MEDS: oxyBUTYnin *DITROPAN XL* 5 MG TABCR PO SCH (08:41)
[2018-08-22] MEDS: SERTRALINE HCL 50 MG TAB PO SCH (08:41)
--- NOTE | 2018-08-22 08:47 | IPNPDOC ---
Subjective Date Seen The patient was seen on 08/22/18. Subjective Chief Complaint/HPI hypoxia Events since last encounter Re-admitted for hypoxia. Patient states was exerting self w/o oxygen at [facility] and became dyspneic. Today, reports feels at baseline, denies c/o. Pulmonary: Reports: Dyspnea (with exertion: patienti states is at baseline); Denies: Cough Cardiovascular: Reports: Orthopnea (at baseline); Denies: Chest Pain, Palpitations, Paroxysmal Noc. Dyspnea, Lt Headedness Genitourinary: Reports: Other Symptoms (Crocker in place draining clear urine) Neurological: Denies: Weakness, Numbness, Change in speech, Confusion Psych: Reports: Mood Normal; Denies: Depression, Memory Issues Objective Physical Examination General Exam: Positive: Alert, Cooperative, No Acute Distress Neck Exam: Positive: Supple; Negative: JVD, thyromegaly Chest Exam: Positive: Normal air movement, Diminished (bibasilar) Heart Exam: Positive: Rate Normal, Regular Rhythm, Normal S1, Normal S2; Negative: Murmurs, Rubs Telemetry: Positive: No significant arrhythmia Extremity Exam: Positive: Normal pulses; Negative: Clubbing, Cyanosis, Edema Skin Exam: Positive: Nl turgor and temperature; Negative: Rash, Breakdown Psych Exam: Positive: Mental status NL, Mood NL, Oriented x 3 Assessment /Plan Problems (1) Acute respiratory failure with hypercapnia Status: Acute Problem Text: Patient has returned to baseline oxygen needs with no complaints. Aggressively diuresed to with a fluid balance of 1L+ (2) Acute kidney injury superimposed on CKD Status: Acute Problem Text: diuresed aggressively. Will hold diuretics this morning. monitor I/O. (3) Diastolic congestive heart failure Status: Chronic (4) Physical deconditioning Status: Chronic (5) Paroxysmal A-fib Status: Chronic Problem Text: currently in sinus rhythm. rate controlled. (6) Hyperlipidemia Status: Chronic (7) Hypertension Status: Chronic (8) Hypothyroid Status: Chronic Problem Text: TSH 15. (9) Diabetes Status: Chronic (10) Depression Status: Chronic (11) COPD without exacerbation Status: Chronic Plan/VTE VTE Prophylaxis Ordered?: Yes (Apixaban) VS, I&O, 24H, Fishbone Vital Signs/I&O Vital Signs Date Time Temp Pulse Resp B/P (MAP) Pulse Ox O2 Delivery O2 Flow Rate FiO2 4/10/19 08:00 97.2 69 20 139/62 (87) 90 3.0 08/21/18 21:00 Nasal Cannula I&O- Last 24 Hours up to 6 AM 08/22/18 06:00 Intake Total 200 ml Output Total 1125 ml Balance -925 ml Laboratory Data 24H LABS Laboratory Tests 2 08/21/18 17:11: Blood Gas Bicarbonate Standard 27.5H, Arterial Blood pH 7.176*L, Arterial Blood Partial Pressure CO2 94.1*H, Arterial Blood Partial Pressure O2 74.5L, Arterial Blood Total CO2 36.9H, Arterial Blood HCO3 34.0H, Arterial Blood Base Excess 3.4H, Arterial Blood Oxygen Saturation 93.1L 08/21/18 17:21: Blood Gas Bicarbonate Standard 29.0, Immature Granulocyte % (Auto) 4.0H, White Blood Count 12.7H, Red Blood Count 4.22, Hemoglobin 9.6L, Hematocrit 35.6L, Mean Corpuscular Volume 84.4, Mean Corpuscular Hemoglobin 22.7L, Mean Corpuscular Hemoglobin Concent 27.0L, Red Cell Distribution Width 18.9H, Platelet Count 306, Neutrophils (%) (Auto) 87.5H, Lymphocytes (%) (Auto) 4.3L, Monocytes (%) (Auto) 3.0, Eosinophils (%) (Auto) 0.9, Basophils (%) (Auto) 0.3, Neutrophils # (Auto) 11.1H, Lymphocytes # (Auto) 0.5L, Monocytes # (Auto) 0.4, Eosinophils # (Auto) 0.1, Basophils # (Auto) 0.0, Nucleated Red Blood Cells % (auto) 0.0, Prothrombin Time 19.2H, Prothromb Time International Ratio 1.59, D-Dimer, Quantitative 386.27, Venous Blood pH 7.183L, Venous Blood Partial Pressure CO2 97.8H, Venous Blood Partial Pressure O2 66.3H, Venous Blood Total Carbon Dioxide 38.9H, Venous Blood HCO3 35.9H, Venous Blood Oxygen Saturation 90.6H, Venous Blood Base Excess 5.2H, Anion Gap 4L, Glomerular Filtration Rate 39.8L, Calcium Level 8.9, Aspartate Amino Transf (AST/SGOT) 31, Alanine Aminotransferase (ALT/SGPT) 23, Alkaline Phosphatase 94, Total Bilirubin 0.2, Direct Bilirubin < 0.1, Total Creatine Kinase 113, Creatine Kinase MB 4.0H, Creatine Kinase MB Relative Index 3.10, Troponin I < 0.02, PK-Hkk-C-Type Natriuretic Peptide 1519H, Total Protein 6.4, Albumin 3.2, Albumin/Globulin Ratio 1.00, Thyroid Stimulating Hormone (TSH) 15.200H, Digoxin Level 1.0 08/21/18 19:09: Bedside Glucose (Misc Panel) 130H 08/21/18 19:39: Urine Color YELLOW, Urine Appearance CLOUDYH, Urine pH 6.0, Urine Specific [place] 1.011, Urine Protein 1+H, Urine Glucose (UA) NEGATIVE, Urine Ketones NEGATIVE, Urine Blood 3+H, Urine Nitrite NEGATIVE, Urine Bilirubin NEGATIVE, Urine Urobilinogen 0.2, Urine Leukocyte Esterase 3+H, Urine WBC (Auto) TNTCH, Urine RBC (Auto) TNTCH, Urine Hyaline Casts (Auto) 0, Urine Bacteria (Auto) 3+H, Urine Squamous Epithelial Cells 1, Urine Sperm (Auto) 08/21/18 21:41: Bedside Glucose (Misc Panel) 148H 08/22/18 05:37: Nucleated Red Blood Cells % (auto) 0.2H, Anion Gap 5L, Glomerular Filtration Rate 33.9L, Blood Urea Nitrogen 25H, Creatinine 1.62H, Sodium Level 140, Potassium Level 4.5, Chloride Level 101, Carbon Dioxide Level 34H, Calcium Level 8.8 CBC/BMP Laboratory Tests 08/21/18 17:21 Red Blood Count 4.22, Mean Corpuscular Volume 84.4, Mean Corpuscular Hemoglobin 22.7 L, Mean Corpuscular Hemoglobin Concent 27.0 L, Red Cell Distribution Width 18.9 H, Neutrophils (%) (Auto) 87.5 H, Lymphocytes (%) (Auto) 4.3 L, Monocytes (%) (Auto) 3.0, Eosinophils (%) (Auto) 0.9, Basophils (%) (Auto) 0.3, Neutrophils # (Auto) 11.1 H, Lymphocytes # (Auto) 0.5 L, Monocytes # (Auto) 0.4, Eosinophils # (Auto) 0.1, Basophils # (Auto) 0.0 08/22/18 05:37 Red Blood Count 4.10, Mean Corpuscular Volume 84.4, Mean Corpuscular Hemoglobin 22.9 L, Mean Corpuscular Hemoglobin Concent 27.2 L, Red Cell Distribution Width 18.7 H, Calcium Level 8.8 Microbiology Microbiology 08/21/18 Blood Culture, Received Pending 08/21/18 Blood Culture, Received Pending 08/21/18 Respiratory Virus Panel (PCR) (AJAY) - Final, Complete 08/21/18 Urine Culture, Received Pending Sheryl Espinosa [facility] Aug 22, 2018 08:46
--- NOTE | 2018-08-22 09:35 | REP ---
Portable chest, 09:18 a.m., single AP sitting view: Comparisons are 08/21/2018, 06/13/2018 and 05/07/2018. The vascular engorgement has significantly decreased. There is chronic cardiomegaly, unchanged. The shawna, mediastinum, skeletal structures are unchanged. Electronically Signed by Tolu Burton MD 08/22/2018 09:26 A
[2018-08-22] MEDS: POTASSIUM CHLORIDE 10 MEQ SR TABLET PO SCH (17:30)
[2018-08-22] MEDS: LEVEMIR (INSULIN DETEMIR) 1 UNITS/0.01ML SC SCH (21:04)
[2018-08-22] MEDS: ATORVASTATIN 20 MG TAB PO SCH (21:04)
[2018-08-22] MEDS: SENOKOT S TAB PO SCH (21:04)
[2018-08-22] MEDS: EZETIMIBE 10 MG TAB (ZETIA) PO SCH (21:05)
[2018-08-22] MEDS: CLOPIDOGREL 75 MG TAB PO SCH (21:05)
[2018-08-23] MEDS: IPRATROPIUM 0.5MG/ALBUTEROL 2.5MG INH SOL UD 3ML (DUONEB)(J7620) NEB SCH ×2 (01:25→07:18)
[2018-08-23] MEDS ORDERED: diphenhydrAMINE 25 MG CAP PO PRN (03:00)
[2018-08-23 04:00] VITALS: BP 125/58
[2018-08-23] MEDS: LEVOTHYROXINE 75MCG TABLET (0.075MG) PO SCH (05:31)
[2018-08-23 05:48] LABS: HEMATOCRIT 31.2 % (36.0-47.0); HEMOGLOBIN 8.6 g/dl (12.0-15.5); MEAN CORPUSCULAR HEMOGLOBIN 22.6 pg (27.0-33.0); MEAN CORPUSCULAR HGB CONC 27.6 g/dl (32.0-36.5); MEAN CORPUSCULAR VOLUME 81.9 fl (80.0-96.0); PLATELET COUNT, AUTOMATED 311 10^3/uL (150-450); RED BLOOD COUNT 3.81 10^6/uL (4.00-5.40); WHITE BLOOD COUNT 11.9 10^3/uL (4.0-10.0)
[2018-08-23 06:08] LABS: CALCIUM LEVEL 8.8 MG/DL (8.8-10.2); CREATININE FOR GFR 1.75 MG/DL (0.55-1.30); GLOMERULAR FILTRATION RATE 31.1 (>45); POTASSIUM SERUM 4.1 MEQ/L (3.5-5.1)
[2018-08-23] MEDS: HumaLOG INSULIN (NovoLOG) PER UNIT SC SCH ×2 (07:41→13:10)
[2018-08-23 08:00] VITALS: BP 132/63
[2018-08-23] MEDS: APIXABAN 5 MG TAB (ELIQUIS) PO SCH (08:48)
[2018-08-23] MEDS: AMIODARONE 200 MG TAB (PACERONE) PO SCH (08:48)
[2018-08-23] MEDS: POTASSIUM CHLORIDE 10 MEQ SR TABLET PO SCH (08:48)
[2018-08-23] MEDS: oxyBUTYnin *DITROPAN XL* 5 MG TABCR PO SCH (08:48)
[2018-08-23 08:49] VITALS: BP 132/63
[2018-08-23] MEDS: diltiaZEM **CD** 180 MG CAP PO SCH (08:49)
[2018-08-23] MEDS: SERTRALINE HCL 50 MG TAB PO SCH (08:50)
[2018-08-23] MEDS ORDERED: FURO40TA2 PO (09:17)
--- NOTE | 2018-08-23 09:38 | DSES ---
DATE OF ADMISSION: 08/21/2018 DATE OF DISCHARGE: 08/23/2018 The patient was admitted to [facility] shortly after being discharged after she was transferred to [facility] where she resides and became short of breath. She was sent back to [facility] emergency room where it was discovered that the patient never had her oxygen placed on her upon arrival at the [facility]. She had oxygen placed and she was started on IV diuresis. It is presumed that the patient went into some flash pulmonary edema secondary to hypoxia and ischemia. She has been aggressively diuresed during her brief hospitalization and at this point is ready for transfer back to [facility]. Patient is feeling back to her baseline. She has no additional concerns this morning. She remains on oxygen and will need to continue to do so. Her Oxygen flow rate is 2-3 liters to maintain her oxygen saturation of 90-94%. DISCHARGE DIAGNOSES: Her discharge diagnoses include acute respiratory failure with hypercapnia, acute on chronic diastolic congestive heart failure, physical deconditioning, diabetes mellitus type 2. DISCHARGE MEDICATIONS: Acetaminophen 650 mg every 6 hours as needed for pain, albuterol ProAir1 puff every hours as needed for shortness of breath. Amiodarone 200 mg by mouth every 12 hours, Apixaban 5 mg by mouth twice a day, atorvastatin 80 mg at bedtime, Dulcolax 10 mg per rectum daily as needed for constipation, Plavix 75 mg by mouth at bedtime, Diltiazem 360 mg by mouth daily, vitamin D 50,000 units once weekly. Zetia 10 mg by mouth at bedtime, fenofibrate 67 mg by mouth daily, Breo Ellipta 100/25 1 inhalation daily, glucagon emergency kit Lantus 30 units subcu twice a day, Synthroid 75 mcg by mouth daily, Tradjenta 5 mg by mouth at bedtime, milk of mag 2400 mg by mouth daily as needed for constipation, Macrobid 100 mg by mouth twice a day, oxybutynin 15 mg by mouth daily, potassium chloride 10 mEq by mouth daily, Senna 1 tablet by mouth at bedtime, Sertraline 150 mg by mouth daily, Fleet enema daily as needed for constipation, Spiriva Respimat 2 puffs inhaled at bedtime, furosemide 40 mg by mouth by mouth daily. DISCHARGE PLAN: Followup with Dr. Yandel in one week. Activity should be per ortho. Her diet should be 2 gram sodium with 1500 mL fluid restriction.
== END 2018-08-23 13:20 | DRG 291 ==
LOC: M ED 15:33 → EDBD 15:33 → M ED INP 18:30 → M PCU 21:20
PROVIDERS: ADMIT Family Medicine; ATTEND Family Medicine
DX: I13.0 Hypertensive heart and chronic kidney disease with heart failure and stage 1 through stage 4 chronic kidney disease, or unspecified chronic kidney disease (principal); J96.02 Acute respiratory failure with hypercapnia; I50.33 Acute on chronic diastolic (congestive) heart failure; N18.3 Chronic kidney disease, stage 3 (moderate); E11.9 Type 2 diabetes mellitus without complications; I48.0 Paroxysmal atrial fibrillation; E55.9 Vitamin D deficiency, unspecified; G47.30 Sleep apnea, unspecified; E03.9 Hypothyroidism, unspecified; F32.9 Major depressive disorder, single episode, unspecified; Z79.01 Long term (current) use of anticoagulants; Z79.899 Other long term (current) drug therapy; Z66 Do not resuscitate; Z88.5 Allergy status to narcotic agent; Z91.040 Latex allergy status; Z88.8 Allergy status to other drugs, medicaments and biological substances; E78.5 Hyperlipidemia, unspecified; J44.9 Chronic obstructive pulmonary disease, unspecified; E66.9 Obesity, unspecified; I25.2 Old myocardial infarction

== ENCOUNTER → 2018-08-27 | Outpatient (REF) | payer MEDICARE, MEDICAID ==
[~2018-08-27] MED LIST changes: +DULC10SU2 PR; +ENEMENE PR; +FURO40TA2 PO; +GLUC1KIT IM; +MILKSUS7 PO
[2018-08-27 09:47] LABS: HEMATOCRIT 31.6 % (36.0-47.0); HEMOGLOBIN 8.8 g/dl (12.0-15.5); MEAN CORPUSCULAR HEMOGLOBIN 22.6 pg (27.0-33.0); MEAN CORPUSCULAR HGB CONC 27.8 g/dl (32.0-36.5); PLATELET COUNT, AUTOMATED 301 10^3/uL (150-450); WHITE BLOOD COUNT 11.4 10^3/uL (4.0-10.0)
[2018-08-27 10:53] LABS: CREATININE FOR GFR 1.43 MG/DL (0.55-1.30); GLOMERULAR FILTRATION RATE 39.2 (>45); POTASSIUM SERUM 3.5 MEQ/L (3.5-5.1)
== END ==
PROVIDERS: ATTEND Internal Medicine
DX: I50.9 Heart failure, unspecified (principal)

== ENCOUNTER → 2018-09-03 | Outpatient (REF) | payer MEDICARE, MEDICAID ==
[2018-09-03 14:27] LABS: HEMOGLOBIN 8.5 g/dl (12.0-15.5); MEAN CORPUSCULAR HEMOGLOBIN 22.6 pg (27.0-33.0); MEAN CORPUSCULAR HGB CONC 27.4 g/dl (32.0-36.5); MEAN CORPUSCULAR VOLUME 82.4 fl (80.0-96.0); PLATELET COUNT, AUTOMATED 278 10^3/uL (150-450); RED BLOOD COUNT 3.76 10^6/uL (4.00-5.40); WHITE BLOOD COUNT 10.5 10^3/uL (4.0-10.0)
[2018-09-03 14:55] LABS: CALCIUM LEVEL 8.7 MG/DL (8.8-10.2); CREATININE FOR GFR 1.44 MG/DL (0.55-1.30); GLOMERULAR FILTRATION RATE 38.9 (>45)
== END ==
PROVIDERS: ATTEND Internal Medicine
DX: I50.9 Heart failure, unspecified (principal)

== ENCOUNTER → 2018-09-06 | Outpatient (REF) | payer MEDICARE, MEDICAID ==
[~2018-09-06] MED LIST changes: +BREO1INH3 INH
[2018-09-06 10:40] LABS: HEMATOCRIT 31.4 % (36.0-47.0); HEMOGLOBIN 8.5 g/dl (12.0-15.5); MEAN CORPUSCULAR HEMOGLOBIN 22.7 pg (27.0-33.0); MEAN CORPUSCULAR HGB CONC 27.1 g/dl (32.0-36.5); MEAN CORPUSCULAR VOLUME 83.7 fl (80.0-96.0); PLATELET COUNT, AUTOMATED 315 10^3/uL (150-450); RED BLOOD COUNT 3.75 10^6/uL (4.00-5.40); WHITE BLOOD COUNT 10.2 10^3/uL (4.0-10.0)
[2018-09-06 11:07] LABS: CALCIUM LEVEL 8.6 MG/DL (8.8-10.2); CREATININE FOR GFR 1.34 MG/DL (0.55-1.30); GLOMERULAR FILTRATION RATE 42.3 (>45)
== END ==
PROVIDERS: ATTEND Internal Medicine
DX: N18.9 Chronic kidney disease, unspecified (principal); D64.9 Anemia, unspecified; I50.9 Heart failure, unspecified

== ENCOUNTER → 2018-09-10 | Outpatient (REF) | payer MEDICARE, MEDICAID ==
[2018-09-10 09:52] LABS: HEMATOCRIT 31.8 % (36.0-47.0); HEMOGLOBIN 8.4 g/dl (12.0-15.5); MEAN CORPUSCULAR HEMOGLOBIN 22.5 pg (27.0-33.0); MEAN CORPUSCULAR HGB CONC 26.4 g/dl (32.0-36.5); PLATELET COUNT, AUTOMATED 318 10^3/uL (150-450); RED BLOOD COUNT 3.74 10^6/uL (4.00-5.40); WHITE BLOOD COUNT 11.3 10^3/uL (4.0-10.0)
[2018-09-10 10:12] LABS: CALCIUM LEVEL 8.7 MG/DL (8.8-10.2); CREATININE FOR GFR 1.28 MG/DL (0.55-1.30); GLOMERULAR FILTRATION RATE 44.6 (>45); POTASSIUM SERUM 4.1 MEQ/L (3.5-5.1)
== END ==
PROVIDERS: ATTEND Internal Medicine
DX: I50.9 Heart failure, unspecified (principal)

== ENCOUNTER 2018-09-12 07:59 | Emergency (ER) | payer MEDICAID, MEDICARE ==
[~2018-09-12] VITALS: Ht 152.4 cm; Wt 94.1 kg
[~2018-09-12 07:59] MED LIST changes: -BREO1INH3 INH
[2018-09-12 08:26] VITALS: BP 176/74
[2018-09-12] MEDS ORDERED: MORPHINE 2 MG/ML 1ML SYRINGE (J2270) IV ONE (08:30)
[2018-09-12] MEDS ORDERED: FUROSEMIDE 100 MG/10 ML VIAL (J1940) IV ONE (08:30)
[2018-09-12] MEDS ORDERED: LANTINJ4 SC (08:56)
[2018-09-12] MEDS ORDERED: BREO1INH3 INH (09:40)
[2018-09-12] MEDS ORDERED: DIPH25CA PO (09:40)
--- NOTE | 2018-09-12 10:05 | REP ---
PORTABLE CHEST: AP portable view of the chest is performed. COMPARISON: 08/22/2018 New diffuse bilateral infiltrates are seen with cardiomegaly, likely indicating pulmonary edema. Vascular calcifications are present. There are degenerative changes of the spine. Electronically Signed by Tolu Lin MD 09/14/2018 11:43 A
== END 2018-09-12 10:45 | disposition home or self-care (01) ==
LOC: M ED 07:59 → EDBD 07:59 → M ED 10:45
DX: J96.20 Acute and chronic respiratory failure, unspecified whether with hypoxia or hypercapnia (principal); Z51.5 Encounter for palliative care; J81.0 Acute pulmonary edema; I48.91 Unspecified atrial fibrillation; I50.9 Heart failure, unspecified; E11.9 Type 2 diabetes mellitus without complications; I10 Essential (primary) hypertension; G47.30 Sleep apnea, unspecified; I51.7 Cardiomegaly; Z79.4 Long term (current) use of insulin; Z79.899 Other long term (current) drug therapy; Z88.8 Allergy status to other drugs, medicaments and biological substances; Z88.5 Allergy status to narcotic agent; Z91.89 Other specified personal risk factors, not elsewhere classified; Z91.040 Latex allergy status
CPT/HCPCS: 71045; 96374; 96375; 99284; J1940; J2270